=== PATIENT | male | born 1935 | race Caucasian/White ===

== ENCOUNTER → 2017-11-28 14:04 | Outpatient (CLI) | payer MEDICARE, OTHER, SELFPAY ==
[2017-11-28 16:16] LABS: ALB/GLOB Ratio 1.2 RATIO (0.9-2.4); AST(SGOT) 25 U/L (15-37); Alanine Aminotransfer ALT/SGPT 47 U/L (16-61); Albumin, Serum 3.7 g/dL (3.2-5.0); Alkaline Phosphatase 129 U/L (45-117); Anion Gap 8 (5-15); BUN 18 mg/dL (7-18); BUN/Creat Ratio 13.4 RATIO (10-20); Chloride 98 mmol/L (98-107); Creatinine, Serum 1.34 mg/dL (0.70-1.30); EST Glomerular Filtration Rate 54 mL/min (>60); Est Glom Filt Rate - Afr Amer 66 mL/min (>60); Globulin 3.1 g/dL (2.2-4.2); Glucose 144 mg/dL (74-106); Potassium 4.4 mmol/L (3.5-5.1); Protein, Total 6.8 g/dL (6.4-8.2); Sodium Level 138 mmol/L (136-145); Thyroid Stim Hormone (TSH) 6.59 uIU/mL (0.358-3.74); Uric Acid 6.2 mg/dL (3.5-7.2)
[2017-11-28 16:19] LABS: Absolute Lymphocyte Count 1.18 X10^3/ul (0.83-4.51); Absolute Neutrophil Count 9.3 X10^3/uL (2.0-7.7); Basophil# 0.01 X10^3/uL; Basophil% 0.1 % (0-1); Eosinophil# 0.15 X10^3/uL; Eosinophils% 1.3 % (0-5); Hemoglobin 14.9 g/dl (13.0-16.5); Lymphocyte # 1.18 X10^3/ul (4.0); Lymphocyte % 10.4 % (19-41); Mean Corp Hgb Conc 32.4 g/gl (32-36); Mean Corpuscular Hgb 31.2 pg (27.0-32.0); Mean Corpuscular Volume 96.4 fL (80-94); Monocyte# 0.67 X10^3/uL; Monocyte% 5.9 % (0-10); Neutrophil # 9.28 X10^3/uL (2.7-7.7); Platelet Count 197 K/mm3 (150-450); RBC Distribution Width CV 18.2 % (11.6-14.6); RBC Distribution Width SD 64.4 fl (35.1-43.9); Red Blood Count 4.77 M/mm3 (4.6-6.2); White Blood Count 11.3 K/mm3 (4.4-11.0)
[2017-11-28 16:20] LABS: POSITIVE COUNT NO; POSITIVE DIFFERENTIAL NO; POSITIVE MORPHOLOGY NO
== END ==
PROVIDERS: Family Provider Family Medicine Geriatric Medicine; PCP Family Medicine Geriatric Medicine; Visit Provider Family Medicine Geriatric Medicine
DX: E55.9 Vitamin D deficiency, unspecified (principal); I10 Essential (primary) hypertension; M10.9 Gout, unspecified
CPT/HCPCS: 36415; 80053; 82306; 84443; 84550; 85025

== ENCOUNTER → 2018-01-24 14:41 | Outpatient (CLI) | payer MEDICARE, OTHER, SELFPAY ==
[2018-01-23 13:42] LABS: Thyroid Stim Hormone (TSH) 3.33 uIU/mL (0.358-3.74)
== END ==
PROVIDERS: Family Provider Family Medicine Geriatric Medicine; PCP Family Medicine Geriatric Medicine; Visit Provider Family Medicine Geriatric Medicine
DX: E03.9 Hypothyroidism, unspecified (principal)

== ENCOUNTER 2018-03-01 20:30 | Inpatient (IN) | payer MEDICARE, OTHER, SELFPAY ==
--- NOTE | 2018-03-01 12:59 | EKG12_ITS ---
Test Reason : FALL Blood Pressure : / mmHG Vent. Rate : 060 BPM Atrial Rate : 060 BPM P-R Int : 214 ms QRS Dur : 142 ms QT Int : 500 ms P-R-T Axes : 049 -51 -14 degrees QTc Int : 500 ms Sinus rhythm with 1st degree A-V block Right bundle branch block Left anterior fascicular block Bifascicular block Abnormal ECG Confirmed by ERNESTINA MAZA, SUREKHA ([id number]), image editor SAVANAH UMAÑA ([id number]) on 03/06/2018 5:35:49 PM Referred By: Confirmed By:SUREKHA DO MD
--- NOTE | 2018-03-01 16:14 | CT_ITS ---
STUDY: CT BRAIN WITHOUT CONTRAST REASON FOR EXAM: Male, 82 years old. Trauma RADIATION DOSAGE (If Supplied By Facility): CTDIvol = ( 44.99 ) mGy, DLP = ( 863.60 ) mGycm TECHNIQUE: Transaxial CT imaging of the brain was performed without administration of intravenous contrast material. Individualized dose optimization techniques were used for this CT. COMPARISON: None. FINDINGS: Normal soft tissue structures. Normal calvarium. There is calcification of the cavernous carotids Moderate atrophy and advanced periventricular white matter ischemic changes. Normal basal ganglia and thalami. Normal brainstem. Normal cerebellum. There are postsurgical changes of the orbits There is no intracranial hemorrhage. There are no findings of an acute ischemic infarction. Normal visualized paranasal sinuses. CT/Brain/Head without Contrast IMPRESSION: Atrophy and advanced periventricular white matter ischemic changes. No evidence for acute intracranial bleed. Electronically Signed: Marcin Jett MD at 16:33 EDT , Service support ,
--- NOTE | 2018-03-01 16:25 | RAD_ITS ---
STUDY: X-RAY CHEST REASON FOR EXAM: Male, 82 years old. Weakness TECHNIQUE: Frontal and lateral views of the chest. COMPARISON: None. FINDINGS: Chronic appearing increased interstitial lung markings. There is no demonstrated pleural abnormality. Enlarged heart size. Calcified right perihilar lymph node. There is an elevated right hemidiaphragm. Normal visualized pulmonary arteries. There is atherosclerotic calcification of the aortic arch with tortuosity. There are diffuse degenerative changes of the visualized thoracic spine. There is degenerative osteoarthritis of the bilateral shoulders. There is no demonstrated abnormality of the visualized soft tissue structures of the upper abdomen. RAD/Chest PA and Lateral IMPRESSION: There are no acute findings. Electronically Signed: Kojo Lorenzo MD at 16:57 EDT , Service support ,
--- NOTE | 2018-03-02 09:00 | DT_ITS ---
This patient was seen during an EMR downtime February 25, 2018 - March 04, 2018. This patient may have a combination of paper and electronic documentation or all paper documentation. All documentation is viewable within the e-chart portion of [facility] for each patient visit.
[2018-03-03 07:39] LABS: Hematocrit 41.2 % (40-54); Hemoglobin 13.4 g/dl (13.0-16.5); Red Blood Count 4.19 M/mm3 (4.6-6.2); White Blood Count 11.3 K/mm3 (4.4-11.0)
[2018-03-03 07:40] LABS: Mean Corp Hgb Conc 32.5 g/gl (32-36); Mean Corpuscular Volume 98.3 fL (80-94); Mean Platelet Vol. 10.4 fl (6.2-12.0); Platelet Count 194 K/mm3 (150-450); RBC Distribution Width CV 16.7 % (11.6-14.6); RBC Distribution Width SD 59.3 fl (35.1-43.9); Scan Indicated on CBC? Y/N NO
[2018-03-03 12:48] LABS: Anion Gap 7 (5-15); BUN 18 mg/dL (7-18); BUN/Creat Ratio 14.9 RATIO (10-20); Calcium,Total 8.8 mg/dL (8.5-10.1); Chloride 105 mmol/L (98-107); Creatinine, Serum 1.21 mg/dL (0.70-1.30); EST Glomerular Filtration Rate 61 mL/min (>60); Est Glom Filt Rate - Afr Amer 74 mL/min (>60); Glucose 132 mg/dL (74-106); Magnesium 2.3 mg/dL (1.6-2.6); Potassium 4.1 mmol/L (3.5-5.1); Sodium Level 144 mmol/L (136-145)
[2018-03-04] MEDS: Nystatin Powder 15gm Bottle 1 APPLIC TOPICAL ×2 (06:00→21:07)
[2018-03-04] MEDS: Levothyroxine 25 MCG TABLET PO (06:00)
[2018-03-04] MEDS: Carbidopa/Levodopa 25/100 Tablet PO ×2 (06:00→21:06)
[2018-03-04] MEDS: Memantine Hydrochloride 5 MG Tablet 10 MG PO ×2 (08:00→21:08)
[2018-03-04] MEDS: Pantoprazole Sodium 40 MG Tablet PO (08:00)
[2018-03-04] MEDS: Amiodarone 200 MG Tablet 100 MG PO (08:00)
[2018-03-04] MEDS: amLODIPine 10 MG Tablet PO (08:00)
[2018-03-04] MEDS: Galantamine Hydrobromide 4 MG Tablet 12 MG PO ×2 (08:00→21:09)
[2018-03-04] MEDS: Enoxaparin 30 MG/0.3 ML Syringe SC (08:00)
[2018-03-04] MEDS: Aspirin 81 MG TAB.CHEW PO (08:00)
[2018-03-04 09:04] LABS: Bacteria 0 SEEN /hpf (None Seen); Mucous, Urine 0 SEEN /hpf (<or=2+); Red Blood Cells-Urine 0 SEEN /hpf (0-5); Squamous Epithelial Cells - UA 0 SEEN /hpf (0-5)
[2018-03-04 09:12] LABS: Color, Urine Yellow (Yellow); Urine Clarity Clear (Clear)
[2018-03-04 09:13] LABS: Glucose, Dipstick NEGATIVE (Normal); Ketone-Dipstick Negative (Negative); Leukocyte Esterase-Dipstick Negative /ul (Negative); Nitrite-Dipstick Negative (Negative); Occult Blood-Urine Negative /ul (Negative); Protein-Dipstick 30 mg/dl (Negative); Specific Gravity, Urine 1.005 (1.002-1.030); Urine Bilirubin Dipstick Negative (Negative); Urine Urobilinogen Normal (Normal); White Blood Cells 0 SEEN /hpf (0-5)
[2018-03-04 11:05] LABS: Eosinophils% 1.1 % (0-5); Hematocrit 41.5 % (40-54); Hemoglobin 13.7 g/dl (13.0-16.5); Lymphocyte % 7.6 % (19-41); Mean Corpuscular Hgb 32.5 pg (27.0-32.0); Mean Corpuscular Volume 98.6 fL (80-94); Mean Platelet Vol. 10.6 fl (6.2-12.0); Monocyte% 10.1 % (0-10); Neutrophil % 80.9 % (47-70); POSITIVE COUNT NO; POSITIVE DIFFERENTIAL NO; POSITIVE MORPHOLOGY NO; Platelet Count 190 K/mm3 (150-450); RBC Distribution Width CV 16.7 % (11.6-14.6); RBC Distribution Width SD 59.7 fl (35.1-43.9); Red Blood Count 4.21 M/mm3 (4.6-6.2); White Blood Count 9.4 K/mm3 (4.4-11.0)
[2018-03-04 11:06] LABS: Absolute Lymphocyte Count 0.71 X10^3/ul (0.83-4.51); Absolute Neutrophil Count 7.6 X10^3/uL (2.0-7.7); Basophil# 0.01 X10^3/uL; Basophil% 0.1 % (0-1); Lymphocyte # 0.71 X10^3/ul (4.0); Monocyte# 0.95 X10^3/uL; Neutrophil # 7.57 X10^3/uL (2.7-7.7)
[2018-03-04 11:07] LABS: Absolute Nucleated RBC Count 0.02 10^3/uL (0-5); NRBC Flagged by Analyzer 0.2 % (0-5)
[2018-03-04] MEDS: Menthol/Lanolin/Calamine/Znox 113 GM Tube 1 APPLIC TOPICAL ×2 (12:41→21:07)
--- NOTE | 2018-03-04 13:17 | CASEMGMT ---
MARITZA Deirdre spoke w/ and daughter in regard to discharge plan. They would like a referral sent to [facility]. MARITZA called [facility], faxed referral. Miracle is to call Deirdre back to let her know if they can take pt. JEAN Alfonso, CHEMICAL EQUIPMENT REPAIRER
--- NOTE | 2018-03-04 14:06 | PCM.PN.HOSP ---
Patient Problems: Active and Suspected Problems (Last Reviewed 02/13/18 @ 12:52 by Juni Acuna MD) Failure to thrive (Acute) General: Alert, No apparent distress HEENT: Atraumatic, Normocephalic Neck: No Nodes, Thyroid Normal Size and Texture Lungs: Clear to auscultation, Normal air movement, No rhonchi, No wheeze Cardiovascular: Regular rate, Regular Rhythm, Normal S1, Normal S2, No murmurs Abdomen: Bowel Sounds Present, Soft, Non Tender, Non-Distended Extremities: No edema, No Calf Tenderness Current Medications Acetaminophen (Tylenol) 650 mg PO Q4H PRN PRN PRN Reason: PAIN/FEVER Al Hydroxide/Mg Hydroxide (Mylanta Ii) 30 ml PO Q6H PRN PRN PRN Reason: Dyspepsia Amiodarone HCl (Cordarone) 100 mg PO DAILY [facility] Last Admin: 03/04/18 08:00 Dose: 100 mg Amlodipine Besylate (Norvasc) 10 mg PO DAILY [facility] Last Admin: 03/04/18 08:00 Dose: 10 mg Artificial Tears (Tears Naturale, Artificial Tears) 1 drop EACH EYE TID [facility] Last Admin: 03/04/18 06:00 Dose: 1 drop Aspirin (Aspirin, Baby) 81 mg PO DAILY@0800 [facility] Last Admin: 03/04/18 08:00 Dose: 81 mg Calamine/Phenol (Calmoseptine Ointment) 1 applic TOPICAL 4X/DAY [facility] Last Admin: 03/04/18 12:41 Dose: 1 units Carbidopa/Levodopa (Sinemet) 1 tablet PO TID [facility] Last Admin: 03/04/18 06:00 Dose: 1 tablet Enoxaparin Sodium (Lovenox) 30 mg SC DAILY [facility] Last Admin: 03/04/18 08:00 Dose: 30 mg Galantamine Hydrobromide (Razadyne) 12 mg PO BID [facility] Last Admin: 03/04/18 08:00 Dose: 12 mg Hydralazine HCl (Apresoline Iv) 10 mg IV Q4H PRN PRN PRN Reason: SBP > 160 Levothyroxine Sodium (Synthroid) 25 mcg PO DAILY@0600 [facility] Last Admin: 03/04/18 06:00 Dose: 25 mcg Memantine (Namenda) 10 mg PO BID [facility] Last Admin: 03/04/18 08:00 Dose: 10 mg Nystatin (Mycostatin Powder) 1 applic TOPICAL TID [facility] Last Admin: 03/04/18 06:00 Dose: 1 applicatio Ondansetron HCl (Zofran) 4 mg IV Q6H PRN PRN PRN Reason: NAUSEA/VOMITING Oxycodone HCl (Oxyir) 5 - 10 mg PO Q4H PRN PRN PRN Reason: MILD-MOD PAIN (1-5/10) Pantoprazole Sodium (Protonix) 40 mg PO DAILY [facility] Last Admin: 03/04/18 08:00 Dose: 40 mg Sodium Chloride () 5 - 30 ml IV UD PRN PRN Reason: SALINE FLUSH Medical Necessity - Tobacco Use Smoking Status: Former smoker Assessment/Plan All Active Problems (Last Reviewed 02/13/18 @ 12:52 by Juni Acuna MD) Failure to thrive (Acute) Hypomagnesemia (Resolved) Atherosclerosis of coronary artery of [place] heart without angina pectoris (Ruled-out) 1. Failure to thrive d/t PD and AD plan for W, referral sent today 2. Parkinson's disease on Sinemet d/w patient that the goal of a SNF is get him to [place] where he will be safe to return home. Additionally, I explained to him that any gains he makes now, he will inevitably lose on account of the PD 3. VTE proph: lovenox Code Visit Inpatient E&M: 74062 Subs Hosp L2
--- NOTE | 2018-03-04 14:10 | PN_ITS ---
Patient Problems: Active and Suspected Problems (Last Reviewed 02/13/18 @ 12:52 by Juni Acuna MD ) Failure to thrive (Acute) General: Alert, No apparent distress HEENT: Atraumatic, Normocephalic Neck: No Nodes, Thyroid Normal Size and Texture Lungs: Clear to auscultation, Normal air movement, No rhonchi, No wheeze Cardiovascular: Regular rate, Regular Rhythm, Normal S1, Normal S2, No murmurs Abdomen: Bowel Sounds Present, Soft, Non Tender, Non-Distended Extremities: No edema, No Calf Tenderness Current Medications Acetaminophen (Tylenol) 650 mg PO Q4H PRN PRN PRN Reason: PAIN/FEVER Al Hydroxide/Mg Hydroxide (Mylanta Ii) 30 ml PO Q6H PRN PRN PRN Reason: Dyspepsia Amiodarone HCl (Cordarone) 100 mg PO DAILY [facility] Last Admin: 03/04/18 08:00 Dose: 100 mg Amlodipine Besylate (Norvasc) 10 mg PO DAILY [facility] Last Admin: 03/04/18 08:00 Dose: 10 mg Artificial Tears (Tears Naturale, Artificial Tears) 1 drop EACH EYE TID [facility] Last Admin: 03/04/18 06:00 Dose: 1 drop Aspirin (Aspirin, Baby) 81 mg PO DAILY@0800 [facility] Last Admin: 03/04/18 08:00 Dose: 81 mg Calamine/Phenol (Calmoseptine Ointment) 1 applic TOPICAL 4X/DAY [facility] Last Admin: 03/04/18 12:41 Dose: 1 units Carbidopa/Levodopa (Sinemet) 1 tablet PO TID [facility] Last Admin: 03/04/18 06:00 Dose: 1 tablet Enoxaparin Sodium (Lovenox) 30 mg SC DAILY [facility] Last Admin: 03/04/18 08:00 Dose: 30 mg Galantamine Hydrobromide (Razadyne) 12 mg PO BID [facility] Last Admin: 03/04/18 08:00 Dose: 12 mg Hydralazine HCl (Apresoline Iv) 10 mg IV Q4H PRN PRN PRN Reason: SBP > 160 Levothyroxine Sodium (Synthroid) 25 mcg PO DAILY@0600 [facility] Last Admin: 03/04/18 06:00 Dose: 25 mcg Memantine (Namenda) 10 mg PO BID [facility] Last Admin: 03/04/18 08:00 Dose: 10 mg Nystatin (Mycostatin Powder) 1 applic TOPICAL TID [facility] Last Admin: 03/04/18 06:00 Dose: 1 applicatio Ondansetron HCl (Zofran) 4 mg IV Q6H PRN PRN PRN Reason: NAUSEA/VOMITING Oxycodone HCl (Oxyir) 5 - 10 mg PO Q4H PRN PRN PRN Reason: MILD-MOD PAIN (1-5/10) Pantoprazole Sodium (Protonix) 40 mg PO DAILY [facility] Last Admin: 03/04/18 08:00 Dose: 40 mg Sodium Chloride () 5 - 30 ml IV UD PRN PRN Reason: SALINE FLUSH Medical Necessity - Tobacco Use Smoking Status: Former smoker Assessment/Plan All Active Problems (Last Reviewed 02/13/18 @ 12:52 by Juni Acuna MD) Failure to thrive (Acute) Hypomagnesemia (Resolved) Atherosclerosis of coronary artery of [place] heart without angina pectoris ( Ruled-out) 1. Failure to thrive * d/t PD and AD * plan for W, referral sent today 2. Parkinson's disease * on Sinemet * d/w patient that the goal of a SNF is get him to [place] where he will be safe to return home. Additionally, I explained to him that any gains he makes now, he will inevitably lose on account of the PD 3. VTE proph: lovenox Code Visit Inpatient E&M: 52309 Subs Hosp L2
[2018-03-04 15:40] VITALS: BP 166/89; PULSE 62; RESP 16; TEMP 36.6; O2SAT 99
[2018-03-04 15:54] VITALS: BP 166/89; PULSE 62
[2018-03-04] MEDS: hydrALAZINE 20 MG/ML Vial 10 MG IV (15:54)
[2018-03-04 20:50] VITALS: BP 134/64; PULSE 70; RESP 18; TEMP 36.9; O2SAT 98
[2018-03-04 20:54] VITALS: PULSE 70; RESP 18; O2SAT 98
[2018-03-04 21:58] LABS: Anion Gap 5 (5-15); BUN 23 mg/dL (7-18); BUN/Creat Ratio 16.7 RATIO (10-20); Calcium,Total 8.9 mg/dL (8.5-10.1); Chloride 101 mmol/L (98-107); Creatinine, Serum 1.38 mg/dL (0.70-1.30); EST Glomerular Filtration Rate 52 mL/min (>60); Est Glom Filt Rate - Afr Amer 63 mL/min (>60); Glucose 151 mg/dL (74-106); Potassium 4.6 mmol/L (3.5-5.1); Sodium Level 139 mmol/L (136-145)
[2018-03-05 01:37] LABS: Anion Gap 6 (5-15); BUN 19 mg/dL (7-18); BUN/Creat Ratio 14.4 RATIO (10-20); Calcium,Total 8.5 mg/dL (8.5-10.1); Chloride 103 mmol/L (98-107); Creatinine, Serum 1.32 mg/dL (0.70-1.30); EST Glomerular Filtration Rate 55 mL/min (>60); Est Glom Filt Rate - Afr Amer 67 mL/min (>60); Glucose 193 mg/dL (74-106); Phosphorus 2.2 mg/dL (2.5-4.9); Potassium 3.8 mmol/L (3.5-5.1); Sodium Level 139 mmol/L (136-145)
[2018-03-05 01:38] LABS: T4 Free Direct 1.24 ng/dL (0.76-1.46); Thyroid Stim Hormone (TSH) 2.62 uIU/mL (0.358-3.74)
[2018-03-05 03:20] VITALS: BP 135/77; PULSE 68; RESP 18; TEMP 36.7; O2SAT 96
[2018-03-05 03:28] VITALS: PULSE 68
[2018-03-05] MEDS: Carbidopa/Levodopa 25/100 Tablet PO ×2 (06:33→13:53)
[2018-03-05] MEDS: Nystatin Powder 15gm Bottle 1 APPLIC TOPICAL ×2 (06:34→13:53)
[2018-03-05] MEDS: Levothyroxine 25 MCG TABLET PO (06:34)
[2018-03-05 08:07] VITALS: BP 113/66; PULSE 59; RESP 16; TEMP 37; O2SAT 96
[2018-03-05] MEDS: Aspirin 81 MG TAB.CHEW PO (08:10)
[2018-03-05] MEDS: Amiodarone 200 MG Tablet 100 MG PO (08:11)
[2018-03-05] MEDS: amLODIPine 10 MG Tablet PO (08:12)
[2018-03-05] MEDS: Enoxaparin 30 MG/0.3 ML Syringe SC (08:12)
[2018-03-05] MEDS: Pantoprazole Sodium 40 MG Tablet PO (08:13)
[2018-03-05] MEDS: Galantamine Hydrobromide 4 MG Tablet 12 MG PO (08:13)
[2018-03-05] MEDS: Memantine Hydrochloride 5 MG Tablet 10 MG PO (08:14)
--- NOTE | 2018-03-05 09:52 | CASEMGMT ---
Social Work Note SW received message from Miracle at [facility] stating that she is able to accept pt. MARITZA placed a call back to Miracle and left a message updating her that pt should be discharging today and that this worker will fax over discharge paperwork when completed. Plan: [facility] today for rehabilitation Deirdre Alonso CAPABILITY LEAD, HOME STAGING SPECIALIST
[2018-03-05] MEDS: Menthol/Lanolin/Calamine/Znox 113 GM Tube 1 APPLIC TOPICAL ×2 (10:29→13:53)
--- NOTE | 2018-03-05 11:18 | PCM.TXEXTCAR ---
- Diet 03/05/18 03:03 Diet: Regular Diet - Wound(s) R lateral elbow Wound Type: Skin Tear UPPER BACK Wound Type: Abscess - Allergies/Procedures Done in Hospital Allergies/Adverse Reactions: Allergies No Known Allergies Allergy (Verified 02/13/18 12:33) - Type of Care/Length of Stay Estimated LOS: Convalescent Care Less Than 30 days Type of Care Needed: Skilled Rehab Potential: Fair Prognosis: Fair - Additional Orders/Day of Discharge H&P will serve as current which was dated: 03/02/18 Day of Discharge: 03/05/18 - Follow Up Care Primary Care Physician: Sarwat Sanches Chi, MD [Primary Care Provider] - In 1 Week
--- NOTE | 2018-03-05 11:20 | PCM.DC.SUM ---
Discharge Date and Diagnosis Date of Admission: 10/10/16 Date of Discharge: 03/05/18 - Primary Discharge Diagnosis Active and Suspected Problems (Last Reviewed 02/13/18 @ 12:52 by Juni Acuna MD) Failure to thrive (Acute) - Secondary Discharge Diagnosis Chronic Problems (Last Reviewed 02/13/18 @ 12:52 by Juni Acuna MD) Syncope (Chronic) History of loop recorder (Chronic 10/12/16) Right bundle branch block (Chronic) Hyperlipidemia (Chronic) Hypertension (Chronic) Paroxysmal atrial fibrillation (Chronic) Atrial flutter (Chronic) Hospital Course and Treatment Operations: None Summary of Care Provided: The patient is a 82 year old M with history of paroxysmal atrial fibrillation and PD who presented to the hospital due to recent weakness. He has Failure to thrive due to progressive Parkinson's disease and dementia , he can no longer take care of himself at home. He has significant fall risk. He underwent physical and occupational therapy and was recommended for senior care facility. The patient was discharged to [facility] in stable condition. Regarding his Parkinson's disease, he is on Sinemet. Regarding his atrial fibrillation; he is on amiodarone and aspirin, he is at increased risk for bleeding due to his risk of falls and therefore he is not on anticoagulation therapy. Discharge Diet: No Restrictions Home Medications: Medications to take at Discharge aspirin 81 mg tablet,delayed release 81 mg PO DAILY 02/13/18 carbidopa 25 mg-levodopa 100 mg tablet 1 tab PO TID 02/13/18 galantamine ER 24 mg 24 hr capsule,extended release 24 mg PO DAILY 02/13/18 levothyroxine 25 mcg tablet 25 mcg PO DAILY 02/13/18 memantine 28 mg capsule sprinkle,extended release 24hr 28 mg PO DAILY 02/13/18 Amiodarone HCl 100 mg PO DAILY 03/05/18 Primary Care Physician: Sarwat Sanches Chi, MD [Primary Care Provider] - In 1 Week Medical Necessity - Tobacco Use Smoking Status: Former smoker Meaningful Use Info Meaningful Use Diagnoses (Choose all that apply): None applicable Code Visit Inpatient E&M: 36332 Disch Hosp
--- NOTE | 2018-03-05 13:12 | CASEMGMT ---
Social Work Note Dr. Tolentino is discharging pt. MARITZA faxed completed discharge paperwork to Miracle at [facility] including transfer to extended care facility and signed medication list. Originals in SNF and copies on pt's chart. MARITZA completed convalescent [facility] in [place]. MARITZA in to update pt that he is being discharged and pt's Marcy is present in room. MARITZA updated pt and Marcy that [facility] has accepted pt and the doctor is discharging pt. Pt's Marcy states that she would like transportation to be set up. MARITZA set up transportation through [employer] via [facility] for 2:00pm. Transportation form in SNF folder and copy on pt's chart. MARITZA updated school secretary Nancy, BRET Rosenbaum and and Miracle at [facility] of transportation time. MARITZA in to update pt and pt's of transportation. Pt and pt's Marcy states understanding. Pt and pt's denied additional needs or concerns at this time. Plan: Pt to discharge to [facility] today for rehabilitation. Transportation is set up through [facility] via [facility] for 2:00pm. Deirdre Alonso FAIRING WORKER, PROOF PRESS OPERATOR
[2018-03-05 13:57] VITALS: BP 141/7; PULSE 57; RESP 16; TEMP 36.3; O2SAT 98
[2018-03-05 17:51] LABS: Hematocrit 40.8 % (40-54); Hemoglobin 13.5 g/dl (13.0-16.5); Mean Corp Hgb Conc 33.1 g/gl (32-36); Mean Corpuscular Hgb 32.5 pg (27.0-32.0); Mean Corpuscular Volume 98.3 fL (80-94); RBC Distribution Width CV 16.7 % (11.6-14.6); RBC Distribution Width SD 59.8 fl (35.1-43.9); Red Blood Count 4.15 M/mm3 (4.6-6.2); White Blood Count 10.9 K/mm3 (4.4-11.0)
[2018-03-05 17:52] LABS: Mean Platelet Vol. 10.4 fl (6.2-12.0); Platelet Count 193 K/mm3 (150-450); Scan Indicated on CBC? Y/N NO
== END 2018-03-05 15:15 | disposition home or self-care (01) | DRG 641 ==
LOC: ED 03-02 07:48 → MS3 03-02 07:49
PROVIDERS: Emergency Medicine; Internal Medicine; Admitting Provider Family Medicine; Emergency Provider Emergency Medicine; Family Provider Family Medicine Geriatric Medicine; PCP Family Medicine Geriatric Medicine
DX: R62.7 Adult failure to thrive (principal); G30.9 Alzheimer's disease, unspecified; F02.80 Dementia in other diseases classified elsewhere, unspecified severity, without behavioral disturbance, psychotic disturbance, mood disturbance, and anxiety; G20 Parkinson's disease; R29.6 Repeated falls; I10 Essential (primary) hypertension; I25.10 Atherosclerotic heart disease of native coronary artery without angina pectoris; I48.0 Paroxysmal atrial fibrillation; E03.9 Hypothyroidism, unspecified; Z87.891 Personal history of nicotine dependence; Z66 Do not resuscitate; Z79.82 Long term (current) use of aspirin; Z79.899 Other long term (current) drug therapy
CPT/HCPCS: 36415; 70450; 71046; 80048; 81001; 83735; 84100; 84439; 84443; 84484; 85025; 85027; 93005; 96360; 96361; 97110; 97116; 97162; 97166; 97530; 97535; 97802; 99285; J7030; P9612; A4216; G8978; G8979; G8987; G8988

== ENCOUNTER 2018-05-31 11:10 | Inpatient (IN) | payer MEDICARE, OTHER, MEDICAID, SELFPAY ==
[2018-05-31] VITALS (11 sets, daily range): BP systolic 121–143; BP diastolic 69–82; PULSE 38–54; RESP 9–19; TEMP 33.9–36.4; O2SAT 94–98; BMI 29.6; BMI 27.6
--- NOTE | 2018-05-31 11:36 | EKG12_ITS ---
Test Reason : BRADYCARDIA Blood Pressure : / mmHG Vent. Rate : 045 BPM Atrial Rate : 045 BPM P-R Int : 228 ms QRS Dur : 156 ms QT Int : 556 ms P-R-T Axes : 059 -42 016 degrees QTc Int : 480 ms Sinus bradycardia with 1st degree A-V block Left axis deviation Right bundle branch block Abnormal ECG Confirmed by DAVE TAVERA ([id number]), editorial project manager SAVANAH UMAÑA ([id number]) on 06/04/2018 2:28:35 PM Referred By: ARNULFO Confirmed By:DAVE TAVERA
[2018-05-31 12:21] LABS: Absolute Lymphocyte Count 0.53 X10^3/ul (0.83-4.51); Absolute Neutrophil Count 4.8 X10^3/uL (2.0-7.7); Eosinophil# 0.35 X10^3/uL; Eosinophils% 5.6 % (0-5); Hematocrit 34.8 % (40-54); Hemoglobin 11.6 g/dl (13.0-16.5); Lymphocyte # 0.53 X10^3/ul (4.0); Lymphocyte % 8.5 % (19-41); Mean Corp Hgb Conc 33.3 g/gl (32-36); Mean Corpuscular Hgb 31.4 pg (27.0-32.0); Mean Corpuscular Volume 94.3 fL (80-94); Mean Platelet Vol. 11.3 fl (6.2-12.0); Monocyte# 0.59 X10^3/uL; Monocyte% 9.5 % (0-10); Neutrophil # 4.76 X10^3/uL (2.7-7.7); Neutrophil % 76.2 % (47-70); Platelet Count 89 K/mm3 (150-450); RBC Distribution Width CV 17.1 % (11.6-14.6); RBC Distribution Width SD 56.1 fl (35.1-43.9); Red Blood Count 3.69 M/mm3 (4.6-6.2); White Blood Count 6.2 K/mm3 (4.4-11.0)
[2018-05-31 12:22] LABS: Differential Indicated SCAN CRITERIA MET; POSITIVE COUNT NO; POSITIVE DIFFERENTIAL YES; POSITIVE MORPHOLOGY NO
[2018-05-31 12:42] LABS: Anion Gap 7 (5-15); BUN 22 mg/dL (7-18); BUN/Creat Ratio 19.6 RATIO (10-20); Calcium,Total 8.3 mg/dL (8.5-10.1); Chloride 102 mmol/L (98-107); Creatinine, Serum 1.12 mg/dL (0.70-1.30); EST Glomerular Filtration Rate 66 mL/min (>60); Est Glom Filt Rate - Afr Amer 80 mL/min (>60); Estimated Creatinine Clearance 54.85 ml/min; Glucose 106 mg/dL (74-106); Potassium 4.4 mmol/L (3.5-5.1); Sodium Level 139 mmol/L (136-145)
--- NOTE | 2018-05-31 13:09 | ED.RN ---
lactic 2.[address] called [address] lab[address] dr giron aware
--- NOTE | 2018-05-31 13:59 | NURSING ---
DR MENA FOR DR ARREDONDO
--- NOTE | 2018-05-31 14:09 | NURSING ---
PCU BRADYCARDIA KOTSONIS
[2018-05-31 14:35] LABS: Thyroid Stim Hormone (TSH) 8.64 uIU/mL (0.358-3.74)
[2018-05-31 16:08] LABS: Reflex Lactate? Y
[2018-05-31 16:48] LABS: Absolute Lymphocyte Count 0.63 X10^3/ul (0.83-4.51); Absolute Neutrophil Count 3.2 X10^3/uL (2.0-7.7); Basophil# 0.01 X10^3/uL; Basophil% 0.2 % (0-1); Eosinophil# 0.35 X10^3/uL; Eosinophils% 7.6 % (0-5); Hematocrit 35.1 % (40-54); Hemoglobin 11.4 g/dl (13.0-16.5); Lymphocyte # 0.63 X10^3/ul (4.0); Lymphocyte % 13.6 % (19-41); Mean Corp Hgb Conc 32.5 g/gl (32-36); Mean Corpuscular Hgb 30.7 pg (27.0-32.0); Mean Corpuscular Volume 94.6 fL (80-94); Mean Platelet Vol. 12.3 fl (6.2-12.0); Monocyte# 0.47 X10^3/uL; Monocyte% 10.2 % (0-10); Neutrophil # 3.16 X10^3/uL (2.7-7.7); Neutrophil % 68.2 % (47-70); Platelet Count 103 K/mm3 (150-450); RBC Distribution Width CV 17.1 % (11.6-14.6); RBC Distribution Width SD 55.9 fl (35.1-43.9); Red Blood Count 3.71 M/mm3 (4.6-6.2); White Blood Count 4.6 K/mm3 (4.4-11.0)
[2018-05-31 16:49] LABS: POSITIVE COUNT NO; POSITIVE DIFFERENTIAL NO; POSITIVE MORPHOLOGY NO
--- NOTE | 2018-05-31 16:50 | ED.VISSUMM ---
- ER Visit Summary Date of Service: 05/31/18 Chief Complaint: Low heart rate History of Present Illness: The patient is a 82 M who presents with a low heart rate. Patient was just discharged from this facility recently and was placed in a residential. They noted that his heart rate was decreased. Patient denied any chest pain with it. EMS was called to transport him here. They gave atropine in route. Patient is on amiodarone and Norvasc. Patient was in the hospital for UTI and pneumonia and was at one point on dopamine. Physical Examination: Vital signs reviewed. HEENT exam unremarkable. Heart is cardiac in regular rhythm without murmurs. Lungs are clear to auscultation. Abdomen is soft and nontender. Extremities reveal no edema. Skin exam normal. Neurologic exam has diffuse overall weakness Test Results: EKG is sinus bradycardia with a rate of 45. Nonspecific ST and T-wave changes noted. Labs are normal except for hemoglobin 11.6 Emergency Department Course and Treatment: Patient was continuing to be bradycardic in the emergency department. He will drop down into the mid 30s. His blood pressure maintained to be normal and his mental status was unchanged. I discussed this with Dr. Eng who saw the patient in the hospital earlier this week. He recommended discontinuing his amiodarone. Due to the patient's symptoms, his comorbidities and his age, I feel he should be admitted for observation on telemetry. I discussed this with the hospitalist for admission Treatment Plan: [] Disposition: Admit Impression: Sinus bradycardia This note was generated with [employer] dictation software. It may contain incorrect words, spelling, and punctuation that were not noted in review of the chart prior to signing ED Disposition - Plan for ED Patient: Disposition: Acute Care Hospital [facility] Chief Complaint: General Illness
--- NOTE | 2018-05-31 17:05 | PCM.HP.STD ---
Problem List (1) Hypothermia Status: Acute (2) Hypothyroidism Status: Acute Qualifiers: (3) Bradycardia Status: Acute (4) Hyperlipidemia Status: Chronic Qualifiers: (5) Hypertension Status: Chronic Qualifiers: (6) Paroxysmal atrial fibrillation Status: Chronic History of Present Illness Date of Admission: 05/31/18 Chief Complaint: Hypothermia and bradycardia The patient is a 82 year old M from a snf with a h/o a-fib, parkinsons, dementia and hypertension presenting with acute significant bradycardia and hypothermia. He is more confused than normal and is stuporous but arousable though he is incoherent. family was in the room but could not answer many question other than he was more confused than normal. In the ER his TSH was increased to 8.64 from 6.6 on 05/26. Also he was sinus saravanan with a normal troponin. The ER discussed the case with cardiology who recommended to to DC the amiodarone which he has been on for 4 years, per the family, without incident. 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) Syncope (Chronic) History of loop recorder (Chronic 10/12/16) Right bundle branch block (Chronic) Hyperlipidemia (Chronic) Hypertension (Chronic) Paroxysmal atrial fibrillation (Chronic) Atrial flutter (Chronic) Medical History: Medical History (Last Reviewed 02/13/18 @ 12:52 by Juni Acuna MD) Right bundle branch block (Chronic) I45.10 Hyperlipidemia (Chronic) E78.5 Hypertension (Chronic) I10 Paroxysmal atrial fibrillation (Chronic) I48.0 Atrial flutter (Chronic) I48.92 Alzheimer disease G30.9, F02.80 Atherosclerosis of coronary artery of [place] heart without angina pectoris (Ruled-out) I25.10 Allergies No Known Allergies Allergy (Verified 05/31/18 11:15) Home Medications: Ambulatory Orders Medication Instructions Recorded aspirin 81 mg tablet,delayed 81 mg PO DAILY 02/13/18 release carbidopa 25 mg-levodopa 100 mg 1 tab PO TID 02/13/18 tablet galantamine ER 24 mg 24 hr 24 mg PO DAILY 02/13/18 capsule,extended release levothyroxine 25 mcg tablet 25 mcg PO DAILY 02/13/18 memantine 28 mg capsule 28 mg PO DAILY 02/13/18 sprinkle,extended release 24hr Amiodarone HCl 100 mg PO DAILY 03/05/18 Amlodipine [Norvasc] 5 mg PO DAILY 05/26/18 Melatonin 3 mg PO QHS 05/26/18 Polyethylene Glycol 3350 [Purelax] 17 gm PO DAILY 05/26/18 traZODone [Desyrel] 50 mg PO QHS 05/26/18 Ipratropium/Albuterol Sulfate 3 ml INHALATION Q6H PRN PRN 05/30/18 [Duoneb] ampul.neb Ciprofloxacin [Cipro] 500 mg PO BID 05/31/18 Smz/Tmp Ds [Bactrim Ds] 1 tablet PO BID 05/31/18 Surgical History: Surgical History (Last Reviewed 02/13/18 @ 12:52 by Juni Acuna MD) History of loop recorder (Chronic) Onset Date: 10/12/16 Z98.890 History of cardioversion Onset Date: 06/15/14 Z98.890 ELENA guided DCCV; Successful DC cardioversion into sinus rhythm 12/29/2013 and 06/15/2014 History of left heart catheterization Onset Date: 12/09/13 Z98.890 1. Angiographically normal left main coronary artery. 2. Left anterior descending artery with no significant disease. 3. Left circumflex artery With no significant disease. 4. Dominant right coronary artery with no significant disease. 5. Preserved ejection fraction. Surgical History: cataract, - - Unilateral nephrectomy with history of congenital kidney disease, loop recorder placement, cataract surgery, cardioversion. Psychiatric History: No pertinent psych hx Smoking Status: Former smoker Alcohol: None Drugs: None - *Family History Maternal History Items: No pertinent history Paternal History Items: - - Patient without any marketed maternal or paternal family history including heart disease, diabetes, cancer. Sibling History Items: - - Patient without any marketed maternal or paternal family history including heart disease, diabetes, cancer. Review of Systems Unable to obtain accurate/complete ROS d/t: confusion and lethargy VTE Information - Inpt Only VTE Present on Admission: No Patient Problems: Active and Suspected Problems (Last Reviewed 02/13/18 @ 12:52 by Juni Acuna MD) Hypothermia (Acute) - Physical Exam General: Confused, Disoriented, Lethargic HEENT: Atraumatic, EOMI, Normocephalic Oral: Dry Mucosa Neck: Supple, No JVD Lungs: Clear to auscultation, Normal air movement, No rhonchi, No wheeze, No rales Cardiovascular: Regular Rhythm, Normal S1, Normal S2, Bradycardic Abdomen: Soft, Non Tender, Non-Distended, No Hepato-splenomegaly Extremities: Capillary Refill Less than 3 Seconds Skin: No rashes, No breakdown Vital Signs Temp Pulse Resp BP Pulse Ox 96.7 F L 44 L 16 139/76 H 95 05/31/18 16:00 05/31/18 16:38 05/31/18 16:00 05/31/18 16:00 05/31/18 16:37 Oxygen Delivery Method Room Air Weight: 203 lb 11.314 oz Body Mass Index (BMI) 27.6 Laboratory Tests Past 24 Hrs 05/31/18 05/31/18 16:22 16:22 WBC 4.6 RBC 3.71 L Hgb 11.4 L Hct 35.1 L MCV 94.6 H MCH 30.7 MCHC 32.5 RDW 17.1 H RDW Differential 55.9 H Plt Count 103 L MPV 12.3 H Immature Gran % (Auto) 0.200 Neut % (Auto) 68.2 Lymph % (Auto) 13.6 L Whitman % (Auto) 10.2 H Eos % (Auto) 7.6 H Baso % (Auto) 0.2 Absolute Neuts (auto) 3.2 Absolute Lymphs (auto) 0.63 L Total Counted Not Reportable Lactic Acid Pending Assessment/Plan All Active Problems (Last Reviewed 02/13/18 @ 12:52 by Juni Acuna MD) Septic shock (Acute) HCAP (healthcare-associated pneumonia) (Acute) UTI (urinary tract infection) (Acute) ALYSSA (acute kidney injury) (Acute) Hyperkalemia (Acute) Lactic acidosis (Acute) Hypothyroidism (Acute) Bradycardia (Acute) Hypothermia (Acute) Failure to thrive (Acute) Hypomagnesemia (Resolved) Atherosclerosis of coronary artery of [place] heart without angina pectoris (Ruled-out) 1. Bradycardia/hypothermia/A-fib/HTN/hypothyroidism - given this constellation of symptom, will start on IV synthroid 50 mcg for 2 days then switch to oral - He is on 25 mcg at home which is apparently ineffective - will stop the amiodarone as well - c/w to cardiology for further recommendations -continue with warming blankets and bear-hugger - can eat when he becomes more alert - Will hold his home antihypertensive until his heart rate returns to normal 2. Parkinson - stable - will c/w his cinemet 3. Dementia - baseline has been stable - Will c/w galantamine and memantine 4. Insomnia - will hold trazodone until he becomes more alert 5. UTI - Will c/w his home cipro - cx on .2 grew K. pneumo sensitive to cipro - last dose should probably be 06/03 DVT: Lovenox Diet: cardiac diet when able Code Visit Inpatient E&M: 75460 Init Hosp L3
[2018-05-31] MEDS: LEVOTHYROXINE SODIUM 200 MCG VIAL 50 MCG IV (17:19)
[2018-05-31] MEDS: Galantamine Hydrobromide 4 MG Tablet 12 MG PO (21:41)
[2018-05-31] MEDS: MELATONIN 3 MG TABLET PO (21:41)
[2018-05-31] MEDS: Ciprofloxacin 500 MG Tablet PO (21:41)
[2018-05-31] MEDS: Memantine Hydrochloride 10 MG Tablet PO (21:42)
[2018-05-31] MEDS: Carbidopa/Levodopa 25/100 Tablet PO (21:42)
[2018-06-01] VITALS (14 sets, daily range): BP systolic 105–144; BP diastolic 56–74; PULSE 38–55; RESP 7–16; TEMP 36.3–36.6; O2SAT 90–97
--- NOTE | 2018-06-01 05:55 | EKG12_ITS ---
Test Reason : AM Blood Pressure : / mmHG Vent. Rate : 053 BPM Atrial Rate : 053 BPM P-R Int : 210 ms QRS Dur : 148 ms QT Int : 506 ms P-R-T Axes : 068 -63 025 degrees QTc Int : 474 ms Sinus bradycardia with 1st degree A-V block with Premature atrial complexes Right bundle branch block Left anterior fascicular block Bifascicular block Abnormal ECG When compared with ECG of 31-MAY-2018 11:39, MANUAL COMPARISON REQUIRED, DATA IS UNCONFIRMED Confirmed by ERNESTINA MAZA, SUREKHA ([id number]), editorial specialist SAVANAH UMAÑA ([id number]) on 06/05/2018 2:01:31 PM Referred By: TRINA Confirmed By:SUREKHA OD MD
[2018-06-01] MEDS: Aspirin E.C. 81 MG Tablet PO (06:50)
[2018-06-01 09:32] LABS: Hematocrit 37.3 % (40-54); Hemoglobin 12.4 g/dl (13.0-16.5); Mean Corp Hgb Conc 33.2 g/gl (32-36); Mean Corpuscular Hgb 31.1 pg (27.0-32.0); Mean Corpuscular Volume 93.5 fL (80-94); Mean Platelet Vol. 11.6 fl (6.2-12.0); Platelet Count 96 K/mm3 (150-450); RBC Distribution Width CV 16.7 % (11.6-14.6); Red Blood Count 3.99 M/mm3 (4.6-6.2); White Blood Count 5.5 K/mm3 (4.4-11.0)
[2018-06-01 09:34] LABS: Scan Indicated on CBC? Y/N NO
[2018-06-01 09:36] LABS: Prothrombin Time (Protime)PT. 13.5 SECONDS (11.7-14.9)
[2018-06-01 09:37] LABS: Partial Thromboplast Time 32.3 Seconds (24.1-36.2)
--- NOTE | 2018-06-01 09:46 | PCM.CONS.C ---
Problem List (1) Bradycardia Status: Acute (2) Right bundle branch block Status: Chronic (3) Hyperlipidemia Status: Chronic Qualifiers: (4) Hypertension Status: Chronic Qualifiers: (5) Paroxysmal atrial fibrillation Status: Chronic Reason for Consult Date of Consultation: 06/01/18 Reason for Consultation: Bradycardia, hypothermia, History of Present Illness: The patient is a 82 year old M, patient of Dr. Quezada with multiple medical problems including Parkinson's, dementia, hypertension, paroxysmal atrial fibrillation on chronic amiodarone therapy, currently lives in a detention. Patient was recently admitted several days ago with hypertension, junctional bradycardia, and hyperkalemia. The patient's electrolytes were corrected and his rhythm spontaneously reverted back to normal sinus rhythm. Patient does have a loop recorder but not a pacemaker. The patient was then transferred back to the detention. Patient was found to be bradycardic with heart rate in the 40s, and hypothermic as well. He was transferred back to [facility] where he was found to be in sinus bradycardia, with an elevated TSH of 8.6. His potassium was found to be normal at that time. His Synthroid was increased from 25-50 mcg daily. Currently the patient is awake, alert, answers questions appropriately. He has typical parkinsonian mask with decreased movement. He underwent a dobutamine echocardiogram this morning to evaluate for chronotropic competence, and his heart rate increased appropriately. In fact he had transient atrial fibrillation which reverted back to normal sinus rhythm at the conclusion of the procedure. He had no chest pain symptoms and no evidence of ischemia by echocardiogram. [] Past Medical History Allergies/Adverse Reactions: Allergies No Known Allergies Allergy (Verified 05/31/18 11:15) Home Medications: Ambulatory Orders Medication Instructions Recorded aspirin 81 mg tablet,delayed 81 mg PO DAILY 02/13/18 release carbidopa 25 mg-levodopa 100 mg 1 tab PO TID 02/13/18 tablet galantamine ER 24 mg 24 hr 24 mg PO DAILY 02/13/18 capsule,extended release levothyroxine 25 mcg tablet 25 mcg PO DAILY 02/13/18 memantine 28 mg capsule 28 mg PO DAILY 02/13/18 sprinkle,extended release 24hr Amiodarone HCl 100 mg PO DAILY 03/05/18 Amlodipine [Norvasc] 5 mg PO DAILY 05/26/18 Melatonin 3 mg PO QHS 05/26/18 Polyethylene Glycol 3350 [Purelax] 17 gm PO DAILY 05/26/18 traZODone [Desyrel] 50 mg PO QHS 05/26/18 Ipratropium/Albuterol Sulfate 3 ml INHALATION Q6H PRN PRN 05/30/18 [Duoneb] ampul.neb Ciprofloxacin [Cipro] 500 mg PO BID 05/31/18 Smz/Tmp Ds [Bactrim Ds] 1 tablet PO BID 05/31/18 Past Medical History (Chronic Problems): Chronic Problems (Last Reviewed 02/13/18 @ 12:52 by Juni Acuna MD) 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 Psychiatric History: No pertinent psych hx - *Family History Maternal History Items: No pertinent history Paternal History Items: - - Patient without any marketed maternal or paternal family history including heart disease, diabetes, cancer. Sibling History Items: - - Patient without any marketed maternal or paternal family history including heart disease, diabetes, cancer. Smoking Status: Former smoker Alcohol: None Drugs: None Review of Systems - Review of Systems General: Reports: Chills. Denies: Fever, Fatigue, Night Sweats Cardiovascular: Denies: Chest Discomfort, Shortness of Breath, Orthopnea, PND, Peripheral Edema, Palpitations, Lightheadedness, Dizziness, Near Syncope, Syncope Respiratory: Denies: Cough, Sputum Production, Hemoptysis Gastrointestinal: Denies: Hematemesis, Hematochezia, Melena Genitourinary: Denies: Dysuria, Hematuria Skin: Denies: Rash Subjectve: Patient resting comfortably in bed, no acute distress. Objective: Vital Signs Temp Pulse Resp BP Pulse Ox 97.8 F 52 L 16 144/74 H 97 06/01/18 03:35 06/01/18 06:46 06/01/18 03:35 06/01/18 03:35 06/01/18 03:35 Oxygen Delivery Method Room Air Weight: 203 lb 11.314 oz Body Mass Index (BMI) 27.6 Intake and Output for Last 24 Hours 05/30/18 05/31/18 06/01/18 23:59 23:59 23:59 Output Total 800 / 800 Balance -800 / -800 General: Awake, Alert, Oriented x 3 HEENT: PERRL, EOMI, Sclera Non Icteric Neck: Supple, Good ROM, No Lymph Node Enlargement Lungs: Clear to auscultation Cardiovascular: Regular Rhythm, Normal S1, Normal S2, No Murmurs, No Rubs, No Gallops Vascular: No Carotid Bruits, Normal Femoral Pulses, Normal Radial Pulses, Normal Dorsalis Pedal Pulse, Normal Posterior Tibial Pulses Abdomen: Bowel Sounds Present, Soft, Non Tender, No HSM, No Organomegaly Extremities: No Cyanosis, No Clubbing, No edema Neurological: No Focal Motor or Sensory Deficit 05/31/18 16:22: WBC 4.6, RBC 3.71 L, Hgb 11.4 L, Hct 35.1 L, MCV 94.6 H, MCH 30.7, MCHC 32.5, RDW 17.1 H, RDW Differential 55.9 H, Plt Count 103 L, MPV 12.3 H, Immature Gran % (Auto) 0.200, Neut % (Auto) 68.2, Lymph % (Auto) 13.6 L, [place] % (Auto) 10.2 H, Eos % (Auto) 7.6 H, Baso % (Auto) 0.2, Absolute Neuts (auto) 3.2, Total Counted Not Reportable 05/31/18 16:22: Lactic Acid 1.0 06/01/18 09:10: WBC 5.5, RBC 3.99 L, Hgb 12.4 L, Hct 37.3 L, MCV 93.5, MCH 31.1, MCHC 33.2, RDW 16.7 H, RDW Differential 55.0 H, Plt Count 96 L, MPV 11.6 Rhythm: EKG: Sinus bradycardia right bundle branch block, left anterior hemiblock. ECHO: Normal LV size and function with an EF of 65%, normal RVSP. Stress Test: Appropriate chronotropic response to dobutamine, no ischemia noted. Final result pending. Cardiac Cath: PCI: CT Surgery: Holter monitor: EPS: PPM: CXR: Chest CT Scan: Assessment/Plan #1. Sinus bradycardia: The patient has evidence of sinus bradycardia superimposed upon hypothyroidism most likely a result of chronic amiodarone therapy. However the patient also has a history of paroxysmal atrial fibrillation and appears to do better in sinus rhythm. I recommend continuing amiodarone 100 mg p.o. daily, and increasing his Synthroid from 25-50 mcg p.o. daily. The patient's dobutamine echocardiogram demonstrates that his heart has the ability to increase heart rate should be necessary. Hopefully with corrective measures of his Synthroid, which may take several weeks, his heart rate will improve. I do not believe the patient requires a pacemaker at this time. His LV function is normal, and his pulmonary pressures are normal as well. He has had no chest pain symptoms and his troponins have been negative. I do not believe the patient requires catheterization at this time. His stress test showed no evidence of ischemia. Would recommend rechecking his TSH and 2-3 weeks time and if still elevated would not recommend increasing his Synthroid 75 mcg p.o. daily. In addition we will check a resting cortisol level. If this is markedly low, he may require a cosyntropin stim test or steroid replacement therapy to assist with his hypothermia. 2. Thank you very much for the opportunity to participate in the cardiac care of your patient. Consultation time took place between 9 AM and 9:35 AM. All questions answered of the patient and his . Code Visit Inpatient E&M: 22256 In Hosp L2
[2018-06-01 09:48] LABS: Anion Gap 8 (5-15); BUN 15 mg/dL (7-18); BUN/Creat Ratio 14.9 RATIO (10-20); Calcium,Total 8.7 mg/dL (8.5-10.1); Chloride 103 mmol/L (98-107); Creatinine, Serum 1.01 mg/dL (0.70-1.30); EST Glomerular Filtration Rate 75 mL/min (>60); Est Glom Filt Rate - Afr Amer 91 mL/min (>60); Estimated Creatinine Clearance 60.83 ml/min; Glucose 92 mg/dL (74-106); Potassium 4.3 mmol/L (3.5-5.1); Sodium Level 140 mmol/L (136-145)
[2018-06-01] MEDS: Galantamine Hydrobromide 4 MG Tablet 12 MG PO ×2 (10:46→22:27)
[2018-06-01] MEDS: Ciprofloxacin 500 MG Tablet PO ×2 (10:46→22:26)
[2018-06-01] MEDS: Enoxaparin 40 MG/0.4 ML Syringe SC (10:46)
[2018-06-01] MEDS: Carbidopa/Levodopa 25/100 Tablet PO ×3 (10:46→18:36)
[2018-06-01] MEDS: Amiodarone 200 MG Tablet 100 MG PO (10:46)
[2018-06-01] MEDS: Memantine Hydrochloride 10 MG Tablet PO ×2 (10:46→22:26)
--- NOTE | 2018-06-01 11:20 | PCM.PN.HOSP ---
Patient Problems: Active and Suspected Problems (Last Reviewed 02/13/18 @ 12:52 by Juni Acuna MD) Hypothermia (Acute) Subjective: Patient was discharged on 05/30/2018 after prolonged admission including ICU and floor following septic shock secondary to healthcare acid pneumonia and complicated UTI, acute kidney injury and bradycardia along with hyponatremia and hyperkalemia Vitals/I&O's: Vital Signs Temp Pulse Resp BP Pulse Ox 97.4 F L 55 L 16 132/71 H 95 06/01/18 09:35 06/01/18 09:35 06/01/18 09:35 06/01/18 09:35 06/01/18 09:35 Oxygen Delivery Method Room Air Weight: 203 lb 11.314 oz Body Mass Index (BMI) 27.6 Intake and Output for Last 24 Hours 05/30/18 05/31/18 06/01/18 23:59 23:59 23:59 Output Total 800 / 800 Balance -800 / -800 General: Alert, Oriented x3, Cooperative HEENT: Atraumatic, PERRLA, EOMI, Normocephalic Neck: Supple, No JVD, Negative Carotid Bruits Lungs: Clear to auscultation, No rhonchi, No wheeze, Diminished Cardiovascular: Normal S1, Normal S2, Bradycardic, Irregular Rate Abdomen: Bowel Sounds Present, Soft, Non Tender Extremities: No edema, Capillary Refill Less than 3 Seconds Skin: No rashes, No breakdown Musculoskeletal: No Tenderness to Palpation of Joints or Extremities Neurological: Cranial nerves II-XII grossly intact Psych/Mental Status: Normal Affect, Appropriate Laboratory Results 05/31/18 16:22: WBC 4.6, RBC 3.71 L, Hgb 11.4 L, Hct 35.1 L, MCV 94.6 H, MCH 30.7, MCHC 32.5, RDW 17.1 H, RDW Differential 55.9 H, Plt Count 103 L, MPV 12.3 H, Immature Gran % (Auto) 0.200, Neut % (Auto) 68.2, Lymph % (Auto) 13.6 L, [place] % (Auto) 10.2 H, Eos % (Auto) 7.6 H, Baso % (Auto) 0.2, Absolute Neuts (auto) 3.2, Absolute Lymphs (auto) 0.63 L, Total Counted Not Reportable 05/31/18 16:22: Lactic Acid 1.0 06/01/18 09:10: Sodium 140, Potassium 4.3, Chloride 103, Carbon Dioxide 29.0, Anion Gap 8, BUN 15, Creatinine 1.01, Estim Creat Clear Calc 60.83, Est GFR (MDRD) Af Amer 91, Est GFR (MDRD) Non-Af 75, BUN/Creatinine Ratio 14.9, Glucose 92, Calcium 8.7 06/01/18 09:10: WBC 5.5, RBC 3.99 L, Hgb 12.4 L, Hct 37.3 L, MCV 93.5, MCH 31.1, MCHC 33.2, RDW 16.7 H, RDW Differential 55.0 H, Plt Count 96 L, MPV 11.6 06/01/18 09:10: PT 13.5, INR 1.0, APTT 32.3 06/01/18 10:20: Cortisol Pending Current Medications Albuterol/Ipratropium (Duoneb) 3 ml INHALATION Q6H PRN PRN PRN Reason: SOB &/OR WHEEZING Amiodarone HCl (Cordarone) 100 mg PO DAILY [facility] Last Admin: 06/01/18 10:46 Dose: 100 mg Aspirin (Ecotrin) 81 mg PO DAILY [facility] Last Admin: 06/01/18 06:50 Dose: 81 mg Carbidopa/Levodopa (Sinemet) 1 tablet PO TIDAC [facility] Last Admin: 06/01/18 10:46 Dose: 1 tablet Ciprofloxacin HCl (Cipro) 500 mg PO BID [facility] Stop: 06/05/18 22:01 Last Admin: 06/01/18 10:46 Dose: 500 mg Enoxaparin Sodium (Lovenox) 40 mg SC DAILY@1000 [facility] Last Admin: 06/01/18 10:46 Dose: 40 mg Galantamine Hydrobromide (Razadyne) 12 mg PO BID [facility] Last Admin: 06/01/18 10:46 Dose: 12 mg Levothyroxine Sodium (Levothyroxine Sodium) 50 mcg IV DAILY@1800 [facility] Last Admin: 05/31/18 17:19 Dose: 50 mcg Magnesium Hydroxide (Milk Of Magnesia) 30 ml PO DAILY PRN PRN Reason: Constipation Melatonin (Melatonin) 3 mg PO QHS [facility] Last Admin: 05/31/18 21:41 Dose: 3 mg Memantine (Namenda) 10 mg PO BID [facility] Last Admin: 06/01/18 10:46 Dose: 10 mg Polyethylene Glycol (Miralax) 17 gm PO DAILY [facility] Last Admin: 06/01/18 10:47 Dose: Not Given Sodium Chloride () 5 - 30 ml IV UD PRN PRN Reason: SALINE FLUSH Medical Necessity - Tobacco Use Smoking Status: Former smoker Assessment/Plan All Active Problems (Last Reviewed 02/13/18 @ 12:52 by Juni Acuna MD) Septic shock (Acute) HCAP (healthcare-associated pneumonia) (Acute) UTI (urinary tract infection) (Acute) ALYSSA (acute kidney injury) (Acute) Hyperkalemia (Acute) Lactic acidosis (Acute) Hypothyroidism (Acute) Bradycardia (Acute) Hypothermia (Acute) Failure to thrive (Acute) Hypomagnesemia (Resolved) Atherosclerosis of coronary artery of [place] heart without angina pectoris (Ruled-out) The patient is a 82 year old M from [facility] with a h/o paroxysmal a-fib, parkinsons, dementia and hypertension with recent discharged on 05/30/2018 after prolonged admission including ICU and floor following septic shock secondary to healthcare acid pneumonia and complicated UTI, acute kidney injury and bradycardia along with hyponatremia and hyperkalemia was admitted for significant bradycardia and hypothermia. Patient was also confused, stuporous and incoherent.In the ER his TSH was increased to 8.64 from 6.6 on 05/26. Also he was sinus saravanan with a normal troponin. 1. Sinus bradycardia most probably secondary to prolonged amiodarone therapy superimposed on hypothyroidism associated with hypothermia: Because of hypothermia and increased TSH, patient was started on IV synthroid 50 mcg for 2 days then switch to oral, check free T4. Snailer Dr. Eng consulted. A stress echo was done and negative for acute ischemia. He does not think patient requires pacemaker now. -Patient was on warming blankets and bear-hugger 2. Paroxysmal A. fib, hypertension and hypothyroidism: Currently patient is in sinus rhythm. He is recommended to continue low-dose amiodarone 100 mg daily. 3. Parkinson's disease: Continue Sinemet. 4. Other comorbidities include dementia probably from Parkinson disease or senile dementia: Continue galantamine and memantine 4. Insomnia Trazodone as needed for insomnia. 5. And history of septic shock secondary to Klebsiella pneumoniae UTI and healthcare associated pneumonia for which required ICU - Cipro - cx on .2 grew K. pneumo sensitive to cipro - last dose should probably be 06/03 DVT: Lovenox Multiple comorbidities complicates the present care and expect difficult and delay recovery Code Visit Inpatient E&M: 95464 Subs Hosp L3
--- NOTE | 2018-06-01 14:37 | CASEMGMT ---
Patient is from [facility]. His plan is to return there. His will transport. Green sheet on chart. Plan: Return to [facility] under intermediate level of care Gisell HUNTER MSW
[2018-06-01] MEDS: Levothyroxine 50 MCG Tablet PO (18:36)
[2018-06-01] MEDS: MELATONIN 3 MG TABLET PO (22:27)
[2018-06-02] VITALS (11 sets, daily range): BP systolic 119–152; BP diastolic 62–80; PULSE 42–56; RESP 16–18; TEMP 36.3–36.8; O2SAT 91–99
[2018-06-02] MEDS: Carbidopa/Levodopa 25/100 Tablet PO ×3 (06:19→17:13)
[2018-06-02] MEDS: Levothyroxine 50 MCG Tablet PO (06:19)
[2018-06-02 08:21] LABS: Eosinophil# 0.41 X10^3/uL; Hematocrit 38.5 % (40-54); Hemoglobin 12.5 g/dl (13.0-16.5); Lymphocyte % 13.1 % (19-41); Mean Corp Hgb Conc 32.5 g/gl (32-36); Mean Corpuscular Hgb 30.6 pg (27.0-32.0); Mean Corpuscular Volume 94.1 fL (80-94); Monocyte# 0.59 X10^3/uL; Monocyte% 8.6 % (0-10); Neutrophil # 4.96 X10^3/uL (2.7-7.7); Neutrophil % 72.2 % (47-70); RBC Distribution Width CV 16.9 % (11.6-14.6); RBC Distribution Width SD 57.7 fl (35.1-43.9); Red Blood Count 4.09 M/mm3 (4.6-6.2); White Blood Count 6.9 K/mm3 (4.4-11.0)
[2018-06-02 08:22] LABS: POSITIVE COUNT NO; POSITIVE DIFFERENTIAL NO; POSITIVE MORPHOLOGY NO; Platelet Count 99 K/mm3 (150-450)
--- NOTE | 2018-06-02 08:26 | PCM.PN.HOSP ---
Patient Problems: Active and Suspected Problems (Last Reviewed 02/13/18 @ 12:52 by Juni Acuna MD) Hypothermia (Acute) Subjective: The patient is sitting upright in the chair. He has advanced dementia and is not able to tell but overall he is feeling good.] cafeteria monitor sinus bradycardia in 50s. During 3-4 mm with drop in 40s. A lot of artifacts on playground monitor. Few PVCs. Vitals/I&O's: Vital Signs Temp Pulse Resp BP Pulse Ox 97.4 F L 49 L 16 119/62 91 06/02/18 04:40 06/02/18 06:43 06/02/18 04:40 06/02/18 04:40 06/02/18 07:50 Oxygen Delivery Method Room Air Weight: 203 lb 11.314 oz Body Mass Index (BMI) 27.6 Intake and Output for Last 24 Hours 05/31/18 06/01/18 06/02/18 23:59 23:59 23:59 Intake Total 1070 / 1070 0 / 0 Output Total 800 / 800 300 / 300 Balance -800 / -800 770 / 770 0 / 0 General: Alert, Cooperative, Disoriented HEENT: Atraumatic, PERRLA, EOMI, Normocephalic Oral: Dry Mucosa Neck: Supple, No JVD, Negative Carotid Bruits Lungs: Clear to auscultation, Normal air movement Cardiovascular: Regular rate, Normal S1, Normal S2, No murmurs, Bradycardic, - Abdomen: Bowel Sounds Present, Soft, Non Tender, Non-Distended - PVCs, - - Urinary incontinent Extremities: Capillary Refill Less than 3 Seconds, Edema, Peripheral Pulses Normal, - Skin: No rashes, No breakdown Musculoskeletal: No Tenderness to Palpation of Joints or Extremities, Arthritic Changes, Muscle Wasting Neurological: Cranial nerves II-XII grossly intact Psych/Mental Status: Normal Affect, Appropriate Laboratory Results 06/01/18 09:10: Sodium 140, Potassium 4.3, Chloride 103, Carbon Dioxide 29.0, Anion Gap 8, BUN 15, Creatinine 1.01, Estim Creat Clear Calc 60.83, Est GFR (MDRD) Af Amer 91, Est GFR (MDRD) Non-Af 75, BUN/Creatinine Ratio 14.9, Glucose 92, Calcium 8.7 06/01/18 09:10: WBC 5.5, RBC 3.99 L, Hgb 12.4 L, Hct 37.3 L, MCV 93.5, MCH 31.1, MCHC 33.2, RDW 16.7 H, RDW Differential 55.0 H, Plt Count 96 L, MPV 11.6 06/01/18 09:10: PT 13.5, INR 1.0, APTT 32.3 06/01/18 10:20: Cortisol Pending 06/02/18 05:05: Free T4 1.50 H 06/02/18 07:50: WBC 6.9, RBC 4.09 L, Hgb 12.5 L, Hct 38.5 L, MCV 94.1 H, MCH 30.6, MCHC 32.5, RDW 16.9 H, RDW Differential 57.7 H, Plt Count 99 L, Immature Gran % (Auto) 0.100, Neut % (Auto) 72.2 H, Lymph % (Auto) 13.1 L, [place] % (Auto) 8.6, Eos % (Auto) 6.0 H, Baso % (Auto) 0.0, Absolute Neuts (auto) 5.0, Absolute Lymphs (auto) 0.90, Total Counted Not Reportable 06/02/18 07:50: Sodium Pending, Potassium Pending, Chloride Pending, Carbon Dioxide Pending, Anion Gap Pending, BUN Pending, Creatinine Pending, Est GFR (MDRD) Af Amer Pending, Est GFR (MDRD) Non-Af Pending, BUN/Creatinine Ratio Pending, Glucose Pending, Calcium Pending, Magnesium Pending, TSH Pending Current Medications Albuterol/Ipratropium (Duoneb) 3 ml INHALATION Q6H PRN PRN PRN Reason: SOB &/OR WHEEZING Amiodarone HCl (Cordarone) 100 mg PO DAILY [facility] Last Admin: 06/01/18 10:46 Dose: 100 mg Aspirin (Ecotrin) 81 mg PO DAILY [facility] Last Admin: 06/01/18 06:50 Dose: 81 mg Carbidopa/Levodopa (Sinemet) 1 tablet PO TIDAC [facility] Last Admin: 06/02/18 06:19 Dose: 1 tablet Ciprofloxacin HCl (Cipro) 500 mg PO BID [facility] Stop: 06/05/18 22:01 Last Admin: 06/01/18 22:26 Dose: 500 mg Enoxaparin Sodium (Lovenox) 40 mg SC DAILY@1000 [facility] Last Admin: 06/01/18 10:46 Dose: 40 mg Galantamine Hydrobromide (Razadyne) 12 mg PO BID [facility] Last Admin: 06/01/18 22:27 Dose: 12 mg Levothyroxine Sodium (Synthroid) 50 mcg PO DAILY@0600 [facility] Last Admin: 06/02/18 06:19 Dose: 50 mcg Magnesium Hydroxide (Milk Of Magnesia) 30 ml PO DAILY PRN PRN Reason: Constipation Melatonin (Melatonin) 3 mg PO QHS [facility] Last Admin: 06/01/18 22:27 Dose: 3 mg Memantine (Namenda) 10 mg PO BID [facility] Last Admin: 06/01/18 22:26 Dose: 10 mg Nutritional Formula (Lactose Free) (Ensure Enlive) 120 ml PO 4X/DAY [facility] Last Admin: 06/01/18 22:35 Dose: 120 ml Polyethylene Glycol (Miralax) 17 gm PO DAILY [facility] Last Admin: 06/01/18 10:47 Dose: Not Given Sodium Chloride () 5 - 30 ml IV UD PRN PRN Reason: SALINE FLUSH Medical Necessity - Tobacco Use Smoking Status: Former smoker Assessment/Plan All Active Problems (Last Reviewed 02/13/18 @ 12:52 by Juni Acuna MD) Septic shock (Acute) HCAP (healthcare-associated pneumonia) (Acute) UTI (urinary tract infection) (Acute) ALYSSA (acute kidney injury) (Acute) Hyperkalemia (Acute) Lactic acidosis (Acute) Hypothyroidism (Acute) Bradycardia (Acute) Hypothermia (Acute) Failure to thrive (Acute) Hypomagnesemia (Resolved) Atherosclerosis of coronary artery of [place] heart without angina pectoris (Ruled-out) The patient is a 82 year old M from [facility] with a h/o paroxysmal a-fib, parkinsons, dementia and hypertension with recent discharged on 05/30/2018 after prolonged admission including ICU and floor following septic shock secondary to healthcare acid pneumonia and complicated UTI, acute kidney injury and bradycardia along with hyponatremia and hyperkalemia was admitted for significant bradycardia and hypothermia. Patient was also confused, stuporous and incoherent.In the ER his TSH was increased to 8.64 from 6.6 on 05/26. Also he was sinus saravanan with a normal troponin. 1. Sinus bradycardia most probably secondary to prolonged amiodarone therapy superimposed on hypothyroidism associated with hypothermia: Because of hypothermia and increased TSH, patient was started on IV synthroid 50 mcg AND switch to oral. [employer] Professor Dr. Eng consulted. A stress echo was done and negative for acute ischemia. He does not think patient requires pacemaker now. -Patient was on warming blankets and bear-hugger Currently, normothermic. 2. Mild hypothermia and sinus bradycardia secondary to mild hypothyroidism: Patient TSH was 8.64 on May 31, at 12 noon, on 06/02 it is 7.82 in morning it was 6.67 on May 26 on last admission. Free T4 was normal 1.17 on 05/27/2018 on last admission, today on 06/02 it is 1.5. I think patient has mild hypothyroidism and falls free T4 elevated after he was given thyroxine IV yesterday. Continue Synthroid 50 mcg daily. Repeat thyroid function test after 3 months as an outpatient Paroxysmal A. fib, hypertension and hypothyroidism: Currently patient is in sinus rhythm. He is recommended to continue low-dose amiodarone 100 mg daily. 3. Parkinson's disease: Continue Sinemet. 4. Other comorbidities include dementia probably from Parkinson disease or senile dementia: Continue galantamine and memantine 4. Insomnia Trazodone as needed for insomnia. 5. Recent history of septic shock secondary to Klebsiella pneumoniae UTI and healthcare associated pneumonia for which required ICU - Cipro - cx on .2 grew K. pneumo sensitive to cipro - last dose should probably be 06/03 Low functional capacity with urinary incontinence, dementia:Multiple comorbidities complicates the present care and expect difficult and delay recovery DVT: Lovenox Patient is DNR CC arrest and was discussed during last admission L Laboratory Results 06/01/18 09:10: Sodium 140, Potassium 4.3, Chloride 103, Carbon Dioxide 29.0, Anion Gap 8, BUN 15, Creatinine 1.01, Estim Creat Clear Calc 60.83, Est GFR (MDRD) Af Amer 91, Est GFR (MDRD) Non-Af 75, BUN/Creatinine Ratio 14.9, Glucose 92, Calcium 8.7 06/01/18 09:10: WBC 5.5, RBC 3.99 L, Hgb 12.4 L, Hct 37.3 L, MCV 93.5, MCH 31.1, MCHC 33.2, RDW 16.7 H, RDW Differential 55.0 H, Plt Count 96 L, MPV 11.6 06/01/18 09:10: PT 13.5, INR 1.0, APTT 32.3 06/01/18 10:20: Cortisol Pending 06/02/18 05:05: Free T4 1.50 H 06/02/18 07:50: WBC 6.9, RBC 4.09 L, Hgb 12.5 L, Hct 38.5 L, MCV 94.1 H, MCH 30.6, MCHC 32.5, RDW 16.9 H, RDW Differential 57.7 H, Plt Count 99 L, Immature Gran % (Auto) 0.100, Neut % (Auto) 72.2 H, Lymph % (Auto) 13.1 L, [place] % (Auto) 8.6, Eos % (Auto) 6.0 H, Baso % (Auto) 0.0, Absolute Neuts (auto) 5.0, Absolute Lymphs (auto) 0.90, Total Counted Not Reportable 06/02/18 07:50: Sodium 138, Potassium 4.3, Chloride 101, Carbon Dioxide 30.0, Anion Gap 7, BUN 21 H, Creatinine 1.26, Estim Creat Clear Calc 48.76, Est GFR (MDRD) Af Amer 70, Est GFR (MDRD) Non-Af 58 L, BUN/Creatinine Ratio 16.7, Glucose 99, Calcium 8.9, Magnesium 2.0, TSH 7.82 H Code Visit Inpatient E&M: 85241 Subs Hosp L3
--- NOTE | 2018-06-02 08:36 | PCM.PN.HOSP ---
Patient Problems: Active and Suspected Problems (Last Reviewed 02/13/18 @ 12:52 by Juni Acuna MD) Hypothermia (Acute) Vitals/I&O's: Vital Signs Temp Pulse Resp BP Pulse Ox 97.4 F L 49 L 16 119/62 91 06/02/18 04:40 06/02/18 06:43 06/02/18 04:40 06/02/18 04:40 06/02/18 07:50 Oxygen Delivery Method Room Air Weight: 203 lb 11.314 oz Body Mass Index (BMI) 27.6 Intake and Output for Last 24 Hours 05/31/18 06/01/18 06/02/18 23:59 23:59 23:59 Intake Total 1070 / 1070 0 / 0 Output Total 800 / 800 300 / 300 Balance -800 / -800 770 / 770 0 / 0 Laboratory Results 06/01/18 09:10: Sodium 140, Potassium 4.3, Chloride 103, Carbon Dioxide 29.0, Anion Gap 8, BUN 15, Creatinine 1.01, Estim Creat Clear Calc 60.83, Est GFR (MDRD) Af Amer 91, Est GFR (MDRD) Non-Af 75, BUN/Creatinine Ratio 14.9, Glucose 92, Calcium 8.7 06/01/18 09:10: WBC 5.5, RBC 3.99 L, Hgb 12.4 L, Hct 37.3 L, MCV 93.5, MCH 31.1, MCHC 33.2, RDW 16.7 H, RDW Differential 55.0 H, Plt Count 96 L, MPV 11.6 06/01/18 09:10: PT 13.5, INR 1.0, APTT 32.3 06/01/18 10:20: Cortisol Pending 06/02/18 05:05: Free T4 1.50 H 06/02/18 07:50: WBC 6.9, RBC 4.09 L, Hgb 12.5 L, Hct 38.5 L, MCV 94.1 H, MCH 30.6, MCHC 32.5, RDW 16.9 H, RDW Differential 57.7 H, Plt Count 99 L, Immature Gran % (Auto) 0.100, Neut % (Auto) 72.2 H, Lymph % (Auto) 13.1 L, [place] % (Auto) 8.6, Eos % (Auto) 6.0 H, Baso % (Auto) 0.0, Absolute Neuts (auto) 5.0, Absolute Lymphs (auto) 0.90, Total Counted Not Reportable 06/02/18 07:50: Sodium Pending, Potassium Pending, Chloride Pending, Carbon Dioxide Pending, Anion Gap Pending, BUN Pending, Creatinine Pending, Est GFR (MDRD) Af Amer Pending, Est GFR (MDRD) Non-Af Pending, BUN/Creatinine Ratio Pending, Glucose Pending, Calcium Pending, Magnesium Pending, TSH Pending Current Medications Albuterol/Ipratropium (Duoneb) 3 ml INHALATION Q6H PRN PRN PRN Reason: SOB &/OR WHEEZING Amiodarone HCl (Cordarone) 100 mg PO DAILY [facility] Last Admin: 06/01/18 10:46 Dose: 100 mg Aspirin (Ecotrin) 81 mg PO DAILY [facility] Last Admin: 06/01/18 06:50 Dose: 81 mg Carbidopa/Levodopa (Sinemet) 1 tablet PO TIDAC [facility] Last Admin: 06/02/18 06:19 Dose: 1 tablet Ciprofloxacin HCl (Cipro) 500 mg PO BID [facility] Stop: 06/05/18 22:01 Last Admin: 06/01/18 22:26 Dose: 500 mg Enoxaparin Sodium (Lovenox) 40 mg SC DAILY@1000 [facility] Last Admin: 06/01/18 10:46 Dose: 40 mg Galantamine Hydrobromide (Razadyne) 12 mg PO BID [facility] Last Admin: 06/01/18 22:27 Dose: 12 mg Levothyroxine Sodium (Synthroid) 50 mcg PO DAILY@0600 [facility] Last Admin: 06/02/18 06:19 Dose: 50 mcg Magnesium Hydroxide (Milk Of Magnesia) 30 ml PO DAILY PRN PRN Reason: Constipation Melatonin (Melatonin) 3 mg PO QHS [facility] Last Admin: 06/01/18 22:27 Dose: 3 mg Memantine (Namenda) 10 mg PO BID [facility] Last Admin: 06/01/18 22:26 Dose: 10 mg Nutritional Formula (Lactose Free) (Ensure Enlive) 120 ml PO 4X/DAY [facility] Last Admin: 06/01/18 22:35 Dose: 120 ml Polyethylene Glycol (Miralax) 17 gm PO DAILY [facility] Last Admin: 06/01/18 10:47 Dose: Not Given Sodium Chloride () 5 - 30 ml IV UD PRN PRN Reason: SALINE FLUSH Medical Necessity - Tobacco Use Smoking Status: Former smoker Assessment/Plan All Active Problems (Last Reviewed 02/13/18 @ 12:52 by Juni Acuna MD) Septic shock (Acute) HCAP (healthcare-associated pneumonia) (Acute) UTI (urinary tract infection) (Acute) ALYSSA (acute kidney injury) (Acute) Hyperkalemia (Acute) Lactic acidosis (Acute) Hypothyroidism (Acute) Bradycardia (Acute) Hypothermia (Acute) Failure to thrive (Acute) Hypomagnesemia (Resolved) Atherosclerosis of coronary artery of [place] heart without angina pectoris (Ruled-out)
--- NOTE | 2018-06-02 08:37 | PN_ITS ---
Patient Problems: Active and Suspected Problems (Last Reviewed 02/13/18 @ 12:52 by Juni Acuna MD ) Hypothermia (Acute) Subjective: The patient is sitting upright in the chair. 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 During 3-4 mm with drop in 40s. A lot of artifacts on school lunch monitor. Few PVCs. Vitals/I&O's: Vital Signs Temp Pulse Resp BP Pulse Ox 97.4 F L 49 L 16 119/62 91 06/02/18 04:40 06/02/18 06:43 06/02/18 04:40 06/02/18 04:40 06/02/18 07:50 Oxygen Delivery Method Room Air Weight: 203 lb 11.314 oz Body Mass Index (BMI) 27.6 Intake and Output for Last 24 Hours 05/31/18 06/01/18 06/02/18 23:59 23:59 23:59 Intake Total 1070 / 1070 0 / 0 Output Total 800 / 800 300 / 300 Balance -800 / -800 770 / 770 0 / 0 General: Alert, Cooperative, Disoriented HEENT: Atraumatic, PERRLA, EOMI, Normocephalic Oral: Dry Mucosa Neck: Supple, No JVD, Negative Carotid Bruits Lungs: Clear to auscultation, Normal air movement Cardiovascular: Regular rate, Normal S1, Normal S2, No murmurs, Bradycardic, - Abdomen: Bowel Sounds Present, Soft, Non Tender, Non-Distended - PVCs, - - Urinary incontinent Extremities: Capillary Refill Less than 3 Seconds, Edema, Peripheral Pulses Normal, - Skin: No rashes, No breakdown Musculoskeletal: No Tenderness to Palpation of Joints or Extremities, Arthritic Changes, Muscle Wasting Neurological: Cranial nerves II-XII grossly intact Psych/Mental Status: Normal Affect, Appropriate Laboratory Results 06/01/18 09:10: Sodium 140, Potassium 4.3, Chloride 103, Carbon Dioxide 29.0, Anion Gap 8, BUN 15, Creatinine 1.01, Estim Creat Clear Calc 60.83, Est GFR ( MDRD) Af Amer 91, Est GFR (MDRD) Non-Af 75, BUN/Creatinine Ratio 14.9, Glucose 92, Calcium 8.7 06/01/18 09:10: WBC 5.5, RBC 3.99 L, Hgb 12.4 L, Hct 37.3 L, MCV 93.5, MCH 31.1 , MCHC 33.2, RDW 16.7 H, RDW Differential 55.0 H, Plt Count 96 L, MPV 11.6 06/01/18 09:10: PT 13.5, INR 1.0, APTT 32.3 06/01/18 10:20: Cortisol Pending 06/02/18 05:05: Free T4 1.50 H 06/02/18 07:50: WBC 6.9, RBC 4.09 L, Hgb 12.5 L, Hct 38.5 L, MCV 94.1 H, MCH 30.6, MCHC 32.5, RDW 16.9 H, RDW Differential 57.7 H, Plt Count 99 L, Immature Gran % (Auto) 0.100, Neut % (Auto) 72.2 H, Lymph % (Auto) 13.1 L, [place] % (Auto) 8.6, Eos % (Auto) 6.0 H, Baso % (Auto) 0.0, Absolute Neuts (auto) 5.0, Absolute Lymphs (auto) 0.90, Total Counted Not Reportable 06/02/18 07:50: Sodium Pending, Potassium Pending, Chloride Pending, Carbon Dioxide Pending, Anion Gap Pending, BUN Pending, Creatinine Pending, Est GFR ( MDRD) Af Amer Pending, Est GFR (MDRD) Non-Af Pending, BUN/Creatinine Ratio Pending, Glucose Pending, Calcium Pending, Magnesium Pending, TSH Pending Current Medications Albuterol/Ipratropium (Duoneb) 3 ml INHALATION Q6H PRN PRN PRN Reason: SOB &/OR WHEEZING Amiodarone HCl (Cordarone) 100 mg PO DAILY [facility] Last Admin: 06/01/18 10:46 Dose: 100 mg Aspirin (Ecotrin) 81 mg PO DAILY [facility] Last Admin: 06/01/18 06:50 Dose: 81 mg Carbidopa/Levodopa (Sinemet) 1 tablet PO TIDAC [facility] Last Admin: 06/02/18 06:19 Dose: 1 tablet Ciprofloxacin HCl (Cipro) 500 mg PO BID [facility] Stop: 06/05/18 22:01 Last Admin: 06/01/18 22:26 Dose: 500 mg Enoxaparin Sodium (Lovenox) 40 mg SC DAILY@1000 [facility] Last Admin: 06/01/18 10:46 Dose: 40 mg Galantamine Hydrobromide (Razadyne) 12 mg PO BID [facility] Last Admin: 06/01/18 22:27 Dose: 12 mg Levothyroxine Sodium (Synthroid) 50 mcg PO DAILY@0600 [facility] Last Admin: 06/02/18 06:19 Dose: 50 mcg Magnesium Hydroxide (Milk Of Magnesia) 30 ml PO DAILY PRN PRN Reason: Constipation Melatonin (Melatonin) 3 mg PO QHS [facility] Last Admin: 06/01/18 22:27 Dose: 3 mg Memantine (Namenda) 10 mg PO BID [facility] Last Admin: 06/01/18 22:26 Dose: 10 mg Nutritional Formula (Lactose Free) (Ensure Enlive) 120 ml PO 4X/DAY [facility] Last Admin: 06/01/18 22:35 Dose: 120 ml Polyethylene Glycol (Miralax) 17 gm PO DAILY [facility] Last Admin: 06/01/18 10:47 Dose: Not Given Sodium Chloride () 5 - 30 ml IV UD PRN PRN Reason: SALINE FLUSH Medical Necessity - Tobacco Use Smoking Status: Former smoker Assessment/Plan All Active Problems (Last Reviewed 02/13/18 @ 12:52 by Juni Acuna MD) Septic shock (Acute) HCAP (healthcare-associated pneumonia) (Acute) UTI (urinary tract infection) (Acute) ALYSSA (acute kidney injury) (Acute) Hyperkalemia (Acute) Lactic acidosis (Acute) Hypothyroidism (Acute) Bradycardia (Acute) Hypothermia (Acute) Failure to thrive (Acute) Hypomagnesemia (Resolved) Atherosclerosis of coronary artery of [place] heart without angina pectoris ( Ruled-out) The patient is a 82 year old M from a senior care with a h/o paroxysmal a-fib, parkinsons, dementia and hypertension with recent discharged on 05/30/2018 after prolonged admission including ICU and floor following septic shock secondary to healthcare acid pneumonia and complicated UTI, acute kidney injury and bradycardia along with hyponatremia and hyperkalemia was admitted for significant bradycardia and hypothermia. Patient was also confused, stuporous and incoherent.In the ER his TSH was increased to 8.64 from 6.6 on 05/26. Also he was sinus saravanan with a normal troponin. 1. Sinus bradycardia most probably secondary to prolonged amiodarone therapy superimposed on hypothyroidism associated with hypothermia: Because of hypothermia and increased TSH, patient was started on IV synthroid 50 mcg AND switch to oral. Recovery Room Rn Dr. Eng consulted. A stress echo was done and negative for acute ischemia. He does not think patient requires pacemaker now. -Patient was on warming blankets and bear-hugger Currently, normothermic. 2. Mild hypothermia and sinus bradycardia secondary to mild hypothyroidism: Patient TSH was 8.64 on May 31, at 12 noon, on 06/02 it is 7.82 in morning it was 6.67 on May 26 on last admission. Free T4 was normal 1.17 on 05/27/2018 on last admission, today on 06/02 it is 1.5. I think patient has mild hypothyroidism and falls free T4 elevated after he was given thyroxine IV yesterday. Continue Synthroid 50 mcg daily. Repeat thyroid function test after 3 months as an outpatient Paroxysmal A. fib, hypertension and hypothyroidism: Currently patient is in sinus rhythm. He is recommended to continue low-dose amiodarone 100 mg daily. 3. Parkinson's disease: Continue Sinemet. 4. Other comorbidities include dementia probably from Parkinson disease or senile dementia: Continue galantamine and memantine 4. Insomnia Trazodone as needed for insomnia. 5. Recent history of septic shock secondary to Klebsiella pneumoniae UTI and healthcare associated pneumonia for which required ICU - Cipro - cx on .2 grew K. pneumo sensitive to cipro - last dose should probably be 06/03 Low functional capacity with urinary incontinence, dementia:Multiple comorbidities complicates the present care and expect difficult and delay recovery DVT: Lovenox Patient is DNR CC arrest and was discussed during last admission L Laboratory Results 06/01/18 09:10: Sodium 140, Potassium 4.3, Chloride 103, Carbon Dioxide 29.0, Anion Gap 8, BUN 15, Creatinine 1.01, Estim Creat Clear Calc 60.83, Est GFR ( MDRD) Af Amer 91, Est GFR (MDRD) Non-Af 75, BUN/Creatinine Ratio 14.9, Glucose 92, Calcium 8.7 06/01/18 09:10: WBC 5.5, RBC 3.99 L, Hgb 12.4 L, Hct 37.3 L, MCV 93.5, MCH 31.1 , MCHC 33.2, RDW 16.7 H, RDW Differential 55.0 H, Plt Count 96 L, MPV 11.6 06/01/18 09:10: PT 13.5, INR 1.0, APTT 32.3 06/01/18 10:20: Cortisol Pending 06/02/18 05:05: Free T4 1.50 H 06/02/18 07:50: WBC 6.9, RBC 4.09 L, Hgb 12.5 L, Hct 38.5 L, MCV 94.1 H, MCH 30.6, MCHC 32.5, RDW 16.9 H, RDW Differential 57.7 H, Plt Count 99 L, Immature Gran % (Auto) 0.100, Neut % (Auto) 72.2 H, Lymph % (Auto) 13.1 L, [place] % (Auto) 8.6, Eos % (Auto) 6.0 H, Baso % (Auto) 0.0, Absolute Neuts (auto) 5.0, Absolute Lymphs (auto) 0.90, Total Counted Not Reportable 06/02/18 07:50: Sodium 138, Potassium 4.3, Chloride 101, Carbon Dioxide 30.0, Anion Gap 7, BUN 21 H, Creatinine 1.26, Estim Creat Clear Calc 48.76, Est GFR ( MDRD) Af Amer 70, Est GFR (MDRD) Non-Af 58 L, BUN/Creatinine Ratio 16.7, Glucose 99, Calcium 8.9, Magnesium 2.0, TSH 7.82 H Code Visit Inpatient E&M: 80521 Subs Hosp L3
[2018-06-02 08:38] LABS: Anion Gap 7 (5-15); BUN 21 mg/dL (7-18); BUN/Creat Ratio 16.7 RATIO (10-20); Calcium,Total 8.9 mg/dL (8.5-10.1); Chloride 101 mmol/L (98-107); Creatinine, Serum 1.26 mg/dL (0.70-1.30); EST Glomerular Filtration Rate 58 mL/min (>60); Est Glom Filt Rate - Afr Amer 70 mL/min (>60); Estimated Creatinine Clearance 48.76 ml/min; Glucose 99 mg/dL (74-106); Potassium 4.3 mmol/L (3.5-5.1); Sodium Level 138 mmol/L (136-145); Thyroid Stim Hormone (TSH) 7.82 uIU/mL (0.358-3.74)
[2018-06-02] MEDS: Memantine Hydrochloride 10 MG Tablet PO ×2 (10:08→21:22)
[2018-06-02] MEDS: Aspirin E.C. 81 MG Tablet PO (10:08)
[2018-06-02] MEDS: Ciprofloxacin 500 MG Tablet PO ×2 (10:08→21:22)
[2018-06-02] MEDS: Galantamine Hydrobromide 4 MG Tablet 12 MG PO ×2 (10:08→21:22)
[2018-06-02] MEDS: Amiodarone 200 MG Tablet 100 MG PO (10:08)
[2018-06-02] MEDS: Enoxaparin 40 MG/0.4 ML Syringe SC (10:08)
--- NOTE | 2018-06-02 10:53 | PCM.PN.CARD ---
Subjectve: Patient sitting in a chair, no acute distress. Telemetry shows sinus bradycardia. No presyncope, syncope, lightheadedness or dizziness. Objective: Vital Signs Temp Pulse Resp BP Pulse Ox 97.5 F L 49 L 16 122/71 H 97 06/02/18 09:55 06/02/18 09:55 06/02/18 09:55 06/02/18 09:55 06/02/18 09:55 Oxygen Delivery Method Room Air Weight: 203 lb 11.314 oz Body Mass Index (BMI) 27.6 Intake and Output for Last 24 Hours 05/31/18 06/01/18 06/02/18 23:59 23:59 23:59 Intake Total 1070 / 1070 0 / 0 Output Total 800 / 800 300 / 300 Balance -800 / -800 770 / 770 0 / 0 General: Awake, Alert, Oriented x 3 HEENT: PERRL, EOMI, Sclera Non Icteric Neck: Supple, Good ROM, No Lymph Node Enlargement Lungs: Clear to auscultation Cardiovascular: Regular Rhythm, Normal S1, Normal S2, No Murmurs, No Rubs, No Gallops Vascular: No Carotid Bruits, Normal Femoral Pulses, Normal Radial Pulses, Normal Dorsalis Pedal Pulse, Normal Posterior Tibial Pulses Abdomen: Bowel Sounds Present, Soft, Non Tender, No HSM, No Organomegaly Extremities: No Cyanosis, No Clubbing, No edema Neurological: No Focal Motor or Sensory Deficit 06/02/18 07:50: WBC 6.9, RBC 4.09 L, Hgb 12.5 L, Hct 38.5 L, MCV 94.1 H, MCH 30.6, MCHC 32.5, RDW 16.9 H, RDW Differential 57.7 H, Plt Count 99 L, Immature Gran % (Auto) 0.100, Neut % (Auto) 72.2 H, Lymph % (Auto) 13.1 L, [place] % (Auto) 8.6, Eos % (Auto) 6.0 H, Baso % (Auto) 0.0, Absolute Neuts (auto) 5.0, Total Counted Not Reportable 06/02/18 07:50: Sodium 138, Potassium 4.3, Chloride 101, Carbon Dioxide 30.0, Anion Gap 7, BUN 21 H, Creatinine 1.26, Est GFR (MDRD) Af Amer 70, Est GFR (MDRD) Non-Af 58 L, BUN/Creatinine Ratio 16.7, Glucose 99, Calcium 8.9, Magnesium 2.0 Rhythm: EKG: ECHO: Stress Test: Cardiac Cath: PCI: CT Surgery: Holter monitor: EPS: PPM: CXR: Chest CT Scan: Medical Necessity - Tobacco Use Smoking Status: Former smoker Assessment/Plan #1. Sinus bradycardia: The patient has evidence of sinus bradycardia superimposed upon hypothyroidism most likely a result of chronic amiodarone therapy. However the patient also has a history of paroxysmal atrial fibrillation and appears to do better in sinus rhythm. I recommend continuing amiodarone 100 mg p.o. daily, and increasing his Synthroid from 25->50 mcg p.o. daily. His thyroid function may take several weeks to normalize. Recommend repeat TSH and T4 in 3 weeks time. The patient's dobutamine echocardiogram demonstrates that his heart has the ability to increase heart rate should be necessary. Hopefully with corrective measures of his Synthroid, which may take several weeks, his heart rate will improve. I do not believe the patient requires a pacemaker at this time. His LV function is normal, and his pulmonary pressures are normal as well. He has had no chest pain symptoms and his troponins have been negative. He has had no presyncope, syncope, positional lightheadedness or dizziness or falls. I do not believe the patient requires catheterization at this time. His stress test showed no evidence of ischemia. Would recommend rechecking his TSH and 2-3 weeks time and if still elevated would not recommend increasing his Synthroid 75 mcg p.o. daily. In addition his cortisol level is pending. If this is markedly low, he may require a cosyntropin stim test or steroid replacement therapy to assist with his hypothermia. 2. Thank you very much for the opportunity to participate in the cardiac care of your patient. We will sign off. Please call with any questions. Code Visit Inpatient E&M: [id number] Subs Hosp L2
[2018-06-02] MEDS: MELATONIN 3 MG TABLET PO (21:22)
[2018-06-03] VITALS (8 sets, daily range): BP systolic 131–156; BP diastolic 65–82; PULSE 48–62; RESP 16; TEMP 36.6–36.8; O2SAT 94–98
[2018-06-03] MEDS: Levothyroxine 50 MCG Tablet PO (05:48)
[2018-06-03] MEDS: Carbidopa/Levodopa 25/100 Tablet PO ×3 (05:48→15:31)
[2018-06-03 06:41] LABS: Anion Gap 6 (5-15); BUN 21 mg/dL (7-18); BUN/Creat Ratio 17.8 RATIO (10-20); Calcium,Total 9.2 mg/dL (8.5-10.1); Chloride 102 mmol/L (98-107); Creatinine, Serum 1.18 mg/dL (0.70-1.30); EST Glomerular Filtration Rate 63 mL/min (>60); Est Glom Filt Rate - Afr Amer 76 mL/min (>60); Estimated Creatinine Clearance 52.06 ml/min; Glucose 111 mg/dL (74-106); Potassium 4.7 mmol/L (3.5-5.1); Sodium Level 139 mmol/L (136-145)
[2018-06-03] MEDS: Galantamine Hydrobromide 4 MG Tablet 12 MG PO (09:16)
[2018-06-03] MEDS: Aspirin E.C. 81 MG Tablet PO (09:17)
[2018-06-03] MEDS: Memantine Hydrochloride 10 MG Tablet PO (09:17)
[2018-06-03] MEDS: Amiodarone 200 MG Tablet 100 MG PO (09:17)
[2018-06-03] MEDS: Ciprofloxacin 500 MG Tablet PO (09:17)
[2018-06-03] MEDS: Enoxaparin 40 MG/0.4 ML Syringe SC (09:17)
--- NOTE | 2018-06-03 10:24 | CASEMGMT ---
SW sent updates to [facility]. SW to follow for d/c back to [facility]. Gisell MEDINA
--- NOTE | 2018-06-03 15:24 | PCM.PN.HOSP ---
Patient Problems: Active and Suspected Problems (Last Reviewed 02/13/18 @ 12:52 by Juni Acuna MD) Hypothermia (Acute) Subjective: Much more alert than when I admitted him and could have a conversation Vitals/I&O's: Vital Signs Temp Pulse Resp BP Pulse Ox 97.8 F 48 L 16 131/66 H 98 06/03/18 09:12 06/03/18 11:01 06/03/18 09:12 06/03/18 09:12 06/03/18 09:12 Oxygen Delivery Method Room Air Weight: 203 lb 11.314 oz Body Mass Index (BMI) 27.6 Intake and Output for Last 24 Hours 06/01/18 06/02/18 06/03/18 23:59 23:59 23:59 Intake Total 1070 / 1070 760 / 760 955 / 955 Output Total 300 / 300 300 / 300 2 / 2 Balance 770 / 770 460 / 460 953 / 953 General: Alert, Cooperative, No apparent distress, Confused HEENT: Atraumatic, EOMI, Normocephalic Oral: Moist Mucosa Neck: Supple, No JVD Lungs: Clear to auscultation, Normal air movement, No rhonchi, No wheeze, No rales Cardiovascular: Regular rate, Regular Rhythm, Normal S1, Normal S2, No murmurs Abdomen: Soft, Non Tender, Non-Distended, No Hepato-splenomegaly Extremities: No edema, Capillary Refill Less than 3 Seconds Skin: No rashes, No breakdown Psych/Mental Status: Normal Affect, Appropriate Laboratory Results 06/01/18 10:20: Cortisol 20.20 06/03/18 05:57: Sodium 139, Potassium 4.7, Chloride 102, Carbon Dioxide 31.0, Anion Gap 6, BUN 21 H, Creatinine 1.18, Estim Creat Clear Calc 52.06, Est GFR (MDRD) Af Amer 76, Est GFR (MDRD) Non-Af 63, BUN/Creatinine Ratio 17.8, Glucose 111 H, Calcium 9.2 Current Medications Albuterol/Ipratropium (Duoneb) 3 ml INHALATION Q6H PRN PRN PRN Reason: SOB &/OR WHEEZING Amiodarone HCl (Cordarone) 100 mg PO DAILY [facility] Last Admin: 06/03/18 09:17 Dose: 100 mg Aspirin (Ecotrin) 81 mg PO DAILY [facility] Last Admin: 06/03/18 09:17 Dose: 81 mg Carbidopa/Levodopa (Sinemet) 1 tablet PO TIDAC [facility] Last Admin: 06/03/18 11:59 Dose: 1 tablet Ciprofloxacin HCl (Cipro) 500 mg PO BID [facility] Stop: 06/05/18 22:01 Last Admin: 06/03/18 09:17 Dose: 500 mg Enoxaparin Sodium (Lovenox) 40 mg SC DAILY@1000 [facility] Last Admin: 06/03/18 09:17 Dose: 40 mg Galantamine Hydrobromide (Razadyne) 12 mg PO BID [facility] Last Admin: 06/03/18 09:16 Dose: 12 mg Levothyroxine Sodium (Synthroid) 50 mcg PO DAILY@0600 [facility] Last Admin: 06/03/18 05:48 Dose: 50 mcg Magnesium Hydroxide (Milk Of Magnesia) 30 ml PO DAILY PRN PRN Reason: Constipation Melatonin (Melatonin) 3 mg PO QHS [facility] Last Admin: 06/02/18 21:22 Dose: 3 mg Memantine (Namenda) 10 mg PO BID [facility] Last Admin: 06/03/18 09:17 Dose: 10 mg Nutritional Formula (Lactose Free) (Ensure Enlive) 120 ml PO 4X/DAY [facility] Last Admin: 06/03/18 09:21 Dose: 120 ml Polyethylene Glycol (Miralax) 17 gm PO DAILY [facility] Last Admin: 06/03/18 09:22 Dose: Not Given Sodium Chloride () 5 - 30 ml IV UD PRN PRN Reason: SALINE FLUSH Medical Necessity - Tobacco Use Smoking Status: Former smoker Assessment/Plan All Active Problems (Last Reviewed 02/13/18 @ 12:52 by Juni Acuna MD) Septic shock (Acute) HCAP (healthcare-associated pneumonia) (Acute) UTI (urinary tract infection) (Acute) ALYSSA (acute kidney injury) (Acute) Hyperkalemia (Acute) Lactic acidosis (Acute) Hypothyroidism (Acute) Bradycardia (Acute) Hypothermia (Acute) Failure to thrive (Acute) Hypomagnesemia (Resolved) Atherosclerosis of coronary artery of [place] heart without angina pectoris (Ruled-out) 1. Bradycardia/hypothermia/A-fib/HTN/hypothyroidism - Was initially on IV synthroid - No switched back to oral but increased from 25 mcg to 50 mcg - He will probably need to go higher and have a rechecked TSH as an outpatient - He is continued on his amiodarone by cardiology as it is keeping his afib undercontrol - Echo was normal - continues to be bradycardic but asymptomatic 2. Parkinson - stable - will c/w his cinemet 3. Dementia - baseline has been stable - Will c/w galantamine and memantine 4. Insomnia - can restart trazodone if needed 5. UTI - Will c/w his home cipro - cx on . grew K. pneumo sensitive to cipro - last dose should probably be 06/05 DVT: Lovenox Diet: cardiac diet when able Code Visit Inpatient E&M: 64830 Subs Hosp L2
--- NOTE | 2018-06-03 15:32 | PN_ITS ---
Patient Problems: Active and Suspected Problems (Last Reviewed 02/13/18 @ 12:52 by Juni Acuna MD ) Hypothermia (Acute) Subjective: Much more alert than when I admitted him and could have a conversation Vitals/I&O's: Vital Signs Temp Pulse Resp BP Pulse Ox 97.8 F 48 L 16 131/66 H 98 06/03/18 09:12 06/03/18 11:01 06/03/18 09:12 06/03/18 09:12 06/03/18 09:12 Oxygen Delivery Method Room Air Weight: 203 lb 11.314 oz Body Mass Index (BMI) 27.6 Intake and Output for Last 24 Hours 06/01/18 06/02/18 06/03/18 23:59 23:59 23:59 Intake Total 1070 / 1070 760 / 760 955 / 955 Output Total 300 / 300 300 / 300 2 / 2 Balance 770 / 770 460 / 460 953 / 953 General: Alert, Cooperative, No apparent distress, Confused HEENT: Atraumatic, EOMI, Normocephalic Oral: Moist Mucosa Neck: Supple, No JVD Lungs: Clear to auscultation, Normal air movement, No rhonchi, No wheeze, No rales Cardiovascular: Regular rate, Regular Rhythm, Normal S1, Normal S2, No murmurs Abdomen: Soft, Non Tender, Non-Distended, No Hepato-splenomegaly Extremities: No edema, Capillary Refill Less than 3 Seconds Skin: No rashes, No breakdown Psych/Mental Status: Normal Affect, Appropriate Laboratory Results 06/01/18 10:20: Cortisol 20.20 06/03/18 05:57: Sodium 139, Potassium 4.7, Chloride 102, Carbon Dioxide 31.0, Anion Gap 6, BUN 21 H, Creatinine 1.18, Estim Creat Clear Calc 52.06, Est GFR ( MDRD) Af Amer 76, Est GFR (MDRD) Non-Af 63, BUN/Creatinine Ratio 17.8, Glucose 111 H, Calcium 9.2 Current Medications Albuterol/Ipratropium (Duoneb) 3 ml INHALATION Q6H PRN PRN PRN Reason: SOB &/OR WHEEZING Amiodarone HCl (Cordarone) 100 mg PO DAILY [facility] Last Admin: 06/03/18 09:17 Dose: 100 mg Aspirin (Ecotrin) 81 mg PO DAILY [facility] Last Admin: 06/03/18 09:17 Dose: 81 mg Carbidopa/Levodopa (Sinemet) 1 tablet PO TIDAC [facility] Last Admin: 06/03/18 11:59 Dose: 1 tablet Ciprofloxacin HCl (Cipro) 500 mg PO BID [facility] Stop: 06/05/18 22:01 Last Admin: 06/03/18 09:17 Dose: 500 mg Enoxaparin Sodium (Lovenox) 40 mg SC DAILY@1000 [facility] Last Admin: 06/03/18 09:17 Dose: 40 mg Galantamine Hydrobromide (Razadyne) 12 mg PO BID [facility] Last Admin: 06/03/18 09:16 Dose: 12 mg Levothyroxine Sodium (Synthroid) 50 mcg PO DAILY@0600 [facility] Last Admin: 06/03/18 05:48 Dose: 50 mcg Magnesium Hydroxide (Milk Of Magnesia) 30 ml PO DAILY PRN PRN Reason: Constipation Melatonin (Melatonin) 3 mg PO QHS [facility] Last Admin: 06/02/18 21:22 Dose: 3 mg Memantine (Namenda) 10 mg PO BID [facility] Last Admin: 06/03/18 09:17 Dose: 10 mg Nutritional Formula (Lactose Free) (Ensure Enlive) 120 ml PO 4X/DAY [facility] Last Admin: 06/03/18 09:21 Dose: 120 ml Polyethylene Glycol (Miralax) 17 gm PO DAILY [facility] Last Admin: 06/03/18 09:22 Dose: Not Given Sodium Chloride () 5 - 30 ml IV UD PRN PRN Reason: SALINE FLUSH Medical Necessity - Tobacco Use Smoking Status: Former smoker Assessment/Plan All Active Problems (Last Reviewed 02/13/18 @ 12:52 by Juni Acuna MD) Septic shock (Acute) HCAP (healthcare-associated pneumonia) (Acute) UTI (urinary tract infection) (Acute) ALYSSA (acute kidney injury) (Acute) Hyperkalemia (Acute) Lactic acidosis (Acute) Hypothyroidism (Acute) Bradycardia (Acute) Hypothermia (Acute) Failure to thrive (Acute) Hypomagnesemia (Resolved) Atherosclerosis of coronary artery of [place] heart without angina pectoris ( Ruled-out) 1. Bradycardia/hypothermia/A-fib/HTN/hypothyroidism - Was initially on IV synthroid - No switched back to oral but increased from 25 mcg to 50 mcg - He will probably need to go higher and have a rechecked TSH as an outpatient - He is continued on his amiodarone by cardiology as it is keeping his afib undercontrol - Echo was normal - continues to be bradycardic but asymptomatic 2. Parkinson - stable - will c/w his cinemet 3. Dementia - baseline has been stable - Will c/w galantamine and memantine 4. Insomnia - can restart trazodone if needed 5. UTI - Will c/w his home cipro - cx on . grew K. pneumo sensitive to cipro - last dose should probably be 06/05 DVT: Lovenox Diet: cardiac diet when able Code Visit Inpatient E&M: 37170 Subs Hosp L2
--- NOTE | 2018-06-03 15:37 | PCM.TXEXTCAR ---
- Diet 06/01/18 08:45 Diet: Cardiac/Low Cholesterol Is pt able to select menu?: No - Wound(s) Middle of Back Wound Type: Pustule - Problem/Diagnosis (1) Hypothermia Status: Acute Current Visit: Yes (2) Hypothyroidism Status: Acute Current Visit: No (3) Bradycardia Status: Acute Current Visit: No (4) Hyperlipidemia Status: Chronic Current Visit: No (5) Hypertension Status: Chronic Current Visit: No (6) Paroxysmal atrial fibrillation Status: Chronic Current Visit: No - Allergies/Procedures Done in Hospital Allergies/Adverse Reactions: Allergies No Known Allergies Allergy (Verified 05/31/18 11:15) - Type of Care/Length of Stay Estimated LOS: Convalescent Care Less Than 30 days Type of Care Needed: Skilled Rehab Potential: Good Prognosis: Good - Additional Orders/Day of Discharge Day of Discharge: 06/03/18 - Dietary and Speech Recommendations Dietitian Recommendations/Changes: Continue cardiac diet. Rec ONS w/ medpass if PO at meals <50% consistently- family refused at this time. - Follow Up Care Primary Care Physician: Sarwat Sanches Chi, MD [Primary Care Provider] - Please follow up with your Primary Care Physician in: in 3-5 days
--- NOTE | 2018-06-03 15:39 | PCM.DC.SUM ---
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 The patient was titrated from 10 mcg to a maximun of 30 mcg of dobutamine during the stress. Normal, adequate, dobutamine echocardiogram. Negative for ischemia by EKG and echocardiographic criteria. No anginal symptoms noted. Transient atrial fibrillation during infusion which reverted back to normal sinus rhythm by the end of the procedure. Decreased sensitivity due to poor echo windows requiring Definity agent. Excellent chronotropic response to dobutamine. Final LVEF is 75%. Test terminated due to the attainment of target heart rate. No complications. Summary of Care Provided: HPI: The patient is a 82 year old M [facility] with a h/o a-fib, parkinsons, dementia and hypertension presenting with acute significant bradycardia and hypothermia. He is more confused than normal and is stuporous but arousable though he is incoherent. family was in the room but could not answer many question other than he was more confused than normal. In the ER his TSH was increased to 8.64 from 6.6 on 05/26. Also he was sinus saravanan with a normal troponin. The ER discussed the case with cardiology who recommended to to DC the amiodarone which he has been on for 4 years, per the family, without incident. Hospital Course: 1. Bradycardia/hypothermia/A-fib/HTN/hypothyroidism - Was initially on IV synthroid 50 mcg - Now switched back to oral but increased from 25 mcg to 50 mcg - He will probably need to go higher and have a rechecked TSH as an outpatient in a few weeks - He is continued on his amiodarone by cardiology as it is keeping his afib undercontrol - Echo was normal during dobutamine stress test - continues to be bradycardic but asymptomatic - Hypothermia is resolved 2. Parkinson - stable - will c/w his cinemet 3. Dementia - baseline has been stable - Will c/w galantamine and memantine 4. Insomnia - can restart trazodone if needed 5. UTI - Will c/w his home cipro - cx on 05.26 grew K. pneumo sensitive to cipro - last dose should probably be 06/05 - He is still having burning with urination, if this continues after the termination of his abx, another UA would be in order Home Medications: Medications to take at Discharge aspirin 81 mg tablet,delayed release 81 mg PO DAILY 02/13/18 carbidopa 25 mg-levodopa 100 mg tablet 1 tab PO TID 02/13/18 galantamine ER 24 mg 24 hr capsule,extended release 24 mg PO DAILY 02/13/18 memantine 28 mg capsule sprinkle,extended release 24hr 28 mg PO DAILY 02/13/18 Amiodarone HCl 100 mg PO DAILY 03/05/18 Amlodipine [Norvasc] 5 mg PO DAILY 05/26/18 Melatonin 3 mg PO QHS 05/26/18 Polyethylene Glycol 3350 [Purelax] 17 gm PO DAILY 05/26/18 traZODone [Desyrel] 50 mg PO QHS 05/26/18 Ipratropium/Albuterol Sulfate [Duoneb] 3 ml INHALATION Q6H PRN PRN ampul.neb 05/30/18 Ciprofloxacin [Cipro] 500 mg PO BID 05/31/18 Ensure Enlive 120 ml PO 4X/DAY liquid 06/03/18 Levothyroxine [Synthroid] 50 mcg PO DAILY@0600 tablet 06/03/18 Primary Care Physician: Sarwat Sanches Chi, MD [Primary Care Provider] - Please follow up with your Primary Care Physician in: in 3-5 days Disposition: Long Term facility Minutes spent on discharge:: 35 Patient Condition:: Good Medical Necessity - Tobacco Use Smoking Status: Former smoker Meaningful Use Info Meaningful Use Diagnoses (Choose all that apply): None applicable Code Visit Inpatient E&M: 45733 Disch Hosp
--- NOTE | 2018-06-03 15:43 | DS.PCM_ITS ---
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 The patient was titrated from 10 mcg to a maximun of 30 mcg of dobutamine during the stress. Normal, adequate, dobutamine echocardiogram. Negative for ischemia by EKG and echocardiographic criteria. No anginal symptoms noted. Transient atrial fibrillation during infusion which reverted back to normal sinus rhythm by the end of the procedure. Decreased sensitivity due to poor echo windows requiring Definity agent. Excellent chronotropic response to dobutamine. Final LVEF is 75%. Test terminated due to the attainment of target heart rate. No complications. Summary of Care Provided: HPI: The patient is a 82 year old M from a snf with a h/o a-fib, parkinsons, dementia and hypertension presenting with acute significant bradycardia and hypothermia. He is more confused than normal and is stuporous but arousable though he is incoherent. family was in the room but could not answer many question other than he was more confused than normal. In the ER his TSH was increased to 8.64 from 6.6 on 05/26. Also he was sinus saravanan with a normal troponin. The ER discussed the case with cardiology who recommended to to DC the amiodarone which he has been on for 4 years, per the family, without incident. Hospital Course: 1. Bradycardia/hypothermia/A-fib/HTN/hypothyroidism - Was initially on IV synthroid 50 mcg - Now switched back to oral but increased from 25 mcg to 50 mcg - He will probably need to go higher and have a rechecked TSH as an outpatient in a few weeks - He is continued on his amiodarone by cardiology as it is keeping his afib undercontrol - Echo was normal during dobutamine stress test - continues to be bradycardic but asymptomatic - Hypothermia is resolved 2. Parkinson - stable - will c/w his cinemet 3. Dementia - baseline has been stable - Will c/w galantamine and memantine 4. Insomnia - can restart trazodone if needed 5. UTI - Will c/w his home cipro - cx on 05.26 grew K. pneumo sensitive to cipro - last dose should probably be 06/05 - He is still having burning with urination, if this continues after the termination of his abx, another UA would be in order Home Medications: Medications to take at Discharge aspirin 81 mg tablet,delayed release 81 mg PO DAILY 02/13/18 carbidopa 25 mg-levodopa 100 mg tablet 1 tab PO TID 02/13/18 galantamine ER 24 mg 24 hr capsule,extended release 24 mg PO DAILY 02/13/18 memantine 28 mg capsule sprinkle,extended release 24hr 28 mg PO DAILY 02/13/18 Amiodarone HCl 100 mg PO DAILY 03/05/18 Amlodipine [Norvasc] 5 mg PO DAILY 05/26/18 Melatonin 3 mg PO QHS 05/26/18 Polyethylene Glycol 3350 [Purelax] 17 gm PO DAILY 05/26/18 traZODone [Desyrel] 50 mg PO QHS 05/26/18 Ipratropium/Albuterol Sulfate [Duoneb] 3 ml INHALATION Q6H PRN PRN ampul.neb Ciprofloxacin [Cipro] 500 mg PO BID 05/31/18 Ensure Enlive 120 ml PO 4X/DAY liquid 06/03/18 Levothyroxine [Synthroid] 50 mcg PO DAILY@0600 tablet 06/03/18 Primary Care Physician: Sarwat Sanches Chi, MD [Primary Care Provider] - Please follow up with your Primary Care Physician in: in 3-5 days Disposition: Snf facility Minutes spent on discharge:: 35 Patient Condition:: Good Medical Necessity - Tobacco Use Smoking Status: Former smoker Meaningful Use Info Meaningful Use Diagnoses (Choose all that apply): None applicable Code Visit Inpatient E&M: 43908 Disch Hosp
--- NOTE | 2018-06-03 15:50 | CASEMGMT ---
Patient is ready for d/c back to [facility] today. MARITZA faxed orders. Patient's will transport. She just left for an appt. MARITZA left a message on her home phone. MARITZA also notified RN. RN will also try and reach patient's . Plan: d/c back to [facility] under skilled level of care. Family transported Gisell Barrett Saira MEDINA
== END 2018-06-03 16:57 | disposition skilled nursing facility (03) | DRG 309 ==
LOC: ED 14:32 → PCU 15:14
PROVIDERS: Internal Medicine Cardiovascular Disease; Admitting Provider Family Medicine; Emergency Provider Emergency Medicine; Family Provider Family Medicine Geriatric Medicine; PCP Family Medicine Geriatric Medicine; Visit Provider Internal Medicine
DX: R00.1 Bradycardia, unspecified (principal); N39.0 Urinary tract infection, site not specified; T46.2X5A Adverse effect of other antidysrhythmic drugs, initial encounter; E78.5 Hyperlipidemia, unspecified; E03.9 Hypothyroidism, unspecified; I10 Essential (primary) hypertension; Z87.891 Personal history of nicotine dependence; R68.0 Hypothermia, not associated with low environmental temperature; B96.1 Klebsiella pneumoniae [K. pneumoniae] as the cause of diseases classified elsewhere; Z90.5 Acquired absence of kidney; I48.0 Paroxysmal atrial fibrillation; G20 Parkinson's disease; F03.90 Unspecified dementia, unspecified severity, without behavioral disturbance, psychotic disturbance, mood disturbance, and anxiety
CPT/HCPCS: 36415; 71045; 80048; 82533; 83605; 83735; 84439; 84443; 84484; 85025; 85027; 85610; 85730; 93005; 93017; 93350; 97162; 97166; 97530; 97802; 99285; J7030; Q9957; A4216; C8928

== ENCOUNTER 2018-06-07 11:06 | Inpatient (IN) | payer MEDICARE, OTHER, MEDICAID, SELFPAY ==
[2018-06-07] VITALS (9 sets, daily range): BP systolic 109–144; BP diastolic 57–74; PULSE 40–50; RESP 9–18; TEMP 35.5–36.7; O2SAT 96–99; BMI 27.1; BMI 26.4
--- NOTE | 2018-06-07 11:24 | RAD_ITS ---
STUDY: X-RAY CHEST REASON FOR EXAM: Male, 82 years old. Shortness of breath. TECHNIQUE: Single AP portable view of the chest. COMPARISON: Comparison is made with prior study dated May 31, 2018. FINDINGS: EKG electrodes are seen. Stable elevation of the right hemidiaphragm. Since prior study, there has been improved aeration of the left lung base. Minimal residual changes persist at the left lung base. There is no demonstrated pleural abnormality. There is mild cardiac enlargement. A loop recorder device is seen overlying the left cardiac apex. Normal mediastinum and fara. Normal visualized pulmonary arteries. There is atherosclerotic calcification of the aortic arch with tortuosity. There are diffuse degenerative changes of the visualized thoracic spine. Normal visualized ribs, clavicles, and shoulders. There is no demonstrated abnormality of the visualized soft tissue structures of the upper abdomen. RAD/Chest 1 View (Portable) IMPRESSION: Improved aeration of the left lung base. Mild residual changes persist. Electronically Signed: Satnam Raman MD at 15:25 EDT Tel [phone], Service support ,
--- NOTE | 2018-06-07 11:24 | CT_ITS ---
STUDY: CT BRAIN WITHOUT CONTRAST REASON FOR EXAM: Male, 82 years old. Weakness RADIATION DOSAGE (If Supplied By Facility): CTDIvol = ( 44.99 ) mGy, DLP = ( 846.73 ) mGycm TECHNIQUE: Transaxial CT imaging of the brain was performed without administration of intravenous contrast material. Sagittal and coronal reconstructed images are provided and reviewed. Individualized dose optimization techniques were used for this CT. COMPARISON: 05/27/2018 FINDINGS: Vascular calcifications are seen. Normal calvarium. There is mild to moderate cerebral atrophy with widening of the extra-axial spaces and ventricular dilatation. There are areas of decreased attenuation within the white matter tracts of the supratentorial brain, consistent with microvascular disease changes. Normal basal ganglia and thalami. Normal brainstem. Normal cerebellum. There is no intracranial hemorrhage. There are no findings of an acute ischemic infarction. Normal visualized paranasal sinuses. CT/Brain/Head without Contrast IMPRESSION: Chronic involutional changes. No acute intracranial abnormality. No significant change from 05/27/2018. Electronically Signed: Deshaun Jarvis DO at 14:41 EDT Tel , Service support ,
--- NOTE | 2018-06-07 11:24 | EKG12_ITS ---
Test Reason : SOB Blood Pressure : / mmHG Vent. Rate : 040 BPM Atrial Rate : 040 BPM P-R Int : 228 ms QRS Dur : 150 ms QT Int : 584 ms P-R-T Axes : 027 -04 -01 degrees QTc Int : 475 ms Marked sinus bradycardia with 1st degree A-V block Right bundle branch block Abnormal ECG Confirmed by ERNESTINA MAZA, SUREKHA ([id number]), publication editor SAVANAH UMAÑA ([id number]) on 06/10/2018 3:45:40 PM Referred By: Confirmed By:SUREKHA DO MD
--- NOTE | 2018-06-07 11:27 | ED.VISSUMM ---
- ER Visit Summary Date of Service: 06/07/18 Chief Complaint: Short of breath, bradycardia History of Present Illness: The patient is a 82 M who was admitted recently for sepsis. He was noted to have bradycardia during that admission. His thyroid meds were adjusted approximately a week ago. He was seen by cardiology yesterday. He was sent back to the ER today by nurse practitioner due to low heart rate. Heart rate has been in the 40s. states the patient developed a blank stare during therapy today and has been weak and wanting to sleep since that time. states this is how he looked when he was recently admitted with sepsis. Physical Examination: Blood pressure is 144/69, temperature 96.3, heart rate 41, respiratory rate 10, pulse ox 99% on room air. Patient is sleeping comfortably. He will open his eyes to voice. Head neck examination reveals no sign of trauma. Heart is bradycardic and regular. Lung sounds are clear. Abdomen is soft nontender. Test Results: EKG is sinus bradycardia at 40 bpm with a right bundle branch block. No acute ischemia. Portable chest x-ray shows mild increased markings in the lung bases. CT the head shows moderate atrophy. CBC was normal white count with hemoglobin 11.2. Chemistry studies unremarkable. Urinalysis normal. TSH is 4.88 which is improving when compared to the last 2 values of 8.64 and 7.82. Emergency Department Course and Treatment: Repeat evaluation patient is sleeping comfortably. He will arouse to voice. Nursing staff states he did wake and talk with them when straight cath was done. Test results are discussed with at bedside. She is very frustrated and that nobody can tell her why he is wanting to sleep all the time. states she does not know who her 's neurologist is that cares for his Parkinson's. She does not feel comfortable him going [facility] in this condition. I will speak with the hospitalist. Treatment Plan: [] Disposition: Admit Impression: 1. Altered mental status 2. Bradycardia This note was generated with [employer]izard[employer] software. It may contain incorrect words, spelling, and punctuation that were not noted in review of the chart prior to signing ED Disposition - Plan for ED Patient: Chief Complaint: Shortness of Breath Referrals: Sarwat Sanches Chi, MD [Primary Care Provider] -
[2018-06-07 12:03] LABS: Absolute Neutrophil Count 4.7 X10^3/uL (2.0-7.7); Basophil# 0.01 X10^3/uL; Basophil% 0.2 % (0-1); Eosinophils% 4.6 % (0-5); Hematocrit 34.6 % (40-54); Hemoglobin 11.2 g/dl (13.0-16.5); Lymphocyte % 9.3 % (19-41); Mean Corp Hgb Conc 32.4 g/gl (32-36); Mean Corpuscular Hgb 30.4 pg (27.0-32.0); Mean Corpuscular Volume 93.8 fL (80-94); Mean Platelet Vol. 10.9 fl (6.2-12.0); Monocyte# 0.79 X10^3/uL; Monocyte% 12.2 % (0-10); Neutrophil # 4.74 X10^3/uL (2.7-7.7); Neutrophil % 73.4 % (47-70); Platelet Count 154 K/mm3 (150-450); RBC Distribution Width SD 57.1 fl (35.1-43.9); Red Blood Count 3.69 M/mm3 (4.6-6.2); White Blood Count 6.5 K/mm3 (4.4-11.0)
[2018-06-07 12:04] LABS: Differential Indicated SCAN CRITERIA MET; POSITIVE COUNT NO; POSITIVE DIFFERENTIAL YES; POSITIVE MORPHOLOGY NO
[2018-06-07 12:06] LABS: Absolute Nucleated RBC Count 0.03 10^3/uL (0-5); NRBC Flagged by Analyzer 0.4 % (0-5)
[2018-06-07 12:08] LABS: BUN 18 mg/dL (7-18); Creatinine, Serum 1.07 mg/dL (0.70-1.30); EST Glomerular Filtration Rate 70 mL/min (>60); Estimated Creatinine Clearance 57.41 ml/min; Glucose 125 mg/dL (74-106)
[2018-06-07 12:09] LABS: Anion Gap 4 (5-15); BUN/Creat Ratio 16.8 RATIO (10-20); Calcium,Total 9.2 mg/dL (8.5-10.1); Chloride 101 mmol/L (98-107); Est Glom Filt Rate - Afr Amer 85 mL/min (>60); Potassium 4.7 mmol/L (3.5-5.1); Sodium Level 140 mmol/L (136-145); Thyroid Stim Hormone (TSH) 4.88 uIU/mL (0.358-3.74)
[2018-06-07] MEDS: 0.9% Normal Saline 1,000 ML 150 ML IV (12:57)
[2018-06-07 14:22] LABS: Bacteria 0 SEEN /hpf (None Seen); Mucous, Urine 0 SEEN /hpf (<or=2+); Red Blood Cells-Urine 0 SEEN /hpf (0-5); Squamous Epithelial Cells - UA 0 SEEN /hpf (0-5); White Blood Cells 0 SEEN /hpf (0-5)
[2018-06-07 14:28] LABS: Color, Urine Yellow (Yellow); Glucose, Dipstick Normal (Normal); Ketone-Dipstick Negative (Negative); Leukocyte Esterase-Dipstick Negative /ul (Negative); Nitrite-Dipstick Negative (Negative); Occult Blood-Urine Negative /ul (Negative); Protein-Dipstick Negative (Negative); Specific Gravity, Urine 1.005 (1.002-1.030); Urine Bilirubin Dipstick Negative (Negative); Urine Clarity Clear (Clear); Urine Urobilinogen Normal (Normal)
--- NOTE | 2018-06-07 16:24 | NURSING ---
PCU ALTEREED MENTAL STATUS, BRADYCARDIA MELLY
--- NOTE | 2018-06-07 16:51 | PCM.HP.STD ---
Problem List (1) Benign essential hypertension Status: Chronic (2) Septic shock Status: Resolved (3) HCAP (healthcare-associated pneumonia) Status: Resolved (4) UTI (urinary tract infection) Status: Resolved Qualifiers: Urinary tract infection type: site unspecified (5) ALYSSA (acute kidney injury) Status: Resolved (6) Hyperkalemia Status: Resolved (7) Lactic acidosis Status: Resolved (8) Hypothyroidism Status: Chronic Qualifiers: (9) Alzheimer's dementia without behavioral disturbance Status: Chronic Qualifiers: Alzheimer's disease onset: unspecified onset Qualified Code(s): G30.9 - Alzheimer's disease, unspecified; F02.80 - Dementia in other diseases classified elsewhere without behavioral disturbance (10) Bradycardia Status: Acute (11) Hypothermia Status: Resolved (12) Failure to thrive Status: Chronic (13) Syncope Status: Chronic Qualifiers: Syncope type: unspecified Qualified Code(s): R55 - Syncope and collapse (14) History of loop recorder Status: Chronic (15) Right bundle branch block Status: Chronic (16) Hyperlipidemia Status: Chronic Qualifiers: (17) Paroxysmal atrial fibrillation Status: Chronic (18) Atrial flutter Status: Chronic History of Present Illness Date of Admission: 06/07/18 Chief Complaint: Bradycardia The patient is a 82 year old M was discharged past Sunday, this week when he was admitted for bradycardia along with hypothermia. Prior to that he was in the ICU for septic shock secondary to healthcare associated pneumonia and complicated UTI, acute kidney injury and bradycardia along with hyponatremia and hyperkalemia and hypothermia was sent to ER from [facility] for bradycardia and lethargic, and somnolent. His levothyroxine dose increased to 50 mcg from 25 last time. Patient is also on trazodone, vitamin thiamine and galantamine. This time, he did not have hypothermia. Temperature was 96.3 Fahrenheit. In ED, heart rate in 40s. As per the EMS, his heart rate was in 40s. EKG shows marked sinus bradycardia with first-degree AV block and RBBB. Patient could not give history himself and has blank look secondary to Alzheimer's dementia, Parkinson's disease. His TSH level has been slowly improving, first one 8.64, 7.82 and then 4.8. Free T4 1.17 and then 1.50. Past Medical History Past Medical History (Chronic Problems): Chronic Problems (Last Updated 06/06/18 @ 14:09 by KEYLA Peralta) Benign essential hypertension (Chronic) Hypothyroidism (Chronic) Alzheimer's dementia without behavioral disturbance (Chronic) Failure to thrive (Chronic) Syncope (Chronic) History of loop recorder (Chronic 10/12/16) Right bundle branch block (Chronic) Hyperlipidemia (Chronic) Paroxysmal atrial fibrillation (Chronic) Atrial flutter (Chronic) Medical History: Medical History (Last Updated 06/06/18 @ 14:09 by KEYLA Peralta) Benign essential hypertension (Chronic) I10 Septic shock (Acute) A41.9, R65.21 HCAP (healthcare-associated pneumonia) (Acute) J18.9 UTI (urinary tract infection) (Acute) N39.0 ALYSSA (acute kidney injury) (Acute) N17.9 Hyperkalemia (Acute) E87.5 Lactic acidosis (Acute) E87.2 Hypothyroidism (Acute) E03.9 Alzheimer's dementia without behavioral disturbance (Chronic) G30.9, F02.80 Bradycardia (Acute) R00.1 Hypothermia (Acute) T68.XXXA Failure to thrive (Acute) Syncope (Chronic) R55 Right bundle branch block (Chronic) I45.10 Hyperlipidemia (Chronic) E78.5 Paroxysmal atrial fibrillation (Chronic) I48.0 Atrial flutter (Chronic) I48.92 Alzheimer disease G30.9, F02.80 Atherosclerosis of coronary artery of [place] heart without angina pectoris (Ruled-out) I25.10 Allergies No Known Allergies Allergy (Verified 06/07/18 11:07) Home Medications: Ambulatory Orders Medication Instructions Recorded aspirin 81 mg tablet,delayed 81 mg PO DAILY 02/13/18 release carbidopa 25 mg-levodopa 100 mg 1 tab PO TID 02/13/18 tablet memantine 28 mg capsule 28 mg PO DAILY 02/13/18 sprinkle,extended release 24hr Amiodarone HCl 100 mg PO DAILY 03/05/18 Amlodipine [Norvasc] 5 mg PO DAILY 05/26/18 Melatonin 3 mg PO QHS 05/26/18 Polyethylene Glycol 3350 [Purelax] 17 gm PO DAILY 05/26/18 traZODone [Desyrel] 50 mg PO QHS 09/02/18 Ipratropium/Albuterol Sulfate 3 ml INHALATION Q6H PRN PRN 05/30/18 [Duoneb] ampul.neb Galantamine HBr [Galantamine ER] 24 mg PO DAILY 06/07/18 L. Rhamnosus GG/Inulin [Culturelle 1 each PO DAILY 06/07/18 Capsule] Levothyroxine [Synthroid] 50 mcg PO DAILY@0600 06/07/18 Magnesium Hydroxide [Milk Of 30 mg PO DAILY PRN PRN 06/07/18 Magnesia] Surgical History: Surgical History (Last Updated 06/06/18 @ 14:28 by Erin Geller) History of loop recorder (Chronic) Onset Date: 10/12/16 Z98.890 History of cardioversion Onset Date: 06/15/14 Z98.890 ELENA guided DCCV; Successful DC cardioversion into sinus rhythm 12/29/2013 and 06/15/2014 History of left heart catheterization Onset Date: 12/09/13 Z98.890 1. Angiographically normal left main coronary artery. 2. Left anterior descending artery with no significant disease. 3. Left circumflex artery With no significant disease. 4. Dominant right coronary artery with no significant disease. 5. Preserved ejection fraction. History of nephrectomy Z90.5 left Surgical History: cataract, - - Unilateral nephrectomy with history of congenital kidney disease, loop recorder placement, cataract surgery, cardioversion. Psychiatric History: No pertinent psych hx Smoking Status: Former smoker Tobacco Use: Cigars, Pipe - *Family History Maternal History Items: No pertinent history Paternal History Items: - - Patient without any marketed maternal or paternal family history including heart disease, diabetes, cancer. Sibling History Items: - - Patient without any marketed maternal or paternal family history including heart disease, diabetes, cancer. Review of Systems Constitutional: Denies: Night Sweats Respiratory: Denies: Shortness of Breath, Shortness of breath upon exertion Gastrointestinal: Reports: Constipation. Denies: Abdominal Pain, Nausea, Melena, Vomiting Neurological: Reports: Balance problems Unable to obtain accurate/complete ROS d/t: Because of Alzheimer's dementia, Parkinson's disease VTE Information - Inpt Only VTE Present on Admission: No VTE Mechan Device Prophylaxis: None VTE Pharm Prophylaxis ordered?: Yes - Physical Exam General: Alert, Confused, Lethargic HEENT: Atraumatic, PERRLA, EOMI, Normocephalic Neck: Supple, No JVD, Negative Carotid Bruits Lungs: Clear to auscultation, No rhonchi, No wheeze, No rales, Diminished Cardiovascular: Regular Rhythm, Normal S1, Normal S2, No murmurs, Bradycardic Abdomen: Bowel Sounds Present, Soft, Non Tender Extremities: Capillary Refill Less than 3 Seconds, Edema Skin: No rashes, No breakdown Musculoskeletal: No Tenderness to Palpation of Joints or Extremities, Arthritic Changes, Muscle Wasting Neurological: Cranial nerves II-XII grossly intact, Neuro grossly intact Psych/Mental Status: Flat Affect, Depressed Vital Signs Temp Pulse Resp BP Pulse Ox 96.3 F L 41 L 9 L 117/74 96 06/07/18 11:07 06/07/18 15:00 06/07/18 15:00 06/07/18 15:00 06/07/18 15:00 Assessment/Plan All Active Problems (Last Updated 06/06/18 @ 14:09 by Henrik Patel NP-C) Septic shock (Resolved) HCAP (healthcare-associated pneumonia) (Resolved) UTI (urinary tract infection) (Resolved) ALYSSA (acute kidney injury) (Resolved) Hyperkalemia (Resolved) Lactic acidosis (Resolved) Bradycardia (Acute) Hypothermia (Resolved) Hypomagnesemia (Resolved) Atherosclerosis of coronary artery of [place] heart without angina pectoris (Ruled-out) The patient is a 82 year old M was discharged past Sunday, this week when he was admitted for bradycardia along with hypothermia. Prior to that he was in the ICU for septic shock secondary to healthcare associated pneumonia and complicated UTI, acute kidney injury and bradycardia along with hyponatremia and hyperkalemia and hypothermia was sent to ER from [facility] for bradycardia and lethargic, and somnolent. His levothyroxine dose increased to 50 mcg from 25 last time. Patient is also on trazodone, vitamin memantine and galantamine. This time, he did not have hypothermia. Temperature was 96.3 Fahrenheit. In ED, heart rate in 40s. As per the EMS, his heart rate was in 40s. EKG shows marked sinus bradycardia with first-degree AV block and RBBB. Patient could not give history himself and has blank look secondary to Alzheimer's dementia, Parkinson's disease. His TSH level has been slowly improving, first one 8.64, 7.82 and then 4.8. Free T4 1.17 and then 1.50. 1. Marked sinus bradycardia, probably clinically hypothyroidism or effect of amiodarone: Patient is being admitted on PCU for further monitoring. Cycle cardiac enzymes. Hold amiodarone. Increase Synthroid to 75 mcg daily. Cardiology consult and discussed with Dr. ryder. Patient recently had a dobutamine echocardiogram showed LV function normal, EF 65%. Negative for ischemia. No anginal symptoms during the stress test. Transient A. fib which reverted back to normal sinus rhythm by the end of the procedure. Excellent chronotropic response to dobutamine. 2. Lethargy/sleepiness, suggestive of acute encephalopathy probably from polypharmacy: Hold sleeping medications including trazodone, galantamine and memantine. 3. Possible clinically hypothyroidism: Although biochemically seems euthyroid, free T4 1.5, TSH 4.88 but patient is bradycardic, slow, lazy, constipated, somnolent which might be multifactorial due to polypharmacy too. Repeat free T4 tomorrow a.m. cortisol level was normal 20 micrograms per deciliter on 06/01/2018. 4. Recent admission for healthcare acid pneumonia, UTI, hypothermia and hyperkalemia: Has been corrected. Resolved Other chronic comorbidities include Parkinson's disease, paroxysmal A. fib; not on anticoagulant, hypertension, Alzheimer's dementia, insomnia and low functional capacity: Home medication reconciliation done. DVT prophylaxis: On Lovenox 40 milligrams subcut daily Advanced directive: Patient is DNR CC arrest. Code Visit Inpatient E&M: 66070 Init Hosp L3
--- NOTE | 2018-06-07 16:55 | CM.ED ---
Social Work Note Face to face with pt and family. Introduced self and role at [facility]. The pt is from [facility] and confirm with family that they intend on pt returning there. Pt is at [facility] under his Medicare and does not require a pre-cert to return and may return at discharge if communicated with SNF prior to discharge. SW on assigned unit to assist in transition back to [facility]. Plan: [facility] oDna Peralta, GAS ENGINE PERFORMANCE ENGINEER, RELAY TELEGRAPHER
--- NOTE | 2018-06-07 16:56 | HP.PCM_ITS ---
Problem List (1) Benign essential hypertension Status: Chronic (2) Septic shock Status: Resolved (3) HCAP (healthcare-associated pneumonia) Status: Resolved (4) UTI (urinary tract infection) Status: Resolved Qualifiers: Urinary tract infection type: site unspecified (5) ALYSSA (acute kidney injury) Status: Resolved (6) Hyperkalemia Status: Resolved (7) Lactic acidosis Status: Resolved (8) Hypothyroidism Status: Chronic Qualifiers: (9) Alzheimer's dementia without behavioral disturbance Status: Chronic Qualifiers: Alzheimer's disease onset: unspecified onset Qualified Code(s): G30.9 - Alzheimer's disease, unspecified; F02.80 - Dementia in other diseases classified elsewhere without behavioral disturbance (10) Bradycardia Status: Acute (11) Hypothermia Status: Resolved (12) Failure to thrive Status: Chronic (13) Syncope Status: Chronic Qualifiers: Syncope type: unspecified Qualified Code(s): R55 - Syncope and collapse (14) History of loop recorder Status: Chronic (15) Right bundle branch block Status: Chronic (16) Hyperlipidemia Status: Chronic Qualifiers: (17) Paroxysmal atrial fibrillation Status: Chronic (18) Atrial flutter Status: Chronic History of Present Illness Date of Admission: 06/07/18 Chief Complaint: Bradycardia The patient is a 82 year old M was discharged past Sunday, this week when he was admitted for bradycardia along with hypothermia. Prior to that he was in the ICU for septic shock secondary to healthcare associated pneumonia and complicated UTI, acute kidney injury and bradycardia along with hyponatremia and hyperkalemia and hypothermia was sent to ER from [facility] for bradycardia and lethargic, and somnolent. His levothyroxine dose increased to 50 mcg from 25 last time. Patient is also on trazodone, vitamin thiamine and galantamine. This time, he did not have hypothermia. Temperature was 96.3 Fahrenheit. In ED , heart rate in 40s. As per the EMS, his heart rate was in 40s. EKG shows marked sinus bradycardia with first-degree AV block and RBBB. Patient could not give history himself and has blank look secondary to Alzheimer 's dementia, Parkinson's disease. His TSH level has been slowly improving, first one 8.64, 7.82 and then 4.8. Free T4 1.17 and then 1.50. Past Medical History Past Medical History (Chronic Problems): Chronic Problems (Last Updated 06/06/18 @ 14:09 by KEYLA Peralta) Benign essential hypertension (Chronic) Hypothyroidism (Chronic) Alzheimer's dementia without behavioral disturbance (Chronic) Failure to thrive (Chronic) Syncope (Chronic) History of loop recorder (Chronic 10/12/16) Right bundle branch block (Chronic) Hyperlipidemia (Chronic) Paroxysmal atrial fibrillation (Chronic) Atrial flutter (Chronic) Medical History: Medical History (Last Updated 06/06/18 @ 14:09 by KEYLA Peralta) Benign essential hypertension (Chronic) I10 Septic shock (Acute) A41.9, R65.21 HCAP (healthcare-associated pneumonia) (Acute) J18.9 UTI (urinary tract infection) (Acute) N39.0 ALYSSA (acute kidney injury) (Acute) N17.9 Hyperkalemia (Acute) E87.5 Lactic acidosis (Acute) E87.2 Hypothyroidism (Acute) E03.9 Alzheimer's dementia without behavioral disturbance (Chronic) G30.9, F02.80 Bradycardia (Acute) R00.1 Hypothermia (Acute) T68.XXXA Failure to thrive (Acute) Syncope (Chronic) R55 Right bundle branch block (Chronic) I45.10 Hyperlipidemia (Chronic) E78.5 Paroxysmal atrial fibrillation (Chronic) I48.0 Atrial flutter (Chronic) I48.92 Alzheimer disease G30.9, F02.80 Atherosclerosis of coronary artery of [place] heart without angina pectoris ( Ruled-out) I25.10 Allergies No Known Allergies Allergy (Verified 06/07/18 11:07) Home Medications: Ambulatory Orders Medication Instructions Recorded aspirin 81 mg tablet,delayed 81 mg PO DAILY 02/13/18 release carbidopa 25 mg-levodopa 100 mg 1 tab PO TID 02/13/18 tablet memantine 28 mg capsule 28 mg PO DAILY 02/13/18 sprinkle,extended release 24hr Amiodarone HCl 100 mg PO DAILY 03/05/18 Amlodipine [Norvasc] 5 mg PO DAILY 05/26/18 Melatonin 3 mg PO QHS 05/26/18 Polyethylene Glycol 3350 [Purelax] 17 gm PO DAILY 05/26/18 traZODone [Desyrel] 50 mg PO QHS 09/02/18 Ipratropium/Albuterol Sulfate 3 ml INHALATION Q6H PRN PRN 05/30/18 [Duoneb] ampul.neb Galantamine HBr [Galantamine ER] 24 mg PO DAILY 06/07/18 L. Rhamnosus GG/Inulin [Culturelle 1 each PO DAILY 06/07/18 Capsule] Levothyroxine [Synthroid] 50 mcg PO DAILY@0600 06/07/18 Magnesium Hydroxide [Milk Of 30 mg PO DAILY PRN PRN 06/07/18 Magnesia] Surgical History: Surgical History (Last Updated 06/06/18 @ 14:28 by Erin Geller) History of loop recorder (Chronic) Onset Date: 10/12/16 Z98.890 History of cardioversion Onset Date: 06/15/14 Z98.890 ELENA guided DCCV; Successful DC cardioversion into sinus rhythm 12/29/2013 and History of left heart catheterization Onset Date: 12/09/13 Z98.890 1. Angiographically normal left main coronary artery. 2. Left anterior descending artery with no significant disease. 3. Left circumflex artery With no significant disease. 4. Dominant right coronary artery with no significant disease. 5. Preserved ejection fraction. History of nephrectomy Z90.5 left Surgical History: cataract, - - Unilateral nephrectomy with history of congenital kidney disease, loop recorder placement, cataract surgery, cardioversion. Psychiatric History: No pertinent psych hx Smoking Status: Former smoker Tobacco Use: Cigars, Pipe - *Family History Maternal History Items: No pertinent history Paternal History Items: - - Patient without any marketed maternal or paternal family history including heart disease, diabetes, cancer. Sibling History Items: - - Patient without any marketed maternal or paternal family history including heart disease, diabetes, cancer. Review of Systems Constitutional: Denies: Night Sweats Respiratory: Denies: Shortness of Breath, Shortness of breath upon exertion Gastrointestinal: Reports: Constipation. Denies: Abdominal Pain, Nausea, Melena , Vomiting Neurological: Reports: Balance problems Unable to obtain accurate/complete ROS d/t: Because of Alzheimer's dementia, Parkinson's disease VTE Information - Inpt Only VTE Present on Admission: No VTE Mechan Device Prophylaxis: None VTE Pharm Prophylaxis ordered?: Yes - Physical Exam General: Alert, Confused, Lethargic HEENT: Atraumatic, PERRLA, EOMI, Normocephalic Neck: Supple, No JVD, Negative Carotid Bruits Lungs: Clear to auscultation, No rhonchi, No wheeze, No rales, Diminished Cardiovascular: Regular Rhythm, Normal S1, Normal S2, No murmurs, Bradycardic Abdomen: Bowel Sounds Present, Soft, Non Tender Extremities: Capillary Refill Less than 3 Seconds, Edema Skin: No rashes, No breakdown Musculoskeletal: No Tenderness to Palpation of Joints or Extremities, Arthritic Changes, Muscle Wasting Neurological: Cranial nerves II-XII grossly intact, Neuro grossly intact Psych/Mental Status: Flat Affect, Depressed Vital Signs Temp Pulse Resp BP Pulse Ox 96.3 F L 41 L 9 L 117/74 96 06/07/18 11:07 06/07/18 15:00 06/07/18 15:00 06/07/18 15:00 06/07/18 15:00 Assessment/Plan All Active Problems (Last Updated 06/06/18 @ 14:09 by Henrik Patel NP-C) Septic shock (Resolved) HCAP (healthcare-associated pneumonia) (Resolved) UTI (urinary tract infection) (Resolved) ALYSSA (acute kidney injury) (Resolved) Hyperkalemia (Resolved) Lactic acidosis (Resolved) Bradycardia (Acute) Hypothermia (Resolved) Hypomagnesemia (Resolved) Atherosclerosis of coronary artery of [place] heart without angina pectoris ( Ruled-out) The patient is a 82 year old M was discharged past Sunday, this week when he was admitted for bradycardia along with hypothermia. Prior to that he was in the ICU for septic shock secondary to healthcare associated pneumonia and complicated UTI, acute kidney injury and bradycardia along with hyponatremia and hyperkalemia and hypothermia was sent to ER from [facility] for bradycardia and lethargic, and somnolent. His levothyroxine dose increased to 50 mcg from 25 last time. Patient is also on trazodone, vitamin memantine and galantamine. This time, he did not have hypothermia. Temperature was 96.3 Fahrenheit. In ED , heart rate in 40s. As per the EMS, his heart rate was in 40s. EKG shows marked sinus bradycardia with first-degree AV block and RBBB. Patient could not give history himself and has blank look secondary to Alzheimer 's dementia, Parkinson's disease. His TSH level has been slowly improving, first one 8.64, 7.82 and then 4.8. Free T4 1.17 and then 1.50. 1. Marked sinus bradycardia, probably clinically hypothyroidism or effect of amiodarone: Patient is being admitted on PCU for further monitoring. Cycle cardiac enzymes. Hold amiodarone. Increase Synthroid to 75 mcg daily. Cardiology consult and discussed with Dr. ryder. Patient recently had a dobutamine echocardiogram showed LV function normal, EF 65%. Negative for ischemia. No anginal symptoms during the stress test. Transient A. fib which reverted back to normal sinus rhythm by the end of the procedure. Excellent chronotropic response to dobutamine. 2. Lethargy/sleepiness, suggestive of acute encephalopathy probably from polypharmacy: Hold sleeping medications including trazodone, galantamine and memantine. 3. Possible clinically hypothyroidism: Although biochemically seems euthyroid, free T4 1.5, TSH 4.88 but patient is bradycardic, slow, lazy, constipated, somnolent which might be multifactorial due to polypharmacy too. Repeat free T4 tomorrow a.m. cortisol level was normal 20 micrograms per deciliter on 2017. 4. Recent admission for healthcare acid pneumonia, UTI, hypothermia and hyperkalemia: Has been corrected. Resolved Other chronic comorbidities include Parkinson's disease, paroxysmal A. fib; not on anticoagulant, hypertension, Alzheimer's dementia, insomnia and low functional capacity: Home medication reconciliation done. DVT prophylaxis: On Lovenox 40 milligrams subcut daily Advanced directive: Patient is DNR CC arrest. Code Visit Inpatient E&M: 62416 Init Hosp L3
--- NOTE | 2018-06-07 18:19 | PCM.CONS.C ---
Reason for Consult Date of Consultation: 06/07/18 Reason for Consultation: Evaluation of bradycardia History of Present Illness: HAM FRANCIS, is a 82 M who was brought back to the emergency room after a recent admission. Apparently he was found in the [place] [facility] to not be very expressive and also to have a low heart rate. He has a history of paroxysmal atrial fibrillation, right bundle branch block, and hypertension. He also has a history of syncope, implantable loop recorder, dementia, and Parkinson's disease. Patient presented to [facility] emergency department in May 2018 with a low heart rate. EKG showed sinus bradycardia with a rate of [address] and T-wave changes. He was admitted for further evaluation. His TSH was noted to be elevated. His thyroid medication was adjusted for this. He remained asymptomatic. His low-dose amiodarone was continued due to dobutamine stress echocardiogram showing atrial fibrillation during infusion. The stress test was negative for ischemia and showed appropriate heart rate response. His cardiac enzymes remained negative. He was also treated for urinary tract infection. He was ultimately discharged back to nursing facility to monitor TSH. One day prior to his most recent admission he was discharged from [facility] for septic shock secondary to pneumonia and complicated UTI. During that hospitalization his EKG showed wide junctional rhythm which stabilized to normal sinus rhythm after his electrolytes were replaced. Pt. denies chest, arm, jaw, or neck discomfort. His exercise tolerance is stable. Pt. denies symptoms of CHF, palpitations, lightheadedness, dizziness, near syncope, or syncopal episodes. Pt. denies edema or claudication issues. Pt. denies orthopnea, PND, myalgia, or unexplainable fatigue. His family is rather concerned that his heart rate has still been low. He has had no rosette syncopal episodes. Past Medical History Allergies/Adverse Reactions: Allergies No Known Allergies Allergy (Verified 06/07/18 11:07) Home Medications: Ambulatory Orders Medication Instructions Recorded aspirin 81 mg tablet,delayed 81 mg PO DAILY 02/13/18 release carbidopa 25 mg-levodopa 100 mg 1 tab PO TID 02/13/18 tablet memantine 28 mg capsule 28 mg PO DAILY 02/13/18 sprinkle,extended release 24hr Amiodarone HCl 100 mg PO DAILY 03/05/18 Amlodipine [Norvasc] 5 mg PO DAILY 05/26/18 Melatonin 3 mg PO QHS 05/26/18 Polyethylene Glycol 3350 [Purelax] 17 gm PO DAILY 05/26/18 traZODone [Desyrel] 50 mg PO QHS 05/26/18 Ipratropium/Albuterol Sulfate 3 ml INHALATION Q6H PRN PRN 05/30/18 [Duoneb] ampul.neb Galantamine HBr [Galantamine ER] 24 mg PO DAILY 06/07/18 L. 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 Psychiatric History: No pertinent psych hx - *Family History Maternal History Items: No pertinent history Paternal History Items: - - Patient without any marketed maternal or paternal family history including heart disease, diabetes, cancer. Sibling History Items: - - Patient without any marketed maternal or paternal family history including heart disease, diabetes, cancer. Smoking Status: Former smoker Tobacco Use: Cigars, Pipe Alcohol: None Drugs: None Review of Systems - Review of Systems General: Reports: Fatigue. Denies: Fever, Night Sweats Cardiovascular: Denies: Chest Discomfort, Shortness of Breath, Orthopnea, PND, Peripheral Edema, Palpitations, Lightheadedness, Dizziness, Near Syncope, Syncope Respiratory: Denies: Cough, Sputum Production, Hemoptysis Gastrointestinal: Denies: Hematemesis, Hematochezia, Melena Genitourinary: Denies: Dysuria, Hematuria Skin: Denies: Rash Subjectve: Elderly man in no apparent distress lying in bed Objective: Vital Signs Temp Pulse Resp BP Pulse Ox 96 F L 47 L 18 142/72 H 97 06/07/18 17:35 06/07/18 17:36 06/07/18 17:35 06/07/18 17:35 06/07/18 17:35 Oxygen Delivery Method Room Air General: Awake, Alert, Oriented x 3 HEENT: PERRL, EOMI, Sclera Non Icteric Neck: Supple, Good ROM, No Lymph Node Enlargement Lungs: Clear to auscultation Cardiovascular: Regular Rhythm, Normal S1, Normal S2, No Murmurs, No Rubs, No Gallops Vascular: No Carotid Bruits, Normal Femoral Pulses, Normal Radial Pulses, Normal Dorsalis Pedal Pulse, Normal Posterior Tibial Pulses Abdomen: Bowel Sounds Present, Soft, Non Tender, No HSM, No Organomegaly Extremities: No Cyanosis, No Clubbing, No edema Neurological: No Focal Motor or Sensory Deficit Rhythm: EKG: Sinus bradycardia with a rate of 40 bpm ECHO: Stress Test: Cardiac Cath: PCI: CT Surgery: Holter monitor: EPS: PPM: CXR: Chest CT Scan: Assessment/Plan 1. Asymptomatic sinus bradycardia Patient presents with asymptomatic sinus bradycardia. He is rather somnolent but I do not think that this is due to his heart rate. He recently was in the hospital and underwent a dobutamine echocardiographic exam which demonstrated adequate chronotropic response. He may have residual effects from the amiodarone still on board and I would recommend at this time that the amiodarone be completely discontinued. We will continue to monitor his heart rate. 2. Paroxysmal atrial fibrillation Does have a previous history of paroxysmal atrial fibrillation. At this time he is maintaining sinus rhythm. He more than likely has some sick sinus syndrome. Due to the fact that he gets rather bradycardic on the above my recommendation would be for us to discontinue the amiodarone and see what happens to his heart rate. If he goes into atrial fibrillation we can treat him with rate control. 3. Parkinson's disease I suspect that his masklike facies is likely secondary to his Parkinson's disease which may also be contributing to his fatigue and somnolence. At this time I will defer to the neurologist for the treatment of the above. Thank you for allowing me to participate in the care of your patient. Please don't hesitate to call if any issues arise
--- NOTE | 2018-06-07 18:24 | CON.PCM_ITS ---
Reason for Consult Date of Consultation: 06/07/18 Reason for Consultation: Evaluation of bradycardia History of Present Illness: HAM FRANCIS, is a 82 M who was brought back to the emergency room after a recent admission. Apparently he was found in the shelter to not be very expressive and also to have a low heart rate. He has a history of paroxysmal atrial fibrillation, right bundle branch block, and hypertension. He also has a history of syncope, implantable loop recorder, dementia, and Parkinson's disease. Patient presented to [facility] emergency department in May 2018 with a low heart rate. EKG showed sinus bradycardia with a rate of [address] and T-wave changes. He was admitted for further evaluation. His TSH was noted to be elevated. His thyroid medication was adjusted for this. He remained asymptomatic. His low-dose amiodarone was continued due to dobutamine stress echocardiogram showing atrial fibrillation during infusion. The stress test was negative for ischemia and showed appropriate heart rate response. His cardiac enzymes remained negative. He was also treated for urinary tract infection. He was ultimately discharged back to nursing facility to monitor TSH. One day prior to his most recent admission he was discharged from [facility] for septic shock secondary to pneumonia and complicated UTI. During that hospitalization his EKG showed wide junctional rhythm which stabilized to normal sinus rhythm after his electrolytes were replaced. Pt. denies chest, arm, jaw, or neck discomfort. His exercise tolerance is stable. Pt. denies symptoms of CHF, palpitations, lightheadedness, dizziness, near syncope, or syncopal episodes. Pt. denies edema or claudication issues. Pt. denies orthopnea, PND, myalgia, or unexplainable fatigue. His family is rather concerned that his heart rate has still been low. He has had no rosette syncopal episodes. Past Medical History Allergies/Adverse Reactions: Allergies No Known Allergies Allergy (Verified 06/07/18 11:07) Home Medications: Ambulatory Orders Medication Instructions Recorded aspirin 81 mg tablet,delayed 81 mg PO DAILY 02/13/18 release carbidopa 25 mg-levodopa 100 mg 1 tab PO TID 02/13/18 tablet memantine 28 mg capsule 28 mg PO DAILY 02/13/18 sprinkle,extended release 24hr Amiodarone HCl 100 mg PO DAILY 03/05/18 Amlodipine [Norvasc] 5 mg PO DAILY 05/26/18 Melatonin 3 mg PO QHS 05/26/18 Polyethylene Glycol 3350 [Purelax] 17 gm PO DAILY 05/26/18 traZODone [Desyrel] 50 mg PO QHS 05/26/18 Ipratropium/Albuterol Sulfate 3 ml INHALATION Q6H PRN PRN 05/30/18 [Duoneb] ampul.neb Galantamine HBr [Galantamine ER] 24 mg PO DAILY 06/07/18 L. 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 Psychiatric History: No pertinent psych hx - *Family History Maternal History Items: No pertinent history Paternal History Items: - - Patient without any marketed maternal or paternal family history including heart disease, diabetes, cancer. Sibling History Items: - - Patient without any marketed maternal or paternal family history including heart disease, diabetes, cancer. Smoking Status: Former smoker Tobacco Use: Cigars, Pipe Alcohol: None Drugs: None Review of Systems - Review of Systems General: Reports: Fatigue. Denies: Fever, Night Sweats Cardiovascular: Denies: Chest Discomfort, Shortness of Breath, Orthopnea, PND, Peripheral Edema, Palpitations, Lightheadedness, Dizziness, Near Syncope, Syncope Respiratory: Denies: Cough, Sputum Production, Hemoptysis Gastrointestinal: Denies: Hematemesis, Hematochezia, Melena Genitourinary: Denies: Dysuria, Hematuria Skin: Denies: Rash Subjectve: Elderly man in no apparent distress lying in bed Objective: Vital Signs Temp Pulse Resp BP Pulse Ox 96 F L 47 L 18 142/72 H 97 06/07/18 17:35 06/07/18 17:36 06/07/18 17:35 06/07/18 17:35 06/07/18 17:35 Oxygen Delivery Method Room Air General: Awake, Alert, Oriented x 3 HEENT: PERRL, EOMI, Sclera Non Icteric Neck: Supple, Good ROM, No Lymph Node Enlargement Lungs: Clear to auscultation Cardiovascular: Regular Rhythm, Normal S1, Normal S2, No Murmurs, No Rubs, No Gallops Vascular: No Carotid Bruits, Normal Femoral Pulses, Normal Radial Pulses, Normal Dorsalis Pedal Pulse, Normal Posterior Tibial Pulses Abdomen: Bowel Sounds Present, Soft, Non Tender, No HSM, No Organomegaly Extremities: No Cyanosis, No Clubbing, No edema Neurological: No Focal Motor or Sensory Deficit Rhythm: EKG: Sinus bradycardia with a rate of 40 bpm ECHO: Stress Test: Cardiac Cath: PCI: CT Surgery: Holter monitor: EPS: PPM: CXR: Chest CT Scan: Assessment/Plan 1. Asymptomatic sinus bradycardia * Patient presents with asymptomatic sinus bradycardia. He is rather somnolent but I do not think that this is due to his heart rate. He recently was in the hospital and underwent a dobutamine echocardiographic exam which demonstrated adequate chronotropic response. He may have residual effects from the amiodarone still on board and I would recommend at this time that the amiodarone be completely discontinued. We will continue to monitor his heart rate. * 2. Paroxysmal atrial fibrillation * Does have a previous history of paroxysmal atrial fibrillation. At this time he is maintaining sinus rhythm. He more than likely has some sick sinus syndrome. Due to the fact that he gets rather bradycardic on the above my recommendation would be for us to discontinue the amiodarone and see what happens to his heart rate. If he goes into atrial fibrillation we can treat him with rate control. * 3. Parkinson's disease I suspect that his masklike facies is likely secondary to his Parkinson's disease which may also be contributing to his fatigue and somnolence. At this time I will defer to the neurologist for the treatment of the above. Thank you for allowing me to participate in the care of your patient. Please don't hesitate to call if any issues arise
[2018-06-07] MEDS: 0.9% Normal Saline 1,000 ML 75 ML IV (18:43)
[2018-06-07] MEDS: Carbidopa/Levodopa 25/100 Tablet PO (19:24)
[2018-06-07] MEDS: Enoxaparin 40 MG/0.4 ML Syringe SC (19:24)
[2018-06-07] MEDS: Levothyroxine 25 MCG TABLET PO (19:25)
[2018-06-07] MEDS: Famotidine 20 MG Tablet PO (21:46)
[2018-06-07] MEDS: Galantamine Hydrobromide 4 MG Tablet 12 MG PO (21:46)
[2018-06-07] MEDS: Memantine Hydrochloride 10 MG Tablet PO (21:46)
[2018-06-07] MEDS: MELATONIN 3 MG TABLET PO (21:47)
[2018-06-07] MEDS: Senna/Docusate Sodium 1 Tablet 2 TABLET PO (21:47)
[2018-06-08] VITALS (10 sets, daily range): BP systolic 101–160; BP diastolic 56–78; PULSE 43–57; RESP 16–18; TEMP 36.1–36.6; O2SAT 95–98
[2018-06-08] MEDS: 0.9% Normal Saline 1,000 ML 75 ML IV (06:56)
[2018-06-08 07:06] LABS: Anion Gap 7 (5-15); BUN 15 mg/dL (7-18); BUN/Creat Ratio 16.1 RATIO (10-20); Calcium,Total 8.7 mg/dL (8.5-10.1); Chloride 105 mmol/L (98-107); Creatinine, Serum 0.93 mg/dL (0.70-1.30); EST Glomerular Filtration Rate 82 mL/min (>60); Est Glom Filt Rate - Afr Amer 99 mL/min (>60); Estimated Creatinine Clearance 66.06 ml/min; Glucose 114 mg/dL (74-106); Potassium 4.5 mmol/L (3.5-5.1); Sodium Level 143 mmol/L (136-145); T4 Free Direct 1.48 ng/dL (0.76-1.46)
[2018-06-08] MEDS: Enoxaparin 40 MG/0.4 ML Syringe SC (09:17)
[2018-06-08] MEDS: Levothyroxine 75 MCG Tablet PO (09:17)
[2018-06-08] MEDS: Carbidopa/Levodopa 25/100 Tablet PO ×3 (09:17→17:23)
[2018-06-08] MEDS: Aspirin E.C. 81 MG Tablet PO (09:17)
[2018-06-08] MEDS: Galantamine Hydrobromide 4 MG Tablet 12 MG PO (09:18)
[2018-06-08] MEDS: Famotidine 20 MG Tablet PO ×2 (09:18→22:23)
[2018-06-08] MEDS: amLODIPine 5 MG Tablet PO (09:18)
[2018-06-08] MEDS: Senna/Docusate Sodium 1 Tablet 2 TABLET PO ×2 (09:18→22:23)
[2018-06-08] MEDS: Memantine Hydrochloride 10 MG Tablet PO ×2 (09:18→22:23)
[2018-06-08] MEDS: Polyethylene Glycol 3350 17 GM PACKET PO (09:23)
--- NOTE | 2018-06-08 11:32 | PCM.PN.CARD ---
Subjectve: Patient seen and evaluated. He appears to be more awake today. His heart rate appears to be better in the 50s and 60s. Objective: Vital Signs Temp Pulse Resp BP Pulse Ox 97.5 F L 46 L 18 160/76 H 95 06/08/18 09:30 06/08/18 11:02 06/08/18 09:30 06/08/18 09:30 06/08/18 09:30 Oxygen Delivery Method Room Air Weight: 195 lb 5.273 oz Body Mass Index (BMI) 26.4 Intake and Output for Last 24 Hours 06/06/18 06/07/18 06/08/18 23:59 23:59 23:59 Intake Total 60 / 60 946 / 946 Output Total 100 / 100 Balance 60 / 60 846 / 846 General: Awake, Alert, Oriented x 3 HEENT: PERRL, EOMI, Sclera Non Icteric Neck: Supple, Good ROM, No Lymph Node Enlargement Lungs: Clear to auscultation Cardiovascular: Regular Rhythm, Normal S1, Normal S2, No Murmurs, No Rubs, No Gallops Vascular: No Carotid Bruits, Normal Femoral Pulses, Normal Radial Pulses, Normal Dorsalis Pedal Pulse, Normal Posterior Tibial Pulses Abdomen: Bowel Sounds Present, Soft, Non Tender, No HSM, No Organomegaly Extremities: No Cyanosis, No Clubbing, No edema Neurological: No Focal Motor or Sensory Deficit 06/08/18 06:05: Sodium 143, Potassium 4.5, Chloride 105, Carbon Dioxide 31.0, Anion Gap 7, BUN 15, Creatinine 0.93, Est GFR (MDRD) Af Amer 99, Est GFR (MDRD) Non-Af 82, BUN/Creatinine Ratio 16.1, Glucose 114 H, Calcium 8.7 Rhythm: EKG: ECHO: Stress Test: Cardiac Cath: PCI: CT Surgery: Holter monitor: EPS: PPM: CXR: Chest CT Scan: Medical Necessity - Tobacco Use Smoking Status: Former smoker Tobacco Use: Cigars, Pipe Assessment/Plan 1. Asymptomatic sinus bradycardia Patient presents with asymptomatic sinus bradycardia. He recently was in the hospital and underwent a dobutamine echocardiographic exam which demonstrated adequate chronotropic response. He may have residual effects from the amiodarone still on board and I would recommend at this time that the amiodarone be completely discontinued. His heart rate appears to be much improved today. We will continue to monitor his heart rate. 2. Paroxysmal atrial fibrillation Does have a previous history of paroxysmal atrial fibrillation. At this time he is maintaining sinus rhythm. He more than likely has some sick sinus syndrome. Due to the fact that he gets rather bradycardic on the above my recommendation would be for us to discontinue the amiodarone and see what happens to his heart rate. If he goes into atrial fibrillation we can treat him with rate control. 3. Parkinson's disease I suspect that his masklike facies is likely secondary to his Parkinson's disease which may also be contributing to his fatigue and somnolence. At this time I will defer to the neurologist for the treatment of the above. He can likely be followed up as an outpatient. Thank you for allowing me to participate in the care of your patient. Please don't hesitate to call if any issues arise
--- NOTE | 2018-06-08 11:38 | PN.CARD_ITS ---
Subjectve: Patient seen and evaluated. He appears to be more awake today. His heart rate appears to be better in the 50s and 60s. Objective: Vital Signs Temp Pulse Resp BP Pulse Ox 97.5 F L 46 L 18 160/76 H 95 06/08/18 09:30 06/08/18 11:02 06/08/18 09:30 06/08/18 09:30 06/08/18 09:30 Oxygen Delivery Method Room Air Weight: 195 lb 5.273 oz Body Mass Index (BMI) 26.4 Intake and Output for Last 24 Hours 06/06/18 06/07/18 06/08/18 23:59 23:59 23:59 Intake Total 60 / 60 946 / 946 Output Total 100 / 100 Balance 60 60 846 / 846 General: Awake, Alert, Oriented x 3 HEENT: PERRL, EOMI, Sclera Non Icteric Neck: Supple, Good ROM, No Lymph Node Enlargement Lungs: Clear to auscultation Cardiovascular: Regular Rhythm, Normal S1, Normal S2, No Murmurs, No Rubs, No Gallops Vascular: No Carotid Bruits, Normal Femoral Pulses, Normal Radial Pulses, Normal Dorsalis Pedal Pulse, Normal Posterior Tibial Pulses Abdomen: Bowel Sounds Present, Soft, Non Tender, No HSM, No Organomegaly Extremities: No Cyanosis, No Clubbing, No edema Neurological: No Focal Motor or Sensory Deficit 06/08/18 06:05: Sodium 143, Potassium 4.5, Chloride 105, Carbon Dioxide 31.0, Anion Gap 7, BUN 15, Creatinine 0.93, Est GFR (MDRD) Af Amer 99, Est GFR (MDRD) Non-Af 82, BUN/Creatinine Ratio 16.1, Glucose 114 H, Calcium 8.7 Rhythm: EKG: ECHO: Stress Test: Cardiac Cath: PCI: CT Surgery: Holter monitor: EPS: PPM: CXR: Chest CT Scan: Medical Necessity - Tobacco Use Smoking Status: Former smoker Tobacco Use: Cigars, Pipe Assessment/Plan 1. Asymptomatic sinus bradycardia * Patient presents with asymptomatic sinus bradycardia. He recently was in the hospital and underwent a dobutamine echocardiographic exam which demonstrated adequate chronotropic response. He may have residual effects from the amiodarone still on board and I would recommend at this time that the amiodarone be completely discontinued. His heart rate appears to be much improved today. We will continue to monitor his heart rate. * 2. Paroxysmal atrial fibrillation * Does have a previous history of paroxysmal atrial fibrillation. At this time he is maintaining sinus rhythm. He more than likely has some sick sinus syndrome. Due to the fact that he gets rather bradycardic on the above my recommendation would be for us to discontinue the amiodarone and see what happens to his heart rate. If he goes into atrial fibrillation we can treat him with rate control. * 3. Parkinson's disease I suspect that his masklike facies is likely secondary to his Parkinson's disease which may also be contributing to his fatigue and somnolence. At this time I will defer to the neurologist for the treatment of the above. He can likely be followed up as an outpatient. Thank you for allowing me to participate in the care of your patient. Please don't hesitate to call if any issues arise
--- NOTE | 2018-06-08 12:20 | PCM.PN.HOSP ---
Subjective: Patient heart rate is in 50s today. Yesterday was in 40s. Patient's family has concern of recurrent admission and discomfort associated with transfer. Patient also has poor oral intake, masslike facies and gradually going downhill in view of Alzheimer's dementia, Parkinson disease and low functional capacity. Patient is DNR CC arrest. Wanted palliative care to help in making further decision regarding hospice. Seen by director medic[employer] sales Dr. ryder and appreciated. Vitals/I&O's: Vital Signs Temp Pulse Resp BP Pulse Ox 97.5 F L 46 L 18 160/76 H 95 06/08/18 09:30 06/08/18 11:02 06/08/18 09:30 06/08/18 09:30 06/08/18 09:30 Oxygen Delivery Method Room Air Weight: 195 lb 5.273 oz Body Mass Index (BMI) 26.4 Intake and Output for Last 24 Hours 06/06/18 06/07/18 06/08/18 23:59 23:59 23:59 Intake Total 60 / 60 1504 / 1504 Output Total 100 / 100 Balance 60 / 60 1404 / 1404 General: Alert, Oriented x3, Cooperative HEENT: Atraumatic, PERRLA, EOMI, Normocephalic Neck: Supple, No JVD, Negative Carotid Bruits Lungs: No rhonchi, No wheeze, Diminished Cardiovascular: Regular Rhythm, Normal S1, Normal S2, No murmurs, Bradycardic Abdomen: Bowel Sounds Present, Soft, Non Tender, Non-Distended Extremities: Capillary Refill Less than 3 Seconds, Edema Skin: No rashes, No breakdown Musculoskeletal: No Tenderness to Palpation of Joints or Extremities Neurological: Cranial nerves II-XII grossly intact Psych/Mental Status: Normal Affect, Appropriate Laboratory Results 06/08/18 06:05: Sodium 143, Potassium 4.5, Chloride 105, Carbon Dioxide 31.0, Anion Gap 7, BUN 15, Creatinine 0.93, Estim Creat Clear Calc 66.06, Est GFR (MDRD) Af Amer 99, Est GFR (MDRD) Non-Af 82, BUN/Creatinine Ratio 16.1, Glucose 114 H, Calcium 8.7, Free T4 1.48 H Current Medications Albuterol/Ipratropium (Duoneb) 3 ml INHALATION Q6H PRN PRN PRN Reason: SOB &/OR WHEEZING Amlodipine Besylate (Norvasc) 5 mg PO DAILY [facility] Last Admin: 06/08/18 09:18 Dose: 5 mg Aspirin (Ecotrin) 81 mg PO DAILY [facility] Last Admin: 06/08/18 09:17 Dose: 81 mg Bisacodyl (Dulcolax) 5 mg PO DAILY PRN PRN PRN Reason: severe Constipation Carbidopa/Levodopa (Sinemet) 1 tablet PO TIDPC [facility] Last Admin: 06/08/18 09:17 Dose: 1 tablet Enoxaparin Sodium (Lovenox) 40 mg SC DAILY@1000 [facility] Last Admin: 06/08/18 09:17 Dose: 40 mg Famotidine (Pepcid) 20 mg PO BID [facility] Last Admin: 06/08/18 09:18 Dose: 20 mg Galantamine Hydrobromide (Razadyne) 12 mg PO BID [facility] Last Admin: 06/08/18 09:18 Dose: 12 mg Sodium Chloride () 1,000 mls @ 75 mls/hr IV .[id number] [facility] Last Admin: 06/08/18 06:56 Dose: 75 mls/hr Lactobacillus Acidophilus (Acidophilus) 1 tablet PO DAILY [facility] Last Admin: 06/08/18 09:17 Dose: 1 tablet Levothyroxine Sodium (Synthroid) 75 mcg PO DAILY@0600 [facility] Last Admin: 06/08/18 09:17 Dose: 75 mcg Magnesium Hydroxide (Milk Of Magnesia) 30 ml PO DAILY PRN PRN Reason: Constipation Melatonin (Melatonin) 3 mg PO QHS PRN PRN Reason: Insomnia Last Admin: 06/07/18 21:47 Dose: 3 mg Memantine (Namenda) 10 mg PO BID [facility] Last Admin: 06/08/18 09:18 Dose: 10 mg Polyethylene Glycol (Miralax) 17 gm PO DAILY [facility] Last Admin: 06/08/18 09:23 Dose: 17 gm Psyllium Hydrophilic Mucilloid (Metamucil) 1 packet PO DAILY PRN PRN PRN Reason: CONSTIPATION Senna/Docusate Sodium (Senokot-S, Blanca-Colace) 2 tablet PO BID [facility] Last Admin: 06/08/18 09:18 Dose: 2 tablet Sodium Chloride () 5 - 30 ml IV UD PRN PRN Reason: SALINE FLUSH Trazodone HCl (Desyrel) 50 mg PO QHS PRN PRN Reason: Insomnia/agitation Medical Necessity - Tobacco Use Smoking Status: Former smoker Tobacco Use: Cigars, Pipe Assessment/Plan All Active Problems (Last Updated 06/06/18 @ 14:09 by Henrik Patel NP-C) Septic shock (Resolved) HCAP (healthcare-associated pneumonia) (Resolved) UTI (urinary tract infection) (Resolved) ALYSSA (acute kidney injury) (Resolved) Hyperkalemia (Resolved) Lactic acidosis (Resolved) Bradycardia (Acute) Hypothermia (Resolved) Hypomagnesemia (Resolved) Atherosclerosis of coronary artery of [place] heart without angina pectoris (Ruled-out) The patient is a 82 year old M was discharged on 06/03/2018 when he was admitted for bradycardia along with hypothermia. Prior to that he was in the ICU for septic shock secondary to healthcare associated pneumonia and complicated UTI, acute kidney injury and bradycardia along with hyponatremia and hyperkalemia and hypothermia was sent to ER from [facility] for bradycardia and lethargic, and somnolent. His levothyroxine dose increased to 50 mcg from 25 last time. Patient is also on trazodone, vitamin memantine and galantamine. This time, he did not have hypothermia. Temperature was 96.3 Fahrenheit. In ED, heart rate in 40s. As per the EMS, his heart rate was in 40s. EKG shows marked sinus bradycardia with first-degree AV block and RBBB. Patient could not give history himself and has blank look secondary to Alzheimer's dementia, Parkinson Parkinson's disease. His TSH level has been slowly improving, first one 8.64, 7.82 and then 4.8. Free T4 1.17 and then 1.50. 1. Marked sinus bradycardia, probably clinically hypothyroidism or effect of amiodarone: Patient is being admitted on PCU for further monitoring. Troponin is negative. Amiodarone is discontinued. Increase Synthroid to [address] Ryder. Patient recently had a dobutamine echocardiogram showed LV function normal, EF 65%. Negative for ischemia. No anginal symptoms during the stress test. During a stress test, he had transient A. fib which reverted back to normal sinus rhythm by the end of the procedure. Excellent chronotropic response to dobutamine. There is suspicion that patient might have sick sinus syndrome as baseline. 2. Poor functional capacity with adult failure to thrive: Lethargy/sleepiness, suggestive of acute encephalopathy probably from polypharmacy: Hold sleeping medications including trazodone, galantamine and memantine. Discussed with the patient's and daughter in detail. On IV fluid D5W nutritional support. Patient is DNR CC arrest. Wanted palliative care to help in making further decision regarding hospice. 3. Possible clinically hypothyroidism: Although biochemically seems euthyroid, free T4 1.5, TSH 4.88 but patient is bradycardic, slow, lazy, constipated, somnolent which might be multifactorial due to polypharmacy too. Repeat free T4 1.48. cortisol level was normal 20 micrograms per deciliter on 06/01/2018. Synthroid increased to 75 mcg daily. 4. Recent admission for healthcare acid pneumonia, UTI, hypothermia and hyperkalemia: Has been corrected. Resolved Other chronic comorbidities include Parkinson's disease, paroxysmal A. fib; not on anticoagulant, hypertension, Alzheimer's dementia, insomnia and low functional capacity: Home medication reconciliation done. DVT prophylaxis: On Lovenox 40 milligrams subcut daily Advanced directive: Patient is DNR CC arrest. Discussed with the patient's and daughter in detail. On IV fluid D5W half NS for nutritional support. She has poor oral intake. I discussed in detail regarding poor functional capacity, poor oral intake, recurrent admission in view of her edematous dementia and Parkinson's disease. Folic acid, B12 and vitamin D ordered. [id number] encounter time spent in discussion regarding advanced directive total of 20 minutes Currently, patient is DNR CC arrest. Wanted palliative care to help in making further decision regarding hospice. Code Visit Inpatient E&M: 38886 Subs Hosp L2 Procedures: 38308 Advncd Care Plan 30 Min
--- NOTE | 2018-06-08 12:29 | PN_ITS ---
Subjective: Patient heart rate is in 50s today. Yesterday was in 40s. Patient's family has concern of recurrent admission and discomfort associated with transfer. Patient also has poor oral intake, masslike facies and gradually going downhill in view of Alzheimer's dementia, Parkinson disease and low functional capacity. Patient is DNR CC arrest. Wanted palliative care to help in making further decision regarding hospice. Seen by pitch worker Dr. ryder and appreciated. Vitals/I&O's: Vital Signs Temp Pulse Resp BP Pulse Ox 97.5 F L 46 L 18 160/76 H 95 06/08/18 09:30 06/08/18 11:02 06/08/18 09:30 06/08/18 09:30 06/08/18 09:30 Oxygen Delivery Method Room Air Weight: 195 lb 5.273 oz Body Mass Index (BMI) 26.4 Intake and Output for Last 24 Hours 06/06/18 06/07/18 06/08/18 23:59 23:59 23:59 Intake Total 60 / 60 1504 / 1504 Output Total 100 / 100 Balance 60 / 60 1404 / 1404 General: Alert, Oriented x3, Cooperative HEENT: Atraumatic, PERRLA, EOMI, Normocephalic Neck: Supple, No JVD, Negative Carotid Bruits Lungs: No rhonchi, No wheeze, Diminished Cardiovascular: Regular Rhythm, Normal S1, Normal S2, No murmurs, Bradycardic Abdomen: Bowel Sounds Present, Soft, Non Tender, Non-Distended Extremities: Capillary Refill Less than 3 Seconds, Edema Skin: No rashes, No breakdown Musculoskeletal: No Tenderness to Palpation of Joints or Extremities Neurological: Cranial nerves II-XII grossly intact Psych/Mental Status: Normal Affect, Appropriate Laboratory Results 06/08/18 06:05: Sodium 143, Potassium 4.5, Chloride 105, Carbon Dioxide 31.0, Anion Gap 7, BUN 15, Creatinine 0.93, Estim Creat Clear Calc 66.06, Est GFR ( MDRD) Af Amer 99, Est GFR (MDRD) Non-Af 82, BUN/Creatinine Ratio 16.1, Glucose 114 H, Calcium 8.7, Free T4 1.48 H Current Medications Albuterol/Ipratropium (Duoneb) 3 ml INHALATION Q6H PRN PRN PRN Reason: SOB &/OR WHEEZING Amlodipine Besylate (Norvasc) 5 mg PO DAILY [facility] Last Admin: 06/08/18 09:18 Dose: 5 mg Aspirin (Ecotrin) 81 mg PO DAILY [facility] Last Admin: 06/08/18 09:17 Dose: 81 mg Bisacodyl (Dulcolax) 5 mg PO DAILY PRN PRN PRN Reason: severe Constipation Carbidopa/Levodopa (Sinemet) 1 tablet PO TIDPC [facility] Last Admin: 06/08/18 09:17 Dose: 1 tablet Enoxaparin Sodium (Lovenox) 40 mg SC DAILY@1000 [facility] Last Admin: 06/08/18 09:17 Dose: 40 mg Famotidine (Pepcid) 20 mg PO BID [facility] Last Admin: 06/08/18 09:18 Dose: 20 mg Galantamine Hydrobromide (Razadyne) 12 mg PO BID [facility] Last Admin: 06/08/18 09:18 Dose: 12 mg Sodium Chloride () 1,000 mls @ 75 mls/hr IV .[id number] [facility] Last Admin: 06/08/18 06:56 Dose: 75 mls/hr Lactobacillus Acidophilus (Acidophilus) 1 tablet PO DAILY [facility] Last Admin: 06/08/18 09:17 Dose: 1 tablet Levothyroxine Sodium (Synthroid) 75 mcg PO DAILY@0600 [facility] Last Admin: 06/08/18 09:17 Dose: 75 mcg Magnesium Hydroxide (Milk Of Magnesia) 30 ml PO DAILY PRN PRN Reason: Constipation Melatonin (Melatonin) 3 mg PO QHS PRN PRN Reason: Insomnia Last Admin: 06/07/18 21:47 Dose: 3 mg Memantine (Namenda) 10 mg PO BID [facility] Last Admin: 06/08/18 09:18 Dose: 10 mg Polyethylene Glycol (Miralax) 17 gm PO DAILY [facility] Last Admin: 06/08/18 09:23 Dose: 17 gm Psyllium Hydrophilic Mucilloid (Metamucil) 1 packet PO DAILY PRN PRN PRN Reason: CONSTIPATION Senna/Docusate Sodium (Senokot-S, Blanca-Colace) 2 tablet PO BID [facility] Last Admin: 06/08/18 09:18 Dose: 2 tablet Sodium Chloride () 5 - 30 ml IV UD PRN PRN Reason: SALINE FLUSH Trazodone HCl (Desyrel) 50 mg PO QHS PRN PRN Reason: Insomnia/agitation Medical Necessity - Tobacco Use Smoking Status: Former smoker Tobacco Use: Cigars, Pipe Assessment/Plan All Active Problems (Last Updated 06/06/18 @ 14:09 by Henrik Patel NP-C) Septic shock (Resolved) HCAP (healthcare-associated pneumonia) (Resolved) UTI (urinary tract infection) (Resolved) ALYSSA (acute kidney injury) (Resolved) Hyperkalemia (Resolved) Lactic acidosis (Resolved) Bradycardia (Acute) Hypothermia (Resolved) Hypomagnesemia (Resolved) Atherosclerosis of coronary artery of [place] heart without angina pectoris ( Ruled-out) The patient is a 82 year old M was discharged on 06/03/2018 when he was admitted for bradycardia along with hypothermia. Prior to that he was in the ICU for septic shock secondary to healthcare associated pneumonia and complicated UTI, acute kidney injury and bradycardia along with hyponatremia and hyperkalemia and hypothermia was sent to ER from [facility] for bradycardia and lethargic, and somnolent. His levothyroxine dose increased to 50 mcg from 25 last time. Patient is also on trazodone, vitamin memantine and galantamine. This time, he did not have hypothermia. Temperature was 96.3 Fahrenheit. In ED , heart rate in 40s. As per the EMS, his heart rate was in 40s. EKG shows marked sinus bradycardia with first-degree AV block and RBBB. Patient could not give history himself and has blank look secondary to Alzheimer 's dementia, Parkinson Parkinson's disease. His TSH level has been slowly improving, first one 8.64, 7.82 and then 4.8. Free T4 1.17 and then 1.50. 1. Marked sinus bradycardia, probably clinically hypothyroidism or effect of amiodarone: Patient is being admitted on PCU for further monitoring. Troponin is negative. Amiodarone is discontinued. Increase Synthroid to [address] Ryder. Patient recently had a dobutamine echocardiogram showed LV function normal, EF 65%. Negative for ischemia. No anginal symptoms during the stress test. During a stress test, he had transient A. fib which reverted back to normal sinus rhythm by the end of the procedure. Excellent chronotropic response to dobutamine. There is suspicion that patient might have sick sinus syndrome as baseline. 2. Poor functional capacity with adult failure to thrive: Lethargy/sleepiness, suggestive of acute encephalopathy probably from polypharmacy: Hold sleeping medications including trazodone, galantamine and memantine. Discussed with the patient's and daughter in detail. On IV fluid D5W nutritional support. Patient is DNR CC arrest. Wanted palliative care to help in making further decision regarding hospice. 3. Possible clinically hypothyroidism: Although biochemically seems euthyroid, free T4 1.5, TSH 4.88 but patient is bradycardic, slow, lazy, constipated, somnolent which might be multifactorial due to polypharmacy too. Repeat free T4 1.48. cortisol level was normal 20 micrograms per deciliter on 06/01/2018. Synthroid increased to 75 mcg daily. 4. Recent admission for healthcare acid pneumonia, UTI, hypothermia and hyperkalemia: Has been corrected. Resolved Other chronic comorbidities include Parkinson's disease, paroxysmal A. fib; not on anticoagulant, hypertension, Alzheimer's dementia, insomnia and low functional capacity: Home medication reconciliation done. DVT prophylaxis: On Lovenox 40 milligrams subcut daily Advanced directive: Patient is DNR CC arrest. Discussed with the patient's and daughter in detail. On IV fluid D5W half NS for nutritional support. She has poor oral intake. I discussed in detail regarding poor functional capacity , poor oral intake, recurrent admission in view of her edematous dementia and Parkinson's disease. Folic acid, B12 and vitamin D ordered. [id number]-[id number] encounter time spent in discussion regarding advanced directive total of 20 minutes Currently, patient is DNR CC arrest. Wanted palliative care to help in making further decision regarding hospice. Code Visit Inpatient E&M: 88675 Subs Hosp L2 Procedures: 87460 Advncd Care Plan 30 Min
[2018-06-08] MEDS: Dext 5%-0.45% NS 1,000 ML 50 ML IV (13:18)
--- NOTE | 2018-06-08 15:44 | CASEMGMT ---
SOCIAL WORK: ER social work documentation reviewed. Plan is for return to [facility] when medically ready. SW will need to confirm plan with [facility] prior to patient return. RAMA Caba
[2018-06-08] MEDS: MELATONIN 3 MG TABLET PO (22:23)
[2018-06-08] MEDS: traZODone 50 MG Tablet PO (23:54)
--- NOTE | 2018-06-08 23:56 | NURSING ---
CALLED [facility] PATIENT'S DUE TO HIM BEING AGITATED AND WANTING TO CLIMB OUT OF BED. UPDATED ABOUT POC.
[2018-06-09] VITALS (11 sets, daily range): BP systolic 139–157; BP diastolic 63–75; PULSE 41–66; RESP 16–18; TEMP 36.3–36.6; O2SAT 94–98
--- NOTE | 2018-06-09 00:45 | NURSING ---
PATIENT MOVED TO ROOM 129 DUE TO AGITATED AND TRYING TO GET OUT OF BED.
[2018-06-09] MEDS: Dext 5%-0.45% NS 1,000 ML 50 ML IV ×2 (06:05→21:23)
[2018-06-09 06:28] LABS: Absolute Lymphocyte Count 1.15 X10^3/ul (0.83-4.51); Absolute Neutrophil Count 5.9 X10^3/uL (2.0-7.7); Basophil# 0.02 X10^3/uL; Basophil% 0.3 % (0-1); Eosinophil# 0.26 X10^3/uL; Eosinophils% 3.3 % (0-5); Hematocrit 32.3 % (40-54); Hemoglobin 10.4 g/dl (13.0-16.5); Lymphocyte # 1.15 X10^3/ul (4.0); Lymphocyte % 14.6 % (19-41); Mean Corp Hgb Conc 32.2 g/gl (32-36); Mean Corpuscular Hgb 30.4 pg (27.0-32.0); Mean Corpuscular Volume 94.4 fL (80-94); Mean Platelet Vol. 10.9 fl (6.2-12.0); Monocyte# 0.52 X10^3/uL; Monocyte% 6.6 % (0-10); Neutrophil # 5.87 X10^3/uL (2.7-7.7); Neutrophil % 74.7 % (47-70); Platelet Count 154 K/mm3 (150-450); RBC Distribution Width CV 17.6 % (11.6-14.6); RBC Distribution Width SD 59.3 fl (35.1-43.9); Red Blood Count 3.42 M/mm3 (4.6-6.2); White Blood Count 7.9 K/mm3 (4.4-11.0)
--- NOTE | 2018-06-09 06:28 | NURSING ---
SPOKE TO ISABELLE, UPDATED ABOUT NIGHT, EXPLAINED MOVED PATIENT CLOSER TO NURSING STATION TO ROOM 129
[2018-06-09 06:29] LABS: POSITIVE COUNT NO; POSITIVE DIFFERENTIAL NO; POSITIVE MORPHOLOGY NO
--- NOTE | 2018-06-09 08:29 | PN.CARD_ITS ---
Subjectve: Patient seen and evaluated. Appears to be slightly more alert today. Objective: Vital Signs Temp Pulse Resp BP Pulse Ox 97.9 F 44 L 16 139/70 H 94 06/09/18 03:30 06/09/18 07:18 06/09/18 03:30 06/09/18 03:30 06/09/18 03:30 Oxygen Delivery Method Room Air Weight: 195 lb 5.273 oz Body Mass Index (BMI) 26.4 Intake and Output for Last 24 Hours 06/07/18 06/08/18 06/09/18 23:59 23:59 23:59 Intake Total 60 / 60 2052 827 / 827 Output Total 100 / 100 Balance 60 / 60 1952 827 / 827 General: Awake, Alert, Oriented x 3 HEENT: PERRL, EOMI, Sclera Non Icteric Neck: Supple, Good ROM, No Lymph Node Enlargement Lungs: Clear to auscultation Cardiovascular: Regular Rhythm, Normal S1, Normal S2, No Murmurs, No Rubs, No Gallops Vascular: No Carotid Bruits, Normal Femoral Pulses, Normal Radial Pulses, Normal Dorsalis Pedal Pulse, Normal Posterior Tibial Pulses Abdomen: Bowel Sounds Present, Soft, Non Tender, No HSM, No Organomegaly Extremities: No Cyanosis, No Clubbing, No edema Neurological: No Focal Motor or Sensory Deficit 06/09/18 05:40: WBC 7.9, RBC 3.42 L, Hgb 10.4 L, Hct 32.3 L, MCV 94.4 H, MCH 30.4, MCHC 32.2, RDW 17.6 H, RDW Differential 59.3 H, Plt Count 154, MPV 10.9, Immature Gran % (Auto) 0.500, Neut % (Auto) 74.7 H, Lymph % (Auto) 14.6 L, Brooke % (Auto) 6.6, Eos % (Auto) 3.3, Baso % (Auto) 0.3, Absolute Neuts (auto) 5.9, Total Counted Not Reportable Rhythm: EKG: ECHO: Stress Test: Cardiac Cath: PCI: CT Surgery: Holter monitor: EPS: PPM: CXR: Chest CT Scan: Medical Necessity - Tobacco Use Smoking Status: Former smoker Tobacco Use: Cigars, Pipe Assessment/Plan 1. Asymptomatic sinus bradycardia * Patient presents with asymptomatic sinus bradycardia. He recently was in the hospital and underwent a dobutamine echocardiographic exam which demonstrated adequate chronotropic response. He may have residual effects from the amiodarone still on board and I would recommend at this time that the amiodarone be completely discontinued. His heart rate appears to be much improved today. We will continue to monitor his heart rate. * At this juncture I would not recommend any further intervention 2. Paroxysmal atrial fibrillation * Does have a previous history of paroxysmal atrial fibrillation. At this time he is maintaining sinus rhythm. He more than likely has some sick sinus syndrome. Due to the fact that he gets rather bradycardic on the above my recommendation would be for us to discontinue the amiodarone and see what happens to his heart rate. If he goes into atrial fibrillation we can treat him with rate control. * 3. Parkinson's disease I suspect that his masklike facies is likely secondary to his Parkinson's disease which may also be contributing to his fatigue and somnolence. At this time I will defer to the neurologist for the treatment of the above. He can likely be followed up as an outpatient. Thank you for allowing me to participate in the care of your patient. Please don't hesitate to call if any issues arise
[2018-06-09] MEDS: Carbidopa/Levodopa 25/100 Tablet PO ×3 (09:17→16:59)
[2018-06-09] MEDS: Aspirin E.C. 81 MG Tablet PO (09:17)
[2018-06-09] MEDS: amLODIPine 5 MG Tablet PO (09:18)
[2018-06-09] MEDS: Enoxaparin 40 MG/0.4 ML Syringe SC (09:18)
[2018-06-09] MEDS: Famotidine 20 MG Tablet PO ×2 (09:18→21:24)
[2018-06-09] MEDS: Memantine Hydrochloride 10 MG Tablet PO ×2 (09:18→21:25)
[2018-06-09] MEDS: Senna/Docusate Sodium 1 Tablet 2 TABLET PO (09:19)
[2018-06-09] MEDS: Polyethylene Glycol 3350 17 GM PACKET PO (13:48)
--- NOTE | 2018-06-09 16:52 | PCM.PN.HOSP ---
Subjective: Patient is sitting in the chair. Patient is mostly nonverbal. Has advanced Alzheimer's dementia and Parkinson disease. Mask facies. Heart rate in 40s and upper 50s. Objective: General: Alert, Cooperative; difficult for orientation as patient does not speak. Follow simple commands. HEENT: Atraumatic, PERRLA, EOMI, Normocephalic Neck: Supple, No JVD, Negative Carotid Bruits Lungs: No rhonchi, No wheeze, Diminished Cardiovascular: Regular Rhythm, Normal S1, Normal S2, No murmurs, Bradycardic Abdomen: Bowel Sounds Present, Soft, Non Tender, Non-Distended Extremities: Capillary Refill Less than 3 Seconds, Edema Skin: No rashes, No breakdown Musculoskeletal: No Tenderness to Palpation of Joints or Extremities Neurological: Cranial nerves II-XII grossly intact Psych/Mental Status: Normal Affect, Appropriate Vitals/I&O's: Vital Signs Temp Pulse Resp BP Pulse Ox 97.9 F 53 L 16 153/72 H 95 06/09/18 15:01 06/09/18 15:01 06/09/18 15:01 06/09/18 15:01 06/09/18 15:01 Oxygen Delivery Method Room Air Weight: 195 lb 5.273 oz Body Mass Index (BMI) 26.4 Intake and Output for Last 24 Hours 06/07/18 06/08/18 06/09/18 23:59 23:59 23:59 Intake Total 60 / 60 2052 / 2052 1282 / 1282 Output Total 100 / 100 Balance 60 / 60 1952 / 1952 1282 / 1282 Laboratory Results 06/09/18 05:40: WBC 7.9, RBC 3.42 L, Hgb 10.4 L, Hct 32.3 L, MCV 94.4 H, MCH 30.4, MCHC 32.2, RDW 17.6 H, RDW Differential 59.3 H, Plt Count 154, MPV 10.9, Immature Gran % (Auto) 0.500, Neut % (Auto) 74.7 H, Lymph % (Auto) 14.6 L, [place] % (Auto) 6.6, Eos % (Auto) 3.3, Baso % (Auto) 0.3, Absolute Neuts (auto) 5.9, Absolute Lymphs (auto) 1.15, Total Counted Not Reportable 06/09/18 05:40: Vitamin B12 Pending, Vitamin D 25-Hydroxy Pending 06/09/18 05:40: Folate 7.60 Current Medications Albuterol/Ipratropium (Duoneb) 3 ml INHALATION Q6H PRN PRN PRN Reason: SOB &/OR WHEEZING Amlodipine Besylate (Norvasc) 5 mg PO DAILY [facility] Last Admin: 06/09/18 09:18 Dose: 5 mg Aspirin (Ecotrin) 81 mg PO DAILY [facility] Last Admin: 06/09/18 09:17 Dose: 81 mg Bisacodyl (Dulcolax) 5 mg PO DAILY PRN PRN PRN Reason: severe Constipation Carbidopa/Levodopa (Sinemet) 1 tablet PO TIDPC [facility] Last Admin: 06/09/18 13:48 Dose: 1 tablet Enoxaparin Sodium (Lovenox) 40 mg SC DAILY@1000 [facility] Last Admin: 06/09/18 09:18 Dose: 40 mg Famotidine (Pepcid) 20 mg PO BID [facility] Last Admin: 06/09/18 09:18 Dose: 20 mg Dextrose/Sodium Chloride () 1,000 mls @ 50 mls/hr IV .Q20H [facility] Last Admin: 06/09/18 06:05 Dose: 50 mls/hr Lactobacillus Acidophilus (Acidophilus) 1 tablet PO DAILY [facility] Last Admin: 06/09/18 09:17 Dose: 1 tablet Levothyroxine Sodium (Synthroid) 75 mcg PO DAILY@0600 [facility] Last Admin: 06/09/18 06:25 Dose: Not Given Magnesium Hydroxide (Milk Of Magnesia) 30 ml PO DAILY PRN PRN Reason: Constipation Melatonin (Melatonin) 3 mg PO QHS PRN PRN Reason: Insomnia Last Admin: 06/08/18 22:23 Dose: 3 mg Memantine (Namenda) 10 mg PO BID [facility] Last Admin: 06/09/18 09:18 Dose: 10 mg Nutritional Formula (Lactose Free) (Ensure Enlive) 120 ml PO 4X/DAY [facility] Last Admin: 06/09/18 13:52 Dose: Not Given Polyethylene Glycol (Miralax) 17 gm PO DAILY [facility] Last Admin: 06/09/18 13:48 Dose: 17 gm Psyllium Hydrophilic Mucilloid (Metamucil) 1 packet PO DAILY PRN PRN PRN Reason: CONSTIPATION Senna/Docusate Sodium (Senokot-S, Blanca-Colace) 2 tablet PO BID [facility] Last Admin: 06/09/18 09:19 Dose: 2 tablet Sodium Chloride () 5 - 30 ml IV UD PRN PRN Reason: SALINE FLUSH Trazodone HCl (Desyrel) 50 mg PO QHS PRN PRN Reason: Insomnia/agitation Last Admin: 06/08/18 23:54 Dose: 50 mg Medical Necessity - Tobacco Use Smoking Status: Former smoker Tobacco Use: Cigars, Pipe Assessment/Plan All Active Problems (Last Updated 06/06/18 @ 14:09 by Henrik Patel NP-C) Septic shock (Resolved) HCAP (healthcare-associated pneumonia) (Resolved) UTI (urinary tract infection) (Resolved) ALYSSA (acute kidney injury) (Resolved) Hyperkalemia (Resolved) Lactic acidosis (Resolved) Bradycardia (Acute) Hypothermia (Resolved) Hypomagnesemia (Resolved) Atherosclerosis of coronary artery of [place] heart without angina pectoris (Ruled-out) The patient is a 82 year old M was discharged on 06/03/2018 when he was admitted for bradycardia along with hypothermia. Prior to that he was in the ICU for septic shock secondary to healthcare associated pneumonia and complicated UTI, acute kidney injury and bradycardia along with hyponatremia and hyperkalemia and hypothermia was sent to ER from [facility] for bradycardia and lethargic, and somnolent. His levothyroxine dose increased to 50 mcg from 25 last time. Patient is also on trazodone, vitamin memantine and galantamine. This time, he did not have hypothermia. Temperature was 96.3 Fahrenheit. In ED, heart rate in 40s. As per the EMS, his heart rate was in 40s. EKG shows marked sinus bradycardia with first-degree AV block and RBBB. Patient could not give history himself and has blank look secondary to Alzheimer's dementia, Parkinson Parkinson's disease. His TSH level has been slowly improving, first one 8.64, 7.82 and then 4.8. Free T4 1.17 and then 1.50. 1. Marked sinus bradycardia, probably clinically hypothyroidism or effect of amiodarone and galantamine: Patient is being admitted on PCU for further monitoring. Troponin is negative. Amiodarone is discontinued. Increase Synthroid to [address] Acuna. Patient recently had a dobutamine echocardiogram showed LV function normal, EF 65%. Negative for ischemia. No anginal symptoms during the stress test. During a stress test, he had transient A. fib which reverted back to normal sinus rhythm by the end of the procedure. Excellent chronotropic response to dobutamine. Galantamine was discontinued. There is improvement on heart rate. There is suspicion that patient might have sick sinus syndrome as baseline. 2. Poor functional capacity with adult failure to thrive: Lethargy/sleepiness, suggestive of acute encephalopathy probably from polypharmacy: Hold sleeping medications including trazodone, galantamine and memantine. Discussed with the patient's and daughter in detail. On IV fluid D5W nutritional support. Patient is DNR CC arrest. Wanted palliative care to help in making further decision regarding hospice. 3. Possible clinically hypothyroidism: Although biochemically seems euthyroid, free T4 1.5, TSH 4.88 but patient is bradycardic, slow, lazy, constipated, somnolent which might be multifactorial due to polypharmacy too. Repeat free T4 1.48. cortisol level was normal 20 micrograms per deciliter on 06/01/2018. Synthroid increased to 75 mcg daily. 4. Recent admission for healthcare acid pneumonia, UTI, hypothermia and hyperkalemia: Has been corrected. Resolved Other chronic comorbidities include Parkinson's disease, paroxysmal A. fib; not on anticoagulant, hypertension, Alzheimer's dementia, insomnia and low functional capacity: Home medication reconciliation done. DVT prophylaxis: On Lovenox 40 milligrams subcut daily. There is slight decrease in hemoglobin from 11.2-10.4. A further decrease in hemoglobin can discontinue Lovenox. Advanced directive: Patient is DNR CC arrest. Discussed with the patient's and daughter in detail. On IV fluid D5W half NS for nutritional support. She has poor oral intake. I discussed in detail regarding poor functional capacity, poor oral intake, recurrent admission in view of her edematous dementia and Parkinson's disease. Folate 7.6. B12 and vitamin D are pending Currently, patient is DNR CC arrest. Wanted palliative care to help in making further decision regarding hospice. Code Visit Inpatient E&M: 61736 Subs Hosp L2
--- NOTE | 2018-06-09 16:56 | PN_ITS ---
Subjective: Patient is sitting in the chair. Patient is mostly nonverbal. Has advanced Alzheimer's dementia and Parkinson disease. Mask facies. Heart rate in 40s and upper 50s. Objective: General: Alert, Cooperative; difficult for orientation as patient does not speak. Follow simple commands. HEENT: Atraumatic, PERRLA, EOMI, Normocephalic Neck: Supple, No JVD, Negative Carotid Bruits Lungs: No rhonchi, No wheeze, Diminished Cardiovascular: Regular Rhythm, Normal S1, Normal S2, No murmurs, Bradycardic Abdomen: Bowel Sounds Present, Soft, Non Tender, Non-Distended Extremities: Capillary Refill Less than 3 Seconds, Edema Skin: No rashes, No breakdown Musculoskeletal: No Tenderness to Palpation of Joints or Extremities Neurological: Cranial nerves II-XII grossly intact Psych/Mental Status: Normal Affect, Appropriate Vitals/I&O's: Vital Signs Temp Pulse Resp BP Pulse Ox 97.9 F 53 L 16 153/72 H 95 06/09/18 15:01 06/09/18 15:01 06/09/18 15:01 06/09/18 15:01 06/09/18 15:01 Oxygen Delivery Method Room Air Weight: 195 lb 5.273 oz Body Mass Index (BMI) 26.4 Intake and Output for Last 24 Hours 06/07/18 06/08/18 06/09/18 23:59 23:59 23:59 Intake Total 60 / 60 2052 / 2052 1282 / 1282 Output Total 100 / 100 Balance 60 / 60 1952 / 1952 1282 / 1282 Laboratory Results 06/09/18 05:40: WBC 7.9, RBC 3.42 L, Hgb 10.4 L, Hct 32.3 L, MCV 94.4 H, MCH 30.4, MCHC 32.2, RDW 17.6 H, RDW Differential 59.3 H, Plt Count 154, MPV 10.9, Immature Gran % (Auto) 0.500, Neut % (Auto) 74.7 H, Lymph % (Auto) 14.6 L, [place] % (Auto) 6.6, Eos % (Auto) 3.3, Baso % (Auto) 0.3, Absolute Neuts (auto) 5.9, Absolute Lymphs (auto) 1.15, Total Counted Not Reportable 06/09/18 05:40: Vitamin B12 Pending, Vitamin D 25-Hydroxy Pending 06/09/18 05:40: Folate 7.60 Current Medications Albuterol/Ipratropium (Duoneb) 3 ml INHALATION Q6H PRN PRN PRN Reason: SOB &/OR WHEEZING Amlodipine Besylate (Norvasc) 5 mg PO DAILY [facility] Last Admin: 06/09/18 09:18 Dose: 5 mg Aspirin (Ecotrin) 81 mg PO DAILY [facility] Last Admin: 06/09/18 09:17 Dose: 81 mg Bisacodyl (Dulcolax) 5 mg PO DAILY PRN PRN PRN Reason: severe Constipation Carbidopa/Levodopa (Sinemet) 1 tablet PO TIDPC [facility] Last Admin: 06/09/18 13:48 Dose: 1 tablet Enoxaparin Sodium (Lovenox) 40 mg SC DAILY@1000 [facility] Last Admin: 06/09/18 09:18 Dose: 40 mg Famotidine (Pepcid) 20 mg PO BID [facility] Last Admin: 06/09/18 09:18 Dose: 20 mg Dextrose/Sodium Chloride () 1,000 mls @ 50 mls/hr IV .Q20H [facility] Last Admin: 06/09/18 06:05 Dose: 50 mls/hr Lactobacillus Acidophilus (Acidophilus) 1 tablet PO DAILY [facility] Last Admin: 06/09/18 09:17 Dose: 1 tablet Levothyroxine Sodium (Synthroid) 75 mcg PO DAILY@0600 [facility] Last Admin: 06/09/18 06:25 Dose: Not Given Magnesium Hydroxide (Milk Of Magnesia) 30 ml PO DAILY PRN PRN Reason: Constipation Melatonin (Melatonin) 3 mg PO QHS PRN PRN Reason: Insomnia Last Admin: 06/08/18 22:23 Dose: 3 mg Memantine (Namenda) 10 mg PO BID [facility] Last Admin: 06/09/18 09:18 Dose: 10 mg Nutritional Formula (Lactose Free) (Ensure Enlive) 120 ml PO 4X/DAY [facility] Last Admin: 06/09/18 13:52 Dose: Not Given Polyethylene Glycol (Miralax) 17 gm PO DAILY [facility] Last Admin: 06/09/18 13:48 Dose: 17 gm Psyllium Hydrophilic Mucilloid (Metamucil) 1 packet PO DAILY PRN PRN PRN Reason: CONSTIPATION Senna/Docusate Sodium (Senokot-S, Blanca-Colace) 2 tablet PO BID [facility] Last Admin: 06/09/18 09:19 Dose: 2 tablet Sodium Chloride () 5 - 30 ml IV UD PRN PRN Reason: SALINE FLUSH Trazodone HCl (Desyrel) 50 mg PO QHS PRN PRN Reason: Insomnia/agitation Last Admin: 06/08/18 23:54 Dose: 50 mg Medical Necessity - Tobacco Use Smoking Status: Former smoker Tobacco Use: Cigars, Pipe Assessment/Plan All Active Problems (Last Updated 06/06/18 @ 14:09 by Henrik Patel NP-C) Septic shock (Resolved) HCAP (healthcare-associated pneumonia) (Resolved) UTI (urinary tract infection) (Resolved) ALYSSA (acute kidney injury) (Resolved) Hyperkalemia (Resolved) Lactic acidosis (Resolved) Bradycardia (Acute) Hypothermia (Resolved) Hypomagnesemia (Resolved) Atherosclerosis of coronary artery of [place] heart without angina pectoris ( Ruled-out) The patient is a 82 year old M was discharged on 06/03/2018 when he was admitted for bradycardia along with hypothermia. Prior to that he was in the ICU for septic shock secondary to healthcare associated pneumonia and complicated UTI, acute kidney injury and bradycardia along with hyponatremia and hyperkalemia and hypothermia was sent to ER from [facility] for bradycardia and lethargic, and somnolent. His levothyroxine dose increased to 50 mcg from 25 last time. Patient is also on trazodone, vitamin memantine and galantamine. This time, he did not have hypothermia. Temperature was 96.3 Fahrenheit. In ED , heart rate in 40s. As per the EMS, his heart rate was in 40s. EKG shows marked sinus bradycardia with first-degree AV block and RBBB. Patient could not give history himself and has blank look secondary to Alzheimer 's dementia, Parkinson Parkinson's disease. His TSH level has been slowly improving, first one 8.64, 7.82 and then 4.8. Free T4 1.17 and then 1.50. 1. Marked sinus bradycardia, probably clinically hypothyroidism or effect of amiodarone and galantamine: Patient is being admitted on PCU for further monitoring. Troponin is negative. Amiodarone is discontinued. Increase Synthroid to 75 [address] Acuna. Patient recently had a dobutamine echocardiogram showed LV function normal, EF 65%. Negative for ischemia. No anginal symptoms during the stress test. During a stress test, he had transient A. fib which reverted back to normal sinus rhythm by the end of the procedure. Excellent chronotropic response to dobutamine. Galantamine was discontinued. There is improvement on heart rate. There is suspicion that patient might have sick sinus syndrome as baseline. 2. Poor functional capacity with adult failure to thrive: Lethargy/sleepiness, suggestive of acute encephalopathy probably from polypharmacy: Hold sleeping medications including trazodone, galantamine and memantine. Discussed with the patient's and daughter in detail. On IV fluid D5W nutritional support. Patient is DNR CC arrest. Wanted palliative care to help in making further decision regarding hospice. 3. Possible clinically hypothyroidism: Although biochemically seems euthyroid, free T4 1.5, TSH 4.88 but patient is bradycardic, slow, lazy, constipated, somnolent which might be multifactorial due to polypharmacy too. Repeat free T4 1.48. cortisol level was normal 20 micrograms per deciliter on 06/01/2018. Synthroid increased to 75 mcg daily. 4. Recent admission for healthcare acid pneumonia, UTI, hypothermia and hyperkalemia: Has been corrected. Resolved Other chronic comorbidities include Parkinson's disease, paroxysmal A. fib; not on anticoagulant, hypertension, Alzheimer's dementia, insomnia and low functional capacity: Home medication reconciliation done. DVT prophylaxis: On Lovenox 40 milligrams subcut daily. There is slight decrease in hemoglobin from 11.2-10.4. A further decrease in hemoglobin can discontinue Lovenox. Advanced directive: Patient is DNR CC arrest. Discussed with the patient's and daughter in detail. On IV fluid D5W half NS for nutritional support. She has poor oral intake. I discussed in detail regarding poor functional capacity , poor oral intake, recurrent admission in view of her edematous dementia and Parkinson's disease. Folate 7.6. B12 and vitamin D are pending Currently, patient is DNR CC arrest. Wanted palliative care to help in making further decision regarding hospice. Code Visit Inpatient E&M: 78140 Subs Hosp L2
[2018-06-09] MEDS: traZODone 50 MG Tablet PO (21:24)
[2018-06-09] MEDS: Menthol/Lanolin/Calamine/Znox 113 GM Tube 1 APPLIC TOPICAL (21:24)
[2018-06-09] MEDS: MELATONIN 3 MG TABLET PO (21:24)
--- NOTE | 2018-06-09 21:25 | NURSING ---
PATIENT IS STARTING TO GET AGITATED
[2018-06-10 03:00] VITALS: BP 155/74; PULSE 60; RESP 18; TEMP 36.4; O2SAT 98
[2018-06-10 03:24] VITALS: PULSE 60
[2018-06-10 06:49] LABS: Absolute Neutrophil Count 7.1 X10^3/uL (2.0-7.7); Basophil# 0.01 X10^3/uL; Basophil% 0.1 % (0-1); Eosinophil# 0.19 X10^3/uL; Eosinophils% 2.1 % (0-5); Hematocrit 34.3 % (40-54); Hemoglobin 10.9 g/dl (13.0-16.5); Lymphocyte % 10.1 % (19-41); Mean Corp Hgb Conc 31.8 g/gl (32-36); Mean Corpuscular Volume 94.5 fL (80-94); Mean Platelet Vol. 10.2 fl (6.2-12.0); Monocyte# 0.72 X10^3/uL; Monocyte% 8.1 % (0-10); Neutrophil # 7.08 X10^3/uL (2.7-7.7); Neutrophil % 79.3 % (47-70); Platelet Count 152 K/mm3 (150-450); RBC Distribution Width CV 17.6 % (11.6-14.6); RBC Distribution Width SD 59.2 fl (35.1-43.9); Red Blood Count 3.63 M/mm3 (4.6-6.2); White Blood Count 8.9 K/mm3 (4.4-11.0)
[2018-06-10 06:50] LABS: POSITIVE COUNT NO; POSITIVE DIFFERENTIAL NO; POSITIVE MORPHOLOGY NO
[2018-06-10 07:00] VITALS: PULSE 59
[2018-06-10] MEDS: Carbidopa/Levodopa 25/100 Tablet PO ×3 (08:26→16:56)
[2018-06-10] MEDS: Aspirin E.C. 81 MG Tablet PO (08:27)
[2018-06-10] MEDS: Famotidine 20 MG Tablet PO (08:29)
[2018-06-10] MEDS: amLODIPine 5 MG Tablet PO (08:29)
[2018-06-10] MEDS: Enoxaparin 40 MG/0.4 ML Syringe SC (08:30)
[2018-06-10] MEDS: Memantine Hydrochloride 10 MG Tablet PO (08:30)
[2018-06-10] MEDS: Senna/Docusate Sodium 1 Tablet 2 TABLET PO (08:31)
[2018-06-10] MEDS: Levothyroxine 75 MCG Tablet PO ×2 (08:39)
[2018-06-10] MEDS: Polyethylene Glycol 3350 17 GM PACKET PO (08:43)
[2018-06-10 09:00] VITALS: BP 140/73; PULSE 55; RESP 18; TEMP 36.3; O2SAT 96
[2018-06-10 09:02] LABS: Vitamin B12 821 pg/mL (211-911); Vitamin D,25 Hydroxy 26.7 ng/mL (29.95-100.01)
[2018-06-10] MEDS: Menthol/Lanolin/Calamine/Znox 113 GM Tube 1 APPLIC TOPICAL ×3 (10:28→16:57)
[2018-06-10 11:00] VITALS: PULSE 60
--- NOTE | 2018-06-10 11:09 | CASEMGMT ---
MARITZA faxed updates to [facility] where patient is from. MARITZA also spoke with Monique at Palliative[facility]Hospice and they plan on following up with patient's today. Gisell HUNTER MSW
--- NOTE | 2018-06-10 12:46 | PCM.PN.HOSP ---
Subjective: Patient was seen and examined. His remains at the bedside. No acute events overnight. Waiting on hospice to assess patient. Patient has remained mostly bradycardic; heart rate 55 at the time of exam Objective: Physical exam: General: Alert, not oriented to person, place or time, Cooperative, non-verbal for the most part HEENT: Atraumatic, PERRLA, EOMI, Normocephalic, masked facies Neck: Supple, No JVD, Negative Carotid Bruits Lungs: No rhonchi, No wheeze, Diminished Cardiovascular: Regular Rhythm, Normal S1, Normal S2, No murmurs, Bradycardic Abdomen: Bowel Sounds Present, Soft, Non Tender, Non-Distended Extremities: Capillary Refill Less than 3 Seconds, No edema Skin: No rashes, No breakdown Musculoskeletal: No Tenderness to Palpation of Joints or Extremities Neurological: Cranial nerves II-XII grossly intact Psych/Mental Status: Normal Affect, Appropriate Vitals/I&O's: Vital Signs Temp Pulse Resp BP Pulse Ox 97.4 F L 60 18 140/73 H 96 06/10/18 09:00 06/10/18 11:00 06/10/18 09:00 06/10/18 09:00 06/10/18 09:00 Oxygen Delivery Method Room Air Weight: 88.6 kg Body Mass Index (BMI) 26.4 Intake and Output for Last 24 Hours 06/08/18 06/09/18 06/10/18 23:59 23:59 23:59 Intake Total 2052 1824 / 1824 965 / 965 Output Total 100 / 100 200 / 200 Balance 1952 1824 / 1824 765 / 765 Laboratory Results 06/09/18 05:40: Vitamin B12 821, Vitamin D 25-Hydroxy 26.7 L 06/10/18 06:25: WBC 8.9, RBC 3.63 L, Hgb 10.9 L, Hct 34.3 L, MCV 94.5 H, MCH 30.0, MCHC 31.8 L, RDW 17.6 H, RDW Differential 59.2 H, Plt Count 152, MPV 10.2, Immature Gran % (Auto) 0.300, Neut % (Auto) 79.3 H, Lymph % (Auto) 10.1 L, [place] % (Auto) 8.1, Eos % (Auto) 2.1, Baso % (Auto) 0.1, Absolute Neuts (auto) 7.1, Absolute Lymphs (auto) 0.90, Total Counted Not Reportable Current Medications Albuterol/Ipratropium (Duoneb) 3 ml INHALATION Q6H PRN PRN PRN Reason: SOB &/OR WHEEZING Amlodipine Besylate (Norvasc) 5 mg PO DAILY [facility] Last Admin: 06/10/18 08:29 Dose: 5 mg Aspirin (Ecotrin) 81 mg PO DAILY [facility] Last Admin: 06/10/18 08:27 Dose: 81 mg Bisacodyl (Dulcolax) 5 mg PO DAILY PRN PRN PRN Reason: severe Constipation Calamine/Phenol (Calmoseptine Ointment) 1 applic TOPICAL 4X/DAY [facility] PRN Reason: Protocol Last Admin: 06/10/18 10:28 Dose: 1 applic Carbidopa/Levodopa (Sinemet) 1 tablet PO TIDPC [facility] Last Admin: 06/10/18 08:26 Dose: 1 tablet Enoxaparin Sodium (Lovenox) 40 mg SC DAILY@1000 [facility] Last Admin: 06/10/18 08:30 Dose: 40 mg Famotidine (Pepcid) 20 mg PO BID [facility] Last Admin: 06/10/18 08:29 Dose: 20 mg Dextrose/Sodium Chloride () 1,000 mls @ 50 mls/hr IV .Q20H [facility] Last Admin: 06/10/18 05:22 Dose: Not Given Lactobacillus Acidophilus (Acidophilus) 1 tablet PO DAILY [facility] Last Admin: 06/10/18 08:27 Dose: 1 tablet Levothyroxine Sodium (Synthroid) 75 mcg PO DAILY@0600 [facility] Last Admin: 06/10/18 08:39 Dose: 75 mcg Magnesium Hydroxide (Milk Of Magnesia) 30 ml PO DAILY PRN PRN Reason: Constipation Melatonin (Melatonin) 3 mg PO QHS PRN PRN Reason: Insomnia Last Admin: 06/09/18 21:24 Dose: 3 mg Memantine (Namenda) 10 mg PO BID [facility] Last Admin: 06/10/18 08:30 Dose: 10 mg Nutritional Formula (Lactose Free) (Ensure Enlive) 120 ml PO 4X/DAY [facility] Last Admin: 06/10/18 08:43 Dose: 120 ml Polyethylene Glycol (Miralax) 17 gm PO DAILY [facility] Last Admin: 06/10/18 08:43 Dose: 17 gm Psyllium Hydrophilic Mucilloid (Metamucil) 1 packet PO DAILY PRN PRN PRN Reason: CONSTIPATION Senna/Docusate Sodium (Senokot-S, Blanca-Colace) 2 tablet PO BID [facility] Last Admin: 06/10/18 08:31 Dose: 2 tablet Sodium Chloride () 5 - 30 ml IV UD PRN PRN Reason: SALINE FLUSH Trazodone HCl (Desyrel) 50 mg PO QHS PRN PRN Reason: Insomnia/agitation Last Admin: 06/09/18 21:24 Dose: 50 mg Medical Necessity - Tobacco Use Smoking Status: Former smoker Tobacco Use: Cigars, Pipe Assessment/Plan All Active Problems (Last Updated 06/06/18 @ 14:09 by Henrik Patel VISUAL INSPECTOR-C) Septic shock (Resolved) HCAP (healthcare-associated pneumonia) (Resolved) UTI (urinary tract infection) (Resolved) ALYSSA (acute kidney injury) (Resolved) Hyperkalemia (Resolved) Lactic acidosis (Resolved) Bradycardia (Acute) Hypothermia (Resolved) Hypomagnesemia (Resolved) Atherosclerosis of coronary artery of [place] heart without angina pectoris (Ruled-out) 82-year-old male with past medical history of paroxysmal atrial fibrillation, recently admitted and discharged on 06/03/2018 with bradycardia as well as hypothermia. He was admitted at this time on 09/27/2017 with shortness of breath and bradycardia. His heart rate was in the 40s. Patient is off amiodarone and has remained off. Cardiology consulted. 1. Bradycardia, sinus, likely medication side effect, of amiodarone, history of hypothyroidism, Synthroid recently increased to 75mcg/day, will continue to monitor 2. Hypothyroidism, on Synthroid 3. Hypertension, controlled, continue on amlodipine 4. Debility/Parkinson's disease/advanced Alzheimer's disease/recent recurrent admissions, family considering palliative care/hospice, waiting for hospice team to assess. 5. DVT PPx- Lovenox SC 6. Disposition: Pending evaluation by Hospice/Palliative team; DC to SNF Code Visit Inpatient E&M: 15796 Subs Hosp L2
--- NOTE | 2018-06-10 12:51 | PN_ITS ---
Subjective: Patient was seen and examined. His remains at the bedside. No acute events overnight. Waiting on hospice to assess patient. Patient has remained mostly bradycardic; heart rate 55 at the time of exam Objective: Physical exam: General: Alert, not oriented to person, place or time, Cooperative, non-verbal for the most part HEENT: Atraumatic, PERRLA, EOMI, Normocephalic, masked facies Neck: Supple, No JVD, Negative Carotid Bruits Lungs: No rhonchi, No wheeze, Diminished Cardiovascular: Regular Rhythm, Normal S1, Normal S2, No murmurs, Bradycardic Abdomen: Bowel Sounds Present, Soft, Non Tender, Non-Distended Extremities: Capillary Refill Less than 3 Seconds, No edema Skin: No rashes, No breakdown Musculoskeletal: No Tenderness to Palpation of Joints or Extremities Neurological: Cranial nerves II-XII grossly intact Psych/Mental Status: Normal Affect, Appropriate Vitals/I&O's: Vital Signs Temp Pulse Resp BP Pulse Ox 97.4 F L 60 18 140/73 H 96 06/10/18 09:00 06/10/18 11:00 06/10/18 09:00 06/10/18 09:00 06/10/18 09:00 Oxygen Delivery Method Room Air Weight: 88.6 kg Body Mass Index (BMI) 26.4 Intake and Output for Last 24 Hours 06/08/18 06/09/18 06/10/18 23:59 23:59 23:59 Intake Total 2052 1824 / 1824 965 / 965 Output Total 100 / 100 200 / 200 Balance 1952 1824 / 1824 765 / 765 Laboratory Results 06/09/18 05:40: Vitamin B12 821, Vitamin D 25-Hydroxy 26.7 L 06/10/18 06:25: WBC 8.9, RBC 3.63 L, Hgb 10.9 L, Hct 34.3 L, MCV 94.5 H, MCH 30.0, MCHC 31.8 L, RDW 17.6 H, RDW Differential 59.2 H, Plt Count 152, MPV 10.2 , Immature Gran % (Auto) 0.300, Neut % (Auto) 79.3 H, Lymph % (Auto) 10.1 L, [place] % (Auto) 8.1, Eos % (Auto) 2.1, Baso % (Auto) 0.1, Absolute Neuts (auto) 7.1, Absolute Lymphs (auto) 0.90, Total Counted Not Reportable Current Medications Albuterol/Ipratropium (Duoneb) 3 ml INHALATION Q6H PRN PRN PRN Reason: SOB &/OR WHEEZING Amlodipine Besylate (Norvasc) 5 mg PO DAILY [facility] Last Admin: 06/10/18 08:29 Dose: 5 mg Aspirin (Ecotrin) 81 mg PO DAILY [facility] Last Admin: 06/10/18 08:27 Dose: 81 mg Bisacodyl (Dulcolax) 5 mg PO DAILY PRN PRN PRN Reason: severe Constipation Calamine/Phenol (Calmoseptine Ointment) 1 applic TOPICAL 4X/DAY [facility] PRN Reason: Protocol Last Admin: 06/10/18 10:28 Dose: 1 applic Carbidopa/Levodopa (Sinemet) 1 tablet PO TIDPC [facility] Last Admin: 06/10/18 08:26 Dose: 1 tablet Enoxaparin Sodium (Lovenox) 40 mg SC DAILY@1000 [facility] Last Admin: 06/10/18 08:30 Dose: 40 mg Famotidine (Pepcid) 20 mg PO BID [facility] Last Admin: 06/10/18 08:29 Dose: 20 mg Dextrose/Sodium Chloride () 1,000 mls @ 50 mls/hr IV .Q20H [facility] Last Admin: 06/10/18 05:22 Dose: Not Given Lactobacillus Acidophilus (Acidophilus) 1 tablet PO DAILY [facility] Last Admin: 06/10/18 08:27 Dose: 1 tablet Levothyroxine Sodium (Synthroid) 75 mcg PO DAILY@0600 [facility] Last Admin: 06/10/18 08:39 Dose: 75 mcg Magnesium Hydroxide (Milk Of Magnesia) 30 ml PO DAILY PRN PRN Reason: Constipation Melatonin (Melatonin) 3 mg PO QHS PRN PRN Reason: Insomnia Last Admin: 06/09/18 21:24 Dose: 3 mg Memantine (Namenda) 10 mg PO BID [facility] Last Admin: 06/10/18 08:30 Dose: 10 mg Nutritional Formula (Lactose Free) (Ensure Enlive) 120 ml PO 4X/DAY [facility] Last Admin: 06/10/18 08:43 Dose: 120 ml Polyethylene Glycol (Miralax) 17 gm PO DAILY [facility] Last Admin: 06/10/18 08:43 Dose: 17 gm Psyllium Hydrophilic Mucilloid (Metamucil) 1 packet PO DAILY PRN PRN PRN Reason: CONSTIPATION Senna/Docusate Sodium (Senokot-S, Blanca-Colace) 2 tablet PO BID [facility] Last Admin: 06/10/18 08:31 Dose: 2 tablet Sodium Chloride () 5 - 30 ml IV UD PRN PRN Reason: SALINE FLUSH Trazodone HCl (Desyrel) 50 mg PO QHS PRN PRN Reason: Insomnia/agitation Last Admin: 06/09/18 21:24 Dose: 50 mg Medical Necessity - Tobacco Use Smoking Status: Former smoker Tobacco Use: Cigars, Pipe Assessment/Plan All Active Problems (Last Updated 06/06/18 @ 14:09 by Henrik Patel OFFICE SPECIALIST-C) Septic shock (Resolved) HCAP (healthcare-associated pneumonia) (Resolved) UTI (urinary tract infection) (Resolved) ALYSSA (acute kidney injury) (Resolved) Hyperkalemia (Resolved) Lactic acidosis (Resolved) Bradycardia (Acute) Hypothermia (Resolved) Hypomagnesemia (Resolved) Atherosclerosis of coronary artery of [place] heart without angina pectoris ( Ruled-out) 82-year-old male with past medical history of paroxysmal atrial fibrillation, recently admitted and discharged on 06/03/2018 with bradycardia as well as hypothermia. He was admitted at this time on 09/27/2017 with shortness of breath and bradycardia. His heart rate was in the 40s. Patient is off amiodarone and has remained off. Cardiology consulted. 1. Bradycardia, sinus, likely medication side effect, of amiodarone, history of hypothyroidism, Synthroid recently increased to 75mcg/day, will continue to monitor 2. Hypothyroidism, on Synthroid 3. Hypertension, controlled, continue on amlodipine 4. Debility/Parkinson's disease/advanced Alzheimer's disease/recent recurrent admissions, family considering palliative care/hospice, waiting for hospice team to assess. 5. DVT PPx- Lovenox SC 6. Disposition: Pending evaluation by Hospice/Palliative team; DC to SNF Code Visit Inpatient E&M: 44330 Subs Hosp L2
--- NOTE | 2018-06-10 14:39 | PCM.TXEXTCAR ---
- Diet Regular diet - Routine Orders/Code Status Routine Lab Work: CBC - in 3 days, BMP - in 3 days Code Status: DNRCC-A - Wound(s) COCCYX Wound Type: Pressure Injury - Therapies Physical Therapy: Eval and Treat Occupational Therapy: Eval and Treat - Allergies/Procedures Done in Hospital Allergies/Adverse Reactions: Allergies No Known Allergies Allergy (Verified 06/07/18 11:07) Procedures: None - Type of Care/Length of Stay Estimated LOS: Convalescent Care Less Than 30 days Type of Care Needed: Skilled Rehab Potential: Fair Prognosis: Fair - Additional Orders/Day of Discharge Day of Discharge: 06/10/18 - Dietary and Speech Recommendations Dietitian Recommendations/Changes: Rec liberalize diet to regular, low sodium d/t signs/symptoms of malnutrition. - Follow Up Care Primary Care Physician: Sarwat Sanches Chi, MD [Primary Care Provider] - Please follow up with your Primary Care Physician in: within 2 weeks of discharge
--- NOTE | 2018-06-10 14:40 | CASEMGMT ---
MARITZA spoke with [employer] at [facility]. They will admit patient to Palliative Care once he returns to [facility]. MARITZA told her that would be today. MARITZA notified Stephanie at [facility] that patient will be returning today. Plan: d/c back to [facility] with Palliative Care. Orders will need faxed to [facility] and [facility] as well as transport will need set up. Gisell HUNTER MSW
--- NOTE | 2018-06-10 14:43 | TREXTCAR_ITS ---
- Diet Regular diet - Routine Orders/Code Status Routine Lab Work: CBC - in 3 days, BMP - in 3 days Code Status: DNRCC-A - Wound(s) COCCYX Wound Type: Pressure Injury - Therapies Physical Therapy: Eval and Treat Occupational Therapy: Eval and Treat - Allergies/Procedures Done in Hospital Allergies/Adverse Reactions: Allergies No Known Allergies Allergy (Verified 06/07/18 11:07) Procedures: None - Type of Care/Length of Stay Estimated LOS: Convalescent Care Less Than 30 days Type of Care Needed: Skilled Rehab Potential: Fair Prognosis: Fair - Additional Orders/Day of Discharge Day of Discharge: 06/10/18 - Dietary and Speech Recommendations Dietitian Recommendations/Changes: Rec liberalize diet to regular, low sodium d/ t signs/symptoms of malnutrition. - Follow Up Care Primary Care Physician: Sarwat Sanches Chi, MD [Primary Care Provider] - Please follow up with your Primary Care Physician in: within 2 weeks of discharge
--- NOTE | 2018-06-10 14:44 | DS.PCM_ITS ---
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 No acute intracranial abnormality. No significant change from 05/27/2018. Electronically Signed: Deshaun Jarvis DO at 14:41 EDT Tel , Service support , Chest X-Ray 06/07/18 11:24 IMPRESSION: Improved aeration of the left lung base. Mild residual changes persist. 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 He was admitted at this time on 06/07/2018 with shortness of breath and bradycardia. His heart rate was in the 40s. Patient is off amiodarone and has remained off. Cardiology consulted. 1. Bradycardia, sinus, likely medication side-effect, of amiodarone, history of hypothyroidism, Synthroid recently increased to 75mcg/day, he will up with cardiology. 2. Hypothyroidism, on Synthroid 3. Hypertension, controlled, continue on amlodipine 4. Debility/Parkinson's disease/advanced Alzheimer's disease/recent recurrent admissions, family considering palliative care/hospice, He will get palliative care in the skilled nursing. Discharge Diet: Low fat/ Low Cholesterol, 2000 mg Sodium Diet Discharge Activity: Return to Normal Activity Home Medications: Medications to take at Discharge aspirin 81 mg tablet,delayed release 81 mg PO DAILY 02/13/18 carbidopa 25 mg-levodopa 100 mg tablet 1 tab PO TID 02/13/18 memantine 28 mg capsule sprinkle,extended release 24hr 28 mg PO DAILY 02/13/18 Amlodipine [Norvasc] 5 mg PO DAILY 05/26/18 Melatonin 3 mg PO QHS 05/26/18 Polyethylene Glycol 3350 [Purelax] 17 gm PO DAILY 05/26/18 traZODone [Desyrel] 50 mg PO QHS 05/26/18 Ipratropium/Albuterol Sulfate [Duoneb] 3 ml INHALATION Q6H PRN PRN ampul.neb L. Rhamnosus GG/Inulin [Culturelle Capsule] 1 each PO DAILY 06/07/18 Bisacodyl [Dulcolax] 5 mg PO DAILY PRN PRN tablet 06/10/18 Enoxaparin [Lovenox] 40 mg SC DAILY@1000 syringe 06/10/18 Ensure Enlive 120 ml PO 4X/DAY liquid 06/10/18 Ergocalciferol [Vitamin D] 50,000 unit PO Q7D capsule 06/10/18 Ipratropium/Albuterol Sulfate [Duoneb] 3 ml INHALATION Q6H PRN PRN ampul.neb Lactobacillus Acidophilus [Acidophilus] 1 tablet PO DAILY tablet 06/10/18 Levothyroxine [Synthroid] 75 mcg PO DAILY@0600 tablet 06/10/18 Menthol/Lanolin/Calamine/Znox [Calmoseptine Ointment] 1 applic TOPICAL 4X/DAY tube 06/10/18 Primary Care Physician: Sarwat Sanches Chi, MD [Primary Care Provider] - Please follow up with your Primary Care Physician in: within 2 weeks of discharge Disposition: Group Home facility Minutes spent on discharge:: 45 Patient Condition:: Stable Medical Necessity - Tobacco Use Smoking Status: Former smoker Tobacco Use: Cigars, Pipe Meaningful Use Info Meaningful Use Diagnoses (Choose all that apply): None applicable Code Visit Inpatient E&M: 46021 Disch Hosp
--- NOTE | 2018-06-10 15:48 | NURSING ---
wound photo: bilateral buttocks
--- NOTE | 2018-06-10 17:48 | CASEMGMT ---
Social Work: TC to [facility]. Transportation by cot scheduled for 6:00pm. KWASI Brown at [facility]. Stephanie aware of transport time. D/C orders and med list faxed to [facility]. PCU private secretary and charge nurse aware of time of transport back to [facility]. PLAN: Patient to return to [facility] for assisted care. JEAN Elkins
[2018-06-10 18:00] VITALS: BP 137/67; PULSE 51; RESP 18; TEMP 36.3; O2SAT 97
== END 2018-06-10 18:35 | disposition skilled nursing facility (03) | DRG 310 ==
LOC: ED 16:38 → PCU 16:44
PROVIDERS: Admitting Provider Internal Medicine; Emergency Provider Emergency Medicine; Family Provider Family Medicine Geriatric Medicine; PCP Family Medicine Geriatric Medicine; Visit Provider Internal Medicine
DX: R00.1 Bradycardia, unspecified (principal); T46.2X5A Adverse effect of other antidysrhythmic drugs, initial encounter; G30.9 Alzheimer's disease, unspecified; F02.80 Dementia in other diseases classified elsewhere, unspecified severity, without behavioral disturbance, psychotic disturbance, mood disturbance, and anxiety; G20 Parkinson's disease; I48.0 Paroxysmal atrial fibrillation; I10 Essential (primary) hypertension; E03.9 Hypothyroidism, unspecified; E78.5 Hyperlipidemia, unspecified; Z87.891 Personal history of nicotine dependence; Z90.5 Acquired absence of kidney; Z66 Do not resuscitate; R62.7 Adult failure to thrive; I45.10 Unspecified right bundle-branch block; I44.0 Atrioventricular block, first degree
CPT/HCPCS: 36415; 70450; 71045; 80048; 81001; 82306; 82607; 82746; 84439; 84443; 84484; 85025; 93005; 97162; 97166; 97530; 97802; 99285; 99406; J7030; P9612; J7799